=== PATIENT | female | born 1970 | race Caucasian/White ===

== ENCOUNTER 2019-05-09 14:02 | Outpatient (RCR) | payer MEDICARE, MEDICAID, SELFPAY | END 2019-06-04 00:01 | LOC: MPT 14:02 | PROVIDERS: Family Provider Nurse Practitioner; Visit Provider Specialist | DX: M51.16 Intervertebral disc disorders with radiculopathy, lumbar region (principal) | CPT/HCPCS: 97110; 97140; 97162; G0283 ==

== ENCOUNTER 2019-06-05 06:00 | Outpatient (RCR) | payer MEDICARE, SELFPAY | END 2019-07-05 23:59 | disposition home or self-care (01) | LOC: MPT 06:00 | PROVIDERS: PCP Nurse Practitioner; Visit Provider Specialist | DX: M54.5 Low back pain (principal) | CPT/HCPCS: 97032; 97110; 97113; 97140 ==

== ENCOUNTER → 2019-06-24 09:58 | Outpatient (BNVA) | payer MEDICARE, MEDICAID, SELFPAY | PROVIDERS: PCP Nurse Practitioner; Referring Provider Specialist; Visit Provider Psychiatry & Neurology Neurology | DX: M51.17 Intervertebral disc disorders with radiculopathy, lumbosacral region (principal); M54.9 Dorsalgia, unspecified; M79.604 Pain in right leg; M79.605 Pain in left leg | CPT/HCPCS: 95886; 95909 ==

== ENCOUNTER → 2019-07-22 09:50 | Outpatient (BNVA) | payer MEDICARE, MEDICAID, SELFPAY | PROVIDERS: Family Provider Nurse Practitioner; PCP Nurse Practitioner; Visit Provider Anesthesiology Pain Medicine | DX: M79.18 Myalgia, other site (principal); M51.16 Intervertebral disc disorders with radiculopathy, lumbar region; M43.16 Spondylolisthesis, lumbar region; M96.1 Postlaminectomy syndrome, not elsewhere classified; Z98.1 Arthrodesis status; F17.210 Nicotine dependence, cigarettes, uncomplicated; Z79.891 Long term (current) use of opiate analgesic | CPT/HCPCS: 20553; 99999 ==

== ENCOUNTER 2019-07-23 08:34 | Outpatient (CLI) | payer MEDICARE, MEDICAID, SELFPAY ==
--- NOTE | 2019-07-23 08:45 | XR_ITS ---
WS: [id number] LUMBAR SPINE FLEXION AND EXTENSION TECHNIQUE: 3 views of the lumbar spine: Lateral neutral, flexion, and extension views. CLINICAL INFORMATION: lumbar pain COMPARISON: None. FINDINGS: Normal lumbar alignment on the neutral view. No instability on the flexion and extension views. Prior postoperative changes pedicle screw fixation L4-5. Hardware appears unchanged. XR/XR lumbar spine f/e only [id number] IMPRESSION: Stable pedicle screw fixation L4-5. No instability on flexion-extension.
--- NOTE | 2019-07-23 08:52 | MR_ITS ---
WS: [id number] MRI LUMBAR SPINE WITH CONTRAST TECHNIQUE: Sagittal T1, T2 and STIR imaging. Axial T1 and T2 imaging. Post gadolinium imaging was obt ained. CLINICAL INFORMATION: lumbar pain, INTERVERTEBRAL DISC DISORDER COMPARISON: None. FINDINGS: Normal anatomic alignment. Postoperative changes pedicle screw fixation L4-5 with interbody fusion. M ild disc bulging L3-4. 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 Mild chronic central canal stenosi s at this level with mild disc bulging at T10-11. L1-L2: Normal. L2-L3: No significant disc bulging. Mild facet arthropathy. Spinal canal and foramen are patent. L3-L4: Left pericentral disc protrusion with impingement left subarticular recess and traversing left L4 nerve root. Moderate central canal stenosis. Moderate facet arthropathy. Mild right greater than left foraminal narrowing. L4-L5: Pedicle screw fixation with laminectomy defects. Moderate facet arthropathy. Spinal canal and foramen are patent. L5-S1: Tiny central disc protrusion. Moderate facet arthropathy. Spinal canal and foramen are patent. Visualized pelvic bony structures: Normal. Paravertebral soft tissues: Normal. Prior postoperative changes cervical spine seen on the coremaker machine imaging. MR/MR lumbar spine wo/w con [id number] IMPRESSION: 1. Prominent left pericentral disc protrusion L3-4 impinges the left subarticu lar recess and left L4 nerve root. Moderate central canal stenosis. Mild right greater than left foraminal narrowing. 2. Prior postoperative changes pedicle screw fixation L4-5 with interbody fusi on. Laminectomy defects. Spinal canal has been decompressed. 3. Tiny central protrusion L5-S1 without significant nerve root impingement. 4. Congenital segmentation anomaly T11 vertebral body with mild chronic centra l canal stenosis
== END 2019-07-23 08:35 | disposition home or self-care (01) ==
LOC: RADWPI 08:40
PROVIDERS: Family Provider Nurse Practitioner; PCP Nurse Practitioner; Visit Provider Specialist
DX: M51.26 Other intervertebral disc displacement, lumbar region (principal); M48.04 Spinal stenosis, thoracic region
CPT/HCPCS: 72120; 72158; A9579

== ENCOUNTER → 2019-08-01 12:58 | Outpatient (BNVA) | payer MEDICARE, SELFPAY | PROVIDERS: Family Provider Nurse Practitioner; PCP Nurse Practitioner; Visit Provider Anesthesiology Pain Medicine | DX: M51.16 Intervertebral disc disorders with radiculopathy, lumbar region (principal); M51.36 Other intervertebral disc degeneration, lumbar region; F17.210 Nicotine dependence, cigarettes, uncomplicated | CPT/HCPCS: 64483; 77003; J1040; J2001; J3490 ==

== ENCOUNTER → 2019-08-09 10:40 | Outpatient (BNVA) | payer MEDICARE, SELFPAY | PROVIDERS: Family Provider Nurse Practitioner; PCP Nurse Practitioner; Visit Provider Anesthesiology Pain Medicine | DX: M96.1 Postlaminectomy syndrome, not elsewhere classified (principal); M51.16 Intervertebral disc disorders with radiculopathy, lumbar region; M79.18 Myalgia, other site; M54.9 Dorsalgia, unspecified; M43.16 Spondylolisthesis, lumbar region; Z98.1 Arthrodesis status | CPT/HCPCS: 20553; 99999; J1030; J3490 ==

== ENCOUNTER → 2019-08-13 14:19 | Outpatient (BNVA) | payer MEDICARE, SELFPAY | PROVIDERS: Family Provider Nurse Practitioner; PCP Nurse Practitioner; Visit Provider Anesthesiology Pain Medicine | DX: M51.16 Intervertebral disc disorders with radiculopathy, lumbar region (principal); M96.1 Postlaminectomy syndrome, not elsewhere classified; F17.210 Nicotine dependence, cigarettes, uncomplicated; Z79.891 Long term (current) use of opiate analgesic | CPT/HCPCS: 64483; 64484; J1030; J2001; J3490 ==

== ENCOUNTER → 2020-01-02 10:15 | Outpatient (BNVA) | payer MEDICARE, SELFPAY | PROVIDERS: Family Provider Nurse Practitioner; PCP Nurse Practitioner; Visit Provider Emergency Medicine | DX: N39.0 Urinary tract infection, site not specified (principal) | CPT/HCPCS: 81000 ==

== ENCOUNTER → 2020-04-02 09:44 | Outpatient (BNVA) | payer MEDICARE, SELFPAY | PROVIDERS: Family Provider Nurse Practitioner; PCP Physician Assistant Medical; Visit Provider Anesthesiology Pain Medicine | DX: M51.16 Intervertebral disc disorders with radiculopathy, lumbar region (principal); M43.16 Spondylolisthesis, lumbar region; M96.1 Postlaminectomy syndrome, not elsewhere classified; M54.9 Dorsalgia, unspecified; F17.210 Nicotine dependence, cigarettes, uncomplicated; Z98.1 Arthrodesis status; Z79.891 Long term (current) use of opiate analgesic | CPT/HCPCS: 99213; 99214 ==

== ENCOUNTER → 2020-04-10 13:04 | Outpatient (BNVA) | payer MEDICARE, SELFPAY | PROVIDERS: Family Provider Nurse Practitioner; PCP Physician Assistant Medical; Visit Provider Anesthesiology Pain Medicine | DX: M54.16 Radiculopathy, lumbar region (principal); M54.9 Dorsalgia, unspecified; Z79.891 Long term (current) use of opiate analgesic | CPT/HCPCS: 64483; 64484; J1100; J3490 ==

== ENCOUNTER → 2020-05-15 10:19 | Outpatient (BNVA) | payer MEDICARE, SELFPAY | PROVIDERS: Family Provider Nurse Practitioner; PCP Physician Assistant Medical; Visit Provider Anesthesiology Pain Medicine | DX: M51.16 Intervertebral disc disorders with radiculopathy, lumbar region (principal); M54.9 Dorsalgia, unspecified; M96.1 Postlaminectomy syndrome, not elsewhere classified; M43.16 Spondylolisthesis, lumbar region; Z98.1 Arthrodesis status | CPT/HCPCS: 99212; 99214 ==

== ENCOUNTER 2021-05-12 02:12 | Emergency (ER) | payer MEDICARE, MEDICAID, SELFPAY ==
--- NOTE | 2021-05-12 | XR_ITS ---
WS: [id number] Exam: XR wrist RT min 3V* [id number] Date/Time of Exam: 05/12/2021 12:00 AM Reason For Exam: INJURY There are no fractures, soft tissue swelling, or unusual calcifications. The wrist shows normal bony alignment. There is no irregularity of the bony architecture. XR/XR wrist RT min 3V* [id number] IMPRESSION: Negative right wrist.
[2021-05-12 02:12] VITALS: BP 128/81; PULSE 86; RESP 18; TEMP 37.2; O2SAT 98; BMI 30.7
--- NOTE | 2021-05-12 02:21 | XRR_ITS ---
PROCEDURE INFORMATION: Exam: XR Right Elbow Exam date and time: 05/12/2021 2:21 AM Age: 50 years old Clinical indication: Injury or trauma; Fall; Blunt trauma (contusions or hematomas); Right; Patient HX: Patient fell with hyperextension of RT shoulder. Also C/O elbow and wrist pain. Best films obtained as patient could barely ambulate arm for positioning. TECHNIQUE: Imaging protocol: XR Right elbow. Views: 3 or more views. Total images: 3 COMPARISON: CR (CHEST, ) 05/12/2021 3:27 AM FINDINGS: Bones/joints: Normal. Soft tissues: Normal. XR/XR elbow RT min 3V* [id number] IMPRESSION: No acute findings.
--- NOTE | 2021-05-12 02:21 | XRR_ITS ---
PROCEDURE INFORMATION: Exam: XR Right Shoulder Exam date and time: 05/12/2021 2:21 AM Age: 50 years old Clinical indication: Injury or trauma; Fall; Blunt trauma (contusions or hematomas); Right; Patient HX: Patient fell with hyperextension of RT shoulder. Also C/O elbow and wrist pain. Best films obtained as patient could barely ambulate arm for positioning. TECHNIQUE: Imaging protocol: XR Right shoulder. Views: 2 or more views. Total images: 3 COMPARISON: No relevant prior studies available. FINDINGS: Bones/joints: Partially visualized spinal fusion hardware noted. No acute fracture nor subluxation. No osseous erosion nor periosteal reaction. Soft tissues: Normal. XR/XR shoulder RT min 2V* [id number] IMPRESSION: No acute osseous pathology.
--- NOTE | 2021-05-12 02:22 | W.ED.UPPEXIN ---
HPI - Extremity Injury (Upper) General: Chief Complaint: Extremity Injury, Upper Stated Complaint: right shoulder pain post fall Time Seen by Provider: 05/12/21 02:16 History of Present Illness: HPI narrative: 50-year-old female comes in today with complaints of injury to the right shoulder and arm. Patient reports she went to get up to go the bathroom and tripped and fell. Patient reports that her right arm went up behind her head since then she has had difficulty and pain in the shoulder. Patient appears well. Patient appears no acute distress. Patient has shoulder in the sling for protection. No obvious dislocation is noted. Review of Systems General: Reports: 10 or more systems reviewed and unremarkable except in HPI and below Musc: Reports: other (Right upper extremity injury) [facility] ED PFSH: Medical History (Updated 05/12/21 @ 03:03 by PARTH Melendez) Postlaminectomy syndrome of lumbosacral region Spondylolisthesis, lumbar region Tobacco abuse Surgical History H/O: hysterectomy (~1993) History of appendectomy (~1989) History of cholecystectomy (~1994) History of lumbar fusion (~05/10/11) S/P cervical spinal fusion (~06/15/06) Family History Mother Diabetes Hypertension CAD (coronary artery disease) Sister Hypertension Father Hypertension Social History Smoking and tobacco status: current every day smoker Alcohol intake: never Lives independently: Yes Marital status: Current occupational status: unemployed and disabled Physical Exam Const: COMMON NORMALS: no acute distress and patient oriented x3 GENERAL APPEARANCE: cooperative HENMT: COMMON NORMALS: normocephalic, TM's normal bilaterally and Normal external nose present HEAD & SCALP: normal to inspection and normocephalic NOSE: Normal external nose present TYMPANIC MEMBRANE: TM's normal bilaterally MOUTH: Normal oral and palatal mucosa present THROAT: posterior oropharynx normal Eye: GENERAL EYE: appearance normal, both eyes and all related structures Neck/C-Spine: COMMON NORMALS: full ROM Chest: COMMONS NORMALS: normal inspection of the chest Resp: COMMON NORMALS: normal respiratory effort EFFORT & INSPECTION: Yes able to speak in complete sentences Cardio: COMMON NORMALS: regular rate and regular rhythm RATE: regular rate RHYTHM: regular rhythm GI: COMMON NORMALS: non-tender Back/Pelvis: COMMON NORMALS: thoracic and lumbar spine normal to inspection Extremity: NARRATIVE EXTREMITY EXAM: Tenderness noted to the right shoulder anteriorly. Tenderness is also noted to the elbow and wrist on palpation. Patient does have range of motion but is very guarded due to pain. Neuro: COMMON NORMALS: patient oriented x3 and moves all extremities Psych: COMMON NORMALS: mental status grossly normal and cooperative Skin: COMMON NORMALS: no rashes or lesions noted GENERAL SKIN EXAM: no rashes or lesions noted Course Vital Signs: Vital signs: Vital Signs Temperature 98.9 F 05/12/21 02:12 Pulse Rate 92 05/12/21 04:27 Respiratory Rate 18 05/12/21 04:27 Blood Pressure 145/68 05/12/21 04:27 Pulse Oximetry 95 05/12/21 04:27 MDM - Extremity Injury (Upper) MDM Narrative: Medical decision making narrative: Patient comes in [facility] for concerns of injury to the right shoulder. Patient reports she was getting up off the couch and tripped causing her to fall onto her right side with her arm outstretched in front of her. Patient reports shoulder pain and radiation of pain into her elbow and wrist. On exam there is no obvious deformity or dislocation. Pulses are intact. Patient is very guarded with movement of the shoulder. Differential diagnosis includes but not limited to dislocation, fracture, sprain. X-rays were negative for any fractures or dislocation. Suspect a sprain of the shoulder possible rotator cuff injury. Patient requested follow-up with orthopedist for further evaluation and treatment. Case management was consulted for follow-up appointment. Encourage patient to use shoulder as tolerated. Use ice packs to the area for the next 48 to 72 hours. Use acetaminophen and ibuprofen for control of pain. Patient reported understanding and agreed to plan. Discharge Plan Discharge Patient Disposition: Home Clinical Impression: Sprain of right shoulder Qualifiers: Encounter type: initial encounter Shoulder sprain type: unspecified sprain Qualified Code(s): S43.401A - Unspecified sprain of right shoulder joint, initial encounter Condition: Stable Prescriptions: No Action All Day Allergy (cetirizine) 10 mg capsule 10 mg PO DAILY RF: 0 baclofen 10 mg tablet 10 mg PO TID PRNRF: 0 ibuprofen 800 mg tablet 800 mg PO BID PRNRF: 0 promethazine 25 mg tablet 25 mg PO ONCE PRNRF: 0 venlafaxine [Effexor XR] 37.5 mg capsule,extended release 24hr 37.5 mg PO DAILY RF: 0 famotidine 20 mg tablet 20 mg PO .2 BID RF: 0 hydrocodone-acetaminophen PO RF: 0 montelukast [Singulair] 10 mg tablet 10 mg PO DAILY RF: 0 celecoxib [Celebrex] 200 mg capsule 200 mg PO DAILY Qty: 30 RF: 0 Discharge Orders: Discharge ED (Routine); Ordered 05/12/21 Ordered By: Abhay Brayn Referrals: Curtis George [Referring] - Discharge Diet: Usual diet Discharge Activity: Increase activity as tolerated Patient Instructions: Shoulder Sprain (ED) Activity Restrictions/Additional Instructions: Activity as tolerated, Use sling sparingly. Use ice to shoulder to help with pain and swelling. Follow-up with primary care for further treatment. Return to ER for new concerns. Case management will contact you with orthopedic follow-up. Coding Level of Care Code ED Territory Sales Manager for Evelia Fwapril Exam Comprehensive
[2021-05-12 02:57] VITALS: RESP 18; O2SAT 98
[2021-05-12] MEDS: HYDROmorphone 1 mg/mL INJ 1 mL IVP (02:57)
[2021-05-12] MEDS: metoclopramide 5 mg/mL SDV 2 mL 10 MG IVP (03:30)
[2021-05-12] MEDS: diphenhydrAMINE 50 mg/mL SDV 1mL IVP (03:30)
[2021-05-12 04:27] VITALS: BP 145/68; PULSE 92; RESP 18; O2SAT 95
--- NOTE | 2021-05-13 08:57 | DCPLANNER ---
product manager financial services had message to schedule a follow up appointment for patient with ortho. product manager financial services called the ortho clinic, spoke with Penny, gave clinic patients information. product manager financial services was told that patients information would be printed and reviewed. Clinic will call patient with appointment information.
--- NOTE | 2021-05-17 04:54 | DCPLANNER ---
Patient has a follow up appointment scheduled for Wednesday, May 19, 2021 at 1:[address] Davis. Clinic will call patient with appointment information.
--- NOTE | 2021-06-02 15:36 | DCPLANNER ---
Patient had a follow up appointment scheduled for 05.19.21 with ortho - patient did attend appointment.
== END 2021-05-12 04:34 | disposition home or self-care (01) ==
PROVIDERS: Emergency Provider Nurse Practitioner Family
DX: S43.401A Unspecified sprain of right shoulder joint, initial encounter (principal); F17.210 Nicotine dependence, cigarettes, uncomplicated; W01.0XXA Fall on same level from slipping, tripping and stumbling without subsequent striking against object, initial encounter
CPT/HCPCS: 73030; 73080; 73110; 96374; 96375; 99284; J1170; J1200; J2765

== ENCOUNTER 2021-05-25 13:19 | Outpatient (CLI) | payer MEDICARE, MEDICAID, SELFPAY ==
--- NOTE | 2021-05-25 13:45 | MR_ITS ---
WS: [id number] MRI RIGHT SHOULDER NONCONTRAST TECHNIQUE: Sagittal T2, coronal T1, T2 and proton density imaging. Axial gradient PDE imaging. CLINICAL INFORMATION: S43.401A - Unspecified sprain of right shoulder joint, in... COMPARISON: None. FINDINGS: Moderate degenerative arthritis AC joint with mild edema. Mild downsloping acromion. Slight subacromi al spurring. Diffuse edema in the humeral head laterally. Small amount of surrounding fluid. Suspect impacted nondisplaced fracture involving the anterolateral humeral head and greater tuberosity. Small fracture lines seen on the T1 imaging. No displaced fractures. Diffuse T2 signal abnormality in the distal supraspinatus compatible with tendinopathy. Tiny intrasub stance tears. No full-thickness rotator cuff tears. Tiny intrasubstance tear involving the distal inf raspinatus.. Normal teres minor. Normal subscapularis. Normal biceps tendon in the bicipital groove. Normal biceps labral anchor. Glenoid labrum appears grossly normal. Normal coracoid. MR/MR shoulder RT wo con* [id number] IMPRESSION: 1. Diffuse edema likely due to impacted fracture with contusion involving the anterolateral humeral head. Slight cortical irregularity seen on the lateral vi ew. Tiny fracture lines seen on the T1 imaging. No displaced fractures. 2. Tendinopathy with tiny intrasubstance tears involving the distal supraspina tus. No full-thickness rotator cuff tears. 3. Tiny intrasubstance tear involving the distal infraspinatus. 4. Normal biceps tendon in the bicipital groove. Normal biceps labral anchor. 5. Intra-articular biceps tendon is normal. 6. Moderate arthritis AC joint with edema and mild narrowing of the subacromia l space.
== END 2021-05-25 13:20 | disposition home or self-care (01) ==
LOC: RADSHAW 13:26
PROVIDERS: Visit Provider Orthopaedic Surgery
DX: R60.0 Localized edema (principal); M19.011 Primary osteoarthritis, right shoulder; S46.811A Strain of other muscles, fascia and tendons at shoulder and upper arm level, right arm, initial encounter; X58.XXXA Exposure to other specified factors, initial encounter
CPT/HCPCS: 73221

== ENCOUNTER → 2021-06-08 13:38 | Outpatient (BNVA) | payer MEDICARE, MEDICAID, SELFPAY | PROVIDERS: Referring Provider Orthopaedic Surgery; Visit Provider Orthopaedic Surgery | DX: M43.16 Spondylolisthesis, lumbar region (principal); M50.31 Other cervical disc degeneration, high cervical region; M43.27 Fusion of spine, lumbosacral region | CPT/HCPCS: 72050; 72110 ==

== ENCOUNTER 2021-07-06 06:00 | Outpatient (RCR) | payer MEDICARE, MEDICAID, SELFPAY | END 2021-08-02 23:59 | disposition home or self-care (01) | LOC: MPT 06:00 | PROVIDERS: Referring Provider Orthopaedic Surgery; Visit Provider Orthopaedic Surgery | DX: S42.91XD Fracture of right shoulder girdle, part unspecified, subsequent encounter for fracture with routine healing (principal); X58.XXXD Exposure to other specified factors, subsequent encounter | CPT/HCPCS: 97110; 97162 ==

== ENCOUNTER → 2021-07-12 10:33 | Outpatient (BNVA) | payer MEDICARE, MEDICAID, SELFPAY | PROVIDERS: Visit Provider Orthopaedic Surgery | DX: M48.062 Spinal stenosis, lumbar region with neurogenic claudication (principal); M46.90 Unspecified inflammatory spondylopathy, site unspecified | CPT/HCPCS: 80053; 85651; 86140; 86160; 86162; 86200; 86235; 86255; 86376; 86431 ==

== ENCOUNTER → 2021-07-22 09:38 | Outpatient (BNVA) | payer MEDICARE, MEDICAID, SELFPAY | PROVIDERS: Visit Provider Internal Medicine | DX: M25.50 Pain in unspecified joint (principal); E06.3 Autoimmune thyroiditis; R70.0 Elevated erythrocyte sedimentation rate; Z11.59 Encounter for screening for other viral diseases; L40.9 Psoriasis, unspecified | CPT/HCPCS: 36415; 72202; 73120; 73620; 82533; 82550; 82607; 82728; 82784; 83516; 83540; 84425; 84439; 84480; 84481; 86704; 86803; 87340; 99204 ==

== ENCOUNTER 2021-07-22 11:42 | Outpatient (CLI) | payer MEDICARE, MEDICAID, SELFPAY ==
--- NOTE | 2021-07-22 12:00 | XR_ITS ---
WS: [id number] Right foot, AP and lateral views, 07/22/2021 Clinical Data: M25.50 - Pain in unspecified joint Comparison: None. Findings: No fractures or dislocations are seen. No bone destruction or erosion is noted. The joint spaces and soft tissues are normal. No periarticular demineralization or calcifications are seen. XR/XR foot RT 2V [id number] Impression: Negative right foot.
--- NOTE | 2021-07-22 12:00 | XR_ITS ---
WS: [email or web address] Right hand, AP and lateral views, 07/22/2021 Clinical Data: R70.0 - Elevated erythrocyte sedimentation rate Comparison: None. Findings: No fractures or dislocations are seen. The soft tissues are unremarkable. The joint space s are normal No periarticular demineralization or calcifications are seen. XR/XR hand RT 2V [id number] Impression: Negative right hand.
--- NOTE | 2021-07-22 12:00 | XR_ITS ---
WS: [email or web address] Left hand, 2 views, 07/22/2021 Clinical Data: R70.0 - Elevated erythrocyte sedimentation rate Comparison: None. Findings: No fractures or dislocations are seen. The soft tissues are unremarkable. The joint spaces are normal No periarticular demineralization or calcifications are seen. XR/XR hand LT 2V [id number] Impression: Negative left hand.
--- NOTE | 2021-07-22 12:00 | XR_ITS ---
WS: [email or web address] Left foot, AP and lateral views, 07/22/2021 Clinical Data: M25.50 - Pain in unspecified joint Comparison: None. Findings: No fractures or dislocations are seen. No bone destruction or erosion is noted. The joint spaces and soft tissues are normal. There is a small plantar spur. No periarticular demineralization or calcifications are seen. XR/XR foot LT 2V [id number] Impression: Negative left foot.
--- NOTE | 2021-07-22 12:00 | XR_ITS ---
WS: [email or web address] Sacroiliac joints, 3 views, 07/22/2021 Clinical Data: L40.9 - Psoriasis, unspecified Comparison: None. Findings: The SI joints are normal in width. No erosion, sclerosis or destruction is seen. There are no fractur es or dislocations. The patient is had a posterior lumbar fusion of bilateral pedicle screws and conn ecting rods at L5-S1. There are surgical clips in the left side of the true pelvis. The adjacent visualized pelvis and hips are unremarkable. XR/XR sacroiliac jts m 3V [id number] Impression: Negative SI joints.
[2021-07-22 13:57] LABS: Creatine Phosphokinase 53 U/L (26-192); Immunoglobulin IGA 325 mg/dL (70-400); Immunoglobulin IGG 886 mg/dL (700-1600); Immunoglobulin IGM 79 mg/dL (40-230); T3 Free 3.1 PG/ML (2.0-4.4)
[2021-07-22 14:04] LABS: Cortisol Random 4.79 ug/dL (2.47-19.5); Hepatitis B Surface Antigen Non-Reactive (Nonreactive); Hepatitis C Virus Antibody Non-Reactive (Nonreactive)
[2021-07-22 14:30] LABS: Ferritin 28 ng/mL (15-150); Iron 71 ug/dL (37-145)
[2021-07-22 14:46] LABS: Vitamin B12 360 pg/mL (232-1245)
[2021-07-22 14:54] LABS: Hepatitis B Core AB, Total Reactive (Nonreactive)
[2021-07-23 09:53] LABS: T3 Total 106 ng/dL (76-181)
[2021-07-28 12:48] LABS: Vitamin B1(Thiamin) Plas/Ser 11 nmol/L (8-30)
== END 2021-07-22 11:43 | disposition home or self-care (01) ==
PROVIDERS: Visit Provider Internal Medicine
DX: R70.0 Elevated erythrocyte sedimentation rate (principal); L40.9 Psoriasis, unspecified; M25.50 Pain in unspecified joint; E06.3 Autoimmune thyroiditis; Z11.59 Encounter for screening for other viral diseases
CPT/HCPCS: 36415; 72202; 73120; 73620; 82533; 82550; 82607; 82728; 82784; 83516; 83540; 84425; 84439; 84480; 84481; 86704; 86803; 87340

== ENCOUNTER 2021-08-03 06:00 | Outpatient (RCR) | payer MEDICARE, MEDICAID, SELFPAY | END 2021-09-02 23:59 | disposition home or self-care (01) | LOC: MPT 06:00 | PROVIDERS: Referring Provider Orthopaedic Surgery; Visit Provider Orthopaedic Surgery | DX: M25.511 Pain in right shoulder (principal) | CPT/HCPCS: 97110; 97140; 99214; G0283 ==

== ENCOUNTER 2021-08-05 07:43 | Outpatient (CLI) | payer MEDICARE, MEDICAID, SELFPAY ==
--- NOTE | 2021-08-05 08:03 | MR_ITS ---
WS: [id number] MRI CERVICAL SPINE with and without contrast. HISTORY: M54.2 - Cervicalgia COMPARISON: 07/04/2016 Technique: Multiplanar, multisequence noncontrast imaging of the cervical spine. Contrast: MultiHance 19 mL IV. Straightening of the normal cervical lordosis. Prior cervical fusion at C5-6 with interbody spacer an d fusion at the disc level. There is small amount of edema within the C4 and C5 vertebral bodies. Signal within the cervical cord is normal. Visualized posterior fossa is unremarkable. Craniocervical junction, C1 and C2 relationship, odontoid process and soft tissues are normal. C2-C3: Normal. C3-C4: Mild disc bulging with focal osteophyte extending into the proximal LEFT foramen causing moder ate stenosis and posterior displacement of the nerve roots. C4-C5: Very slight annular disc bulging. Disc osteophyte complex extends into the LEFT foramen. Moder ate encroachment and narrowing on the exiting nerve root. C5-C6: No high-grade stenosis. C6-C7: No high-grade stenosis. C7-T1: No stenosis. No paraspinal abnormality. On the postcontrast imaging no discitis or osteomyelitis is identified. MR/MR cervical spine wo/w [id number] IMPRESSION: 1. Status post prior C5-6 anterior fusion with interbody spacer. 2. Moderate size osteophyte encroaching into the proximal LEFT foramen at C3-4 resulting in moderate stenosis and displacement of the nerve root. Osteophyte and stenosis have progressed since the prior study. 3. Disc osteophyte complex LEFT foramen of C4-5 with moderate encroachment upo n the nerve root. New since the prior study.
--- NOTE | 2021-08-05 08:03 | MR_ITS ---
WS: [email or web address] MRI LUMBAR SPINE WITH AND WITHOUT CONTRAST HISTORY: M43.16 - Spondylolisthesis, lumbar region COMPARISON: 07/23/2019 TECHNIQUE: Sagittal and axial multisequence imaging is submitted. Contrast: MultiHance 18 mL IV. Vertebral bodies are numbered beginning at the C2 level. Segmentation abnormality at T12. 5 nonrib-be aring vertebral bodies. S1 appears partially lumbarized. There is a posterior lumbar fusion at the L5 -S1 level. Slight increase in the normal lumbar lordosis. Disc space narrowing at L5-S1. Osteochondrosis along the endplates. There is stable cyst along the po sterior thecal sac measuring 17 x 11 mm May be a small pseudomeningocele. No increase in size. Conus terminates normally at L1-2 disc level. L1-L2: Normal. L2-L3: Mild ligamentum flavum hypertrophy. L3-L4: Mild facet and ligamentum flavum hypertrophy. L4-L5: Central disc protrusion with mild encroachment upon the ventral thecal sac. Lobulated disc pro trusion centrally has significantly decreased in size. Annular fissure associated with the disc protr usion. There is disc and osteophyte narrowing of the central canal and subarticular recesses. Centra l and bilateral subarticular recess encroachment. Slightly greater on the exiting L5 nerve root. L5-S1: No central stenosis. Hardware is causing some artifact. No definite disc protrusions. On the postcontrast imaging there is no discitis or osteomyelitis. No soft tissue enhancement. MR/MR lumbar spine wo/w con [id number] IMPRESSION: 1. Numbering the vertebral bodies from the C2 level there are 5 lumbar type ve rtebral bodies and the S1 vertebral body be partially lumbarized. Posterior lum bar fusion is probably at the L5-S1 level. 2. Small central disc protrusion at L4-5 encroaching upon the exiting nerve ro ots, greatest on the LEFT. This level has been described as L3-4 in the past. T his numbering difference should be taking into consideration if surgery is cont emplated. Protrusion is at the level just above the posterior fusion. Mild cent ral and bilateral subarticular recess encroachment.
[2021-08-05] MEDS: gadobenate dimeglumine 20 mL vial IV (09:49)
== END 2021-08-05 07:44 | disposition home or self-care (01) ==
PROVIDERS: Visit Provider Orthopaedic Surgery
DX: M43.16 Spondylolisthesis, lumbar region (principal); M96.1 Postlaminectomy syndrome, not elsewhere classified; M51.26 Other intervertebral disc displacement, lumbar region; M25.78 Osteophyte, vertebrae; M43.22 Fusion of spine, cervical region
CPT/HCPCS: 72156; 72158

== ENCOUNTER → 2021-08-30 10:30 | Outpatient (BNVA) | payer MEDICARE, MEDICAID, SELFPAY | PROVIDERS: Referring Provider Internal Medicine; Visit Provider Internal Medicine | DX: E06.3 Autoimmune thyroiditis (principal); E04.1 Nontoxic single thyroid nodule; E03.8 Other specified hypothyroidism; R76.8 Other specified abnormal immunological findings in serum; F17.200 Nicotine dependence, unspecified, uncomplicated | CPT/HCPCS: 84443; 99204 ==

== ENCOUNTER 2021-09-03 06:00 | Outpatient (RCR) | payer MEDICARE, MEDICAID, SELFPAY | END 2021-10-02 23:59 | disposition home or self-care (01) | LOC: MPT 06:00 | PROVIDERS: Referring Provider Orthopaedic Surgery; Visit Provider Orthopaedic Surgery | DX: S42.251D Displaced fracture of greater tuberosity of right humerus, subsequent encounter for fracture with routine healing (principal) | CPT/HCPCS: 97110; 97140; G0283 ==

== ENCOUNTER → 2021-09-23 11:34 | Outpatient (BNVA) | payer MEDICARE, MEDICAID, SELFPAY | PROVIDERS: Visit Provider Internal Medicine | DX: B19.10 Unspecified viral hepatitis B without hepatic coma (principal) | CPT/HCPCS: 86706; 87517 ==

== ENCOUNTER 2021-10-03 | Outpatient (RCR) | payer MEDICARE, MEDICAID, SELFPAY | END 2021-11-02 23:59 | disposition home or self-care (01) | LOC: MPT | PROVIDERS: Referring Provider Physician Assistant; Visit Provider Physician Assistant | DX: N39.46 Mixed incontinence (principal) | CPT/HCPCS: 97140; 97161; 97530 ==

== ENCOUNTER 2021-10-03 | Outpatient (RCR) | payer MEDICARE, MEDICAID, SELFPAY | END 2021-11-02 23:59 | disposition home or self-care (01) | LOC: MPT | PROVIDERS: Referring Provider Orthopaedic Surgery; Visit Provider Orthopaedic Surgery | DX: S42.251D Displaced fracture of greater tuberosity of right humerus, subsequent encounter for fracture with routine healing (principal); X58.XXXD Exposure to other specified factors, subsequent encounter | CPT/HCPCS: 97110; 97140; G0283 ==

== ENCOUNTER → 2021-10-11 13:53 | Outpatient (BNVA) | payer MEDICARE, MEDICAID, SELFPAY | PROVIDERS: Visit Provider Internal Medicine | DX: E06.3 Autoimmune thyroiditis (principal) | CPT/HCPCS: 84439; 84443 ==

== ENCOUNTER → 2021-10-25 13:58 | Outpatient (BNVA) | payer MEDICARE, MEDICAID, SELFPAY | PROVIDERS: PCP Physician Assistant; Visit Provider Internal Medicine | DX: E06.3 Autoimmune thyroiditis (principal); E03.8 Other specified hypothyroidism; E04.1 Nontoxic single thyroid nodule; H53.8 Other visual disturbances; N63.0 Unspecified lump in unspecified breast; G43.909 Migraine, unspecified, not intractable, without status migrainosus; F17.210 Nicotine dependence, cigarettes, uncomplicated | CPT/HCPCS: 99214 ==

== ENCOUNTER → 2021-10-29 08:59 | Outpatient (BNVA) | payer MEDICARE, MEDICAID, SELFPAY | PROVIDERS: PCP Physician Assistant; Visit Provider Orthopaedic Surgery | DX: S42.251A Displaced fracture of greater tuberosity of right humerus, initial encounter for closed fracture (principal); W19.XXXA Unspecified fall, initial encounter | CPT/HCPCS: 99213 ==

== ENCOUNTER 2021-11-25 09:55 | Outpatient (CLI) | payer MEDICARE, MEDICAID, SELFPAY ==
[2021-11-25 11:19] LABS: Alanine Aminotransferase 11 U/L (0-33); Albumin Level 4.2 g/dL (3.5-5.2); Alkaline Phosphatase 110 IU/L (35-105); Anion Gap 17.4 (5-19); Aspartate Amino Transferase 11 U/L (0-32); Blood Urea Nitrogen 12 mg/dL (6-20); Calcium 9.3 mg/dL (8.5-10.5); Carbon Dioxide 21 mmol/L (22-29); Chloride 104 mmol/L (98-107); Globulin 2.8 g/dL (1.3-4.6); Glomerular Filtration Rate 87.9 mL/min (90-130); Glucose 109 mg/dL (65-115); Osmolality Calculated 286 mOsm/kg (285-295); Potassium 4.4 mmol/L (3.5-5.1); Sodium 138 mmol/L (136-145); Total Bilirubin 0.2 mg/dL (0.15-1.2)
[2021-11-25 12:04] LABS: Basophils # 0.1 10^3/uL (0.0-0.1); Eosinophils # 0.1 10^3/uL (0.0-0.8); Mean Corpuscular Hemoglobin 29.6 pg (28.0-34.0); Monocytes # 0.4 10^3/uL (0.2-0.9); Nucleated Red Blood Cells % 0 %; Red Cell Distribution Width 12.7 % (12.1-15.1)
[2021-11-25 12:22] LABS: Add Urine Microscopic? NO; Charge for UA Resulting for Rev
[2021-11-25 12:32] LABS: Bilirubin Urine Neg (Negative); Blood Urine Neg (Negative); Glucose Urine UA Norm (Normal); Ketones Urine Negative (Negative); Leukocyte Esterase Urine Negative (Negative); Nitrate Urine Negative (Negative); Protein Urine Neg (Negative); Urine Appearance Clear (CLEAR); Urine Color Yellow (Yellow); Urobilinogen Urine Norm (Negative); pH Urine 6 (5-7)
[2021-11-25 12:45] LABS: Basophils % 0.9 %; Eosinophils % 1.7 %; Hematocrit 45.2 % (37.0-47.0); Hemoglobin 14.8 g/dL (11.5-15.3); Lymphocytes # 2.8 10^3/uL (0.8-4.8); Lymphocytes % 33.8 %; Mean Corpuscular HGB Conc 32.7 g/dL (30.0-36.0); Mean Corpuscular Volume 90.4 fl (81-99); Mean Platelet Volume 10.4 fL (7.4-10.4); Monocytes % 4.8 %; Neutrophils # 4.77 10^3/uL (1.8-7.7); Neutrophils % 58.6 %; Platelet Count 456 10^3/cmm (130-400); White Blood Count 8.1 10^3/uL (4.0-10.0)
--- NOTE | 2021-11-25 16:30 | US_ITS ---
WS: [email or web address] RENAL ULTRASOUND HISTORY: R10.9 - Unspecified abdominal pain COMPARISON: None available. TECHNIQUE: 2-D and color Doppler imaging of the kidney submitted. Right kidney: 10.7 cm x 6.2 cm x 5.4 cm. Normal echogenicity with no hydronephrosis or mass. Left kidney: 10.4 cm x 5.6 cm x 5.8 cm. Normal echogenicity with no hydronephrosis or mass. Aorta: Normal. Urinary Bladder: Normal distention. US/US renal BI* [id number] IMPRESSION: Normal renal ultrasound.
[2021-12-03 13:47] LABS: Erythrocyte Sedimentation Rate 6 mm/hr (0-15)
== END 2021-11-25 09:56 | disposition home or self-care (01) ==
PROVIDERS: PCP Physician Assistant; Visit Provider Internal Medicine
DX: Z98.1 Arthrodesis status (principal); K90.41 Non-celiac gluten sensitivity; M25.50 Pain in unspecified joint; R10.9 Unspecified abdominal pain
CPT/HCPCS: 36415; 76770; 80053; 81003; 85025; 85651; 86140; 99214

== ENCOUNTER → 2021-11-25 16:07 | Outpatient (BNVA) | payer MEDICARE, MEDICAID, SELFPAY | PROVIDERS: PCP Physician Assistant; Visit Provider Orthopaedic Surgery | DX: M25.552 Pain in left hip (principal); M48.062 Spinal stenosis, lumbar region with neurogenic claudication | CPT/HCPCS: 73502; 99214 ==

== ENCOUNTER 2021-12-10 14:25 | Outpatient (CLI) | payer MEDICARE, MEDICAID, SELFPAY ==
--- NOTE | 2021-12-10 14:30 | MR_ITS ---
WS: [email or web address] MRI LUMBAR SPINE NONCONTRAST HISTORY: pain COMPARISON: 08/05/2021. TECHNIQUE: Sagittal and axial multisequence imaging is submitted. Same numbering pattern will be utilized for today's exam as on the study of 08/05/2021. Degenerative disc disease and osteophytosis at C3-3-4 and C4-5. Previously described segmentation ano leeann at what is probably the T12 vertebral body. Mild retropulsion of the posterior T12 vertebral body which contains the segmentation anomaly. There is also mild disc bulging at T11-12. There is slight contact on the thoracic cord and there may be a amount of increased T2 signal now present. There is moderate chronic stenosis which has progressed si nce 2019. Mild narrowing of the subarticular recesses and the central canal and foramina. Prior posterior lumbar fusion at L5-S1. S1 is lumbarized. Moderate disc space narrowing at L5-S1. No marrow edema or acute fracture. Pseudomeningocele is still noted in the surgical defect at the L5 lev el measures 17 x 9 mm and is unchanged. Conus terminates normally at L1-2 disc level. L1-L2: Normal. L2-L3: Normal. L3-L4: Mild disc bulging and facet arthritis. No significant stenosis. L4-L5: Mild annular disc bulge with a central disc protrusion and annular fissure. Ligamentum flavum hypertrophy and facet arthritis. Small vertebral body osteophytes. Moderate central and bilateral sub articular recess and foraminal stenosis. Stenosis has mildly progressed since the prior study. L5-S1: Mild clumping of the nerve roots in the thecal sac. No high-grade stenosis. S1-S2: No change. No stenosis. MR/MR lumbar spine wo con* [id number] IMPRESSION: 1. Posterior lumbar fusion at L5-S1. 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 2. Moderate central and subarticular recess stenosis at T11-12. Mild progressi on of the disc bulging and posterior retropulsion of the congenital segmentatio n of T12. More contact on the ventral thoracic cord and there is a small amount of edema consistent with myelomalacia. 3. Moderate central and bilateral subarticular recess and foraminal stenosis L 4-5. Progression of the central disc protrusion and stenoses since the prior st udy. 4. If surgery is contemplated in this patient please review the numbering christina javy on the MRI to correlate with surgical level.
== END 2021-12-10 14:26 | disposition home or self-care (01) ==
PROVIDERS: PCP Physician Assistant; Visit Provider Orthopaedic Surgery
DX: G83.4 Cauda equina syndrome (principal); Z98.1 Arthrodesis status; M48.04 Spinal stenosis, thoracic region
CPT/HCPCS: 72148

== ENCOUNTER 2021-12-13 13:05 | Outpatient (CLI) | payer MEDICARE, MEDICAID, SELFPAY ==
--- NOTE | 2021-12-13 13:17 | MM_ITS ---
WS: [email or web address] BILATERAL 3D TOMOSYNTHESIS DIGITAL DIAGNOSTIC MAMMOGRAPHY WITH CAD CLINICAL INFORMATION: N63.0 - Unspecified lump in unspecified breast RIGHT breast lump and soreness. COMPARISON: None. TECHNIQUE: Bilateral CC, MLO, and ML views. FINDINGS: The breasts are composed of heterogeneous fibroglandular density, which can limit the detection of sm all underlying mass lesions. Palpable marker overlying the upper outer RIGHT breast. Dense underlying breast tissue. Ultrasound RIGHT breast performed and report below. 8mm ovoid nodule LEFT breast along the posterior nipple line 12:00 areola position. Recommend further evaluation of this area with ultrasound. LEFT breast is otherwise unremarkable. ULTRASOUND BREAST RIGHT TECHNIQUE: Ultrasound right breast focused area of concern. CLINICAL INFORMATION: N63.0 - Unspecified lump in unspecified breast FINDINGS: Multiple clustered cysts are visualized at the 9:00 position in the area of palpable concern. The lar gest measuring 10 x 7 x 8 mm. Findings are benign. No suspicious lesions to target for biopsy. MM/[place] [id number] IMPRESSION: BI-RADS: 0-Incomplete: Need additional imaging evaluation FOLLOW UP: Need Additional Imaging Recommend additional ultrasound of the 8 mm ovoid nodule LEFT breast near the 1 2:00 areola posterior nipple line.
== END 2021-12-13 13:06 | disposition home or self-care (01) ==
PROVIDERS: PCP Physician Assistant; Visit Provider Family Medicine
DX: N60.01 Solitary cyst of right breast (principal)
CPT/HCPCS: 76642; 77062

== ENCOUNTER 2021-12-16 13:10 | Outpatient (CLI) | payer MEDICARE, MEDICAID, SELFPAY ==
--- NOTE | 2021-12-16 12:45 | US_ITS ---
WS: [id number] THYROID ULTRASOUND HISTORY: thyroid nodule COMPARISON: None available. Right lobe: 1.2 cm x 1.6 cm x 4.7 cm (w x ap x l). Volume: 4.6 cm3. Thyroid is very heterogeneous and coarse. There is no increased vascularity. No definite nodules are identified. Left lobe: 1.5 cm x 1.6 cm x 4.9 cm (w x ap x l). Volume: 5.9 cm3. Coarse heterogeneous thyroid. Small exophytic nodule from the inferior lobe measures 9 x 6 x 6 mm Isotope: To the adjacent thyroid. This may be a thyroid lobule. No increased vascularity or echogenic foci. Isthmus: 0.1 cm. US/US thyroid [id number] IMPRESSION: 1. Very coarse heterogeneous thyroid. No dominant nodules. There are scattered echogenic foci but these are not contained within a nodule. 2. Although there is no dominant nodule for biopsy recommended the echogenic f oci can be seen in areas of neoplasm. Recommend 6-12 month ultrasound follow-up to document any change.
[2021-12-16 14:37] LABS: Free T4 Free Thyroxine 1.14 ng/dL (0.82-1.77); Thyroid Stimulating Hormone 2.41 uIU/mL (0.27-4.20)
== END 2021-12-16 13:11 | disposition home or self-care (01) ==
PROVIDERS: PCP Physician Assistant; Visit Provider Internal Medicine
DX: E04.1 Nontoxic single thyroid nodule (principal); E03.8 Other specified hypothyroidism; E06.3 Autoimmune thyroiditis
CPT/HCPCS: 36415; 76536; 84439; 84443; 99214

== ENCOUNTER 2021-12-16 16:18 | Outpatient (CLI) | payer MEDICARE, MEDICAID, SELFPAY ==
--- NOTE | 2021-12-16 16:45 | MR_ITS ---
WS: [id number] MRI CERVICAL SPINE NONCONTRAST TECHNIQUE: Sagittal T1, T2 and STIR imaging. Axial T2, gradient, and fiesta imaging. CLINICAL INFORMATION: pain COMPARISON: MRI August 05, 2021 FINDINGS: Straightening of the normal cervical lordosis. ACDF C5-C6 with interbody fusion graft. No high-grade central canal stenosis. Cord signal is normal. C2-C3: Normal. C3-C4: Disc osteophyte complex with endplate ridging eccentric to the LEFT. Moderate to severe LEFT b samuel foraminal narrowing with encroachment on the exiting C4 nerve root. Findings unchanged from previ ous. Slight contact of the cervical cord. Spinal canal is patent. C4-C5: Mild disc bulging with osteophytic ridging. Slight effacement of ventral thecal sac. Slight co ntact of the cervical cord. Mild central canal stenosis. Moderate LEFT and no significant RIGHT kaylen inal narrowing. Mild facet arthropathy. C5-C6: Postoperative changes ACDF. Spinal canal and foramen are patent. C6-C7: Mild facet arthropathy. Spinal canal and foramen are patent. C7-T1: Normal. Visualized brain stem structures: Normal. Prevertebral soft tissues: Normal. MR/MR cervical spin wo con* [id number] IMPRESSION: 1. Straightening of the normal cervical lordosis. Cord signal is normal. 2. Prior postoperative changes ACDF C5-C6 is unchanged and appears solid 3. Moderate to severe LEFT C3-C4 bony foraminal narrowing due to LEFT eccentri c disc osteophytic ridging. This is unchanged from previous. Recommend correlat ion for LEFT C4 nerve root symptoms. 4. Moderate LEFT C4-C5 bony foraminal narrowing unchanged. 5. Mild central canal stenosis C4-C5 with shallow broad base disc bulging is s table. 6. Overall no significant changes compared to previous.
--- NOTE | 2021-12-16 17:30 | MR_ITS ---
WS: [id number] MRI THORACIC SPINE WITHOUT CONTRAST TECHNIQUE: Sagittal T1, T2 and STIR imaging. Axial T2 imaging. Noncontrast imaging obtained. CLINICAL INFORMATION: pain COMPARISON: MRI and CT July 12, 2009 FINDINGS: Mild thoracic curve. Mild thoracic kyphosis. No acute compression. 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 Tiny syrinx within the thoracic cord extending from T4 through T10 with a maximum AP dimension of 1.7 mm. Syrinx is unchanged since 2009. Tiny RIGHT pericentral protrusion T3-T4 with slight effacement of ventral thecal sac. Mild RIGHT fora elena narrowing. LEFT foramen is patent. Butterfly vertebra T12 with a RIGHT pericentral disc osteophyte protrusion at T11-T12. This results i n moderate central canal stenosis and slight indentation and flattening of the thoracic cord. This is unchanged in appearance since 2009. Moderate RIGHT and mild LEFT bony foraminal narrowing T11-T12. Moderate facet arthropathy lower thoracic spine. Normal caliber thoracic aorta. Visualized adrenal glands are normal. MR/MR thoracic spin wo con* [id number] IMPRESSION: 1. 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 This impinges the RIGHT ventral thoracic cord with mild flattening and moderate central canal stenosis unchanged from previous. 2. Moderate RIGHT and mild LEFT T11-T12 bony foraminal narrowing. 3. Tiny shallow RIGHT pericentral protrusion T3-T4 with slight effacement of v entral thecal sac. 4. Stable syrinx in the thoracic cord described above with a maximum AP dimens ion 1.7 mm. Cord signal is otherwise normal.
== END 2021-12-16 16:19 | disposition home or self-care (01) ==
PROVIDERS: PCP Physician Assistant; Visit Provider Orthopaedic Surgery
DX: M54.2 Cervicalgia (principal); M51.24 Other intervertebral disc displacement, thoracic region; M48.02 Spinal stenosis, cervical region
CPT/HCPCS: 72141; 72146

== ENCOUNTER → 2021-12-21 15:13 | Outpatient (BNVA) | payer MEDICARE, MEDICAID, SELFPAY | PROVIDERS: PCP Physician Assistant; Visit Provider Orthopaedic Surgery | DX: M48.062 Spinal stenosis, lumbar region with neurogenic claudication (principal); M48.02 Spinal stenosis, cervical region; M48.04 Spinal stenosis, thoracic region; G83.4 Cauda equina syndrome | CPT/HCPCS: 99214 ==

== ENCOUNTER → 2021-12-28 13:37 | Outpatient (BNVA) | payer MEDICARE, MEDICAID, SELFPAY | PROVIDERS: PCP Family Medicine; Visit Provider Internal Medicine | DX: E03.8 Other specified hypothyroidism (principal); E06.3 Autoimmune thyroiditis; E04.1 Nontoxic single thyroid nodule; M81.0 Age-related osteoporosis without current pathological fracture; T07.XXXA Unspecified multiple injuries, initial encounter; F17.210 Nicotine dependence, cigarettes, uncomplicated; X58.XXXA Exposure to other specified factors, initial encounter | CPT/HCPCS: 99215 ==

== ENCOUNTER 2022-01-12 06:20 | Inpatient (IN) | payer MEDICARE, MEDICAID, SELFPAY ==
[2022-01-04 11:02] VITALS: BMI 26.6
--- NOTE | 2022-01-04 12:45 | ANES.PREANE2 ---
Pre-Anesthetic Assessment Height/Weight: Height 1.68 m Weight 74.843 kg Operation Date: 01/12/22 12:10 Proposed Procedures p Spinal Fusion T10-L1 [id number](Not Applicable) - Bernard Cartagena DO s Lumbar Spine Decompression L3/4 [id number]/15668/43877/72213/G83.4(Not Applicable) - Bernard Cartagena DO Familial anesthetic complications: PONV, delayed awakening Was Beta Davie taken within 24 hours: N/A Was Clonidine taken within 24 hours: N/A Social Tobacco and No alcohol Exam alert, oriented x 3 and regular rate & rhythm Airway Submandibular: within normal limits Cervical ROM: within normal limits Mallampati: Class II Dentition: full Hepatic Hepatitis (B) Metabolic Thyroid Disease [facility] [place] Lower Back Pain Anesthetic Plan ASA status: 3 Anesthesia: General Other: A.line, transfusion OK Medications/Allergies Home Medications Medication Instructions Recorded Confirmed Last Taken Type famotidine 20 mg tablet 20 mg PO .2 BID 04/02/20 01/04/22 01/04/22 History meloxicam 7.5 mg tablet 7.5 mg PO DAILY 07/12/21 01/04/22 12/27/21 History montelukast 10 mg tablet 10 mg PO DAILY PRN Allergic 07/12/21 01/04/22 12/27/21 History (Singulair) Symptoms thiamine HCl (vitamin B1) 100 mg 100 mg PO DAILY #30 tabs 08/03/21 01/04/22 01/03/22 20:00 Rx tablet thiamine HCl (vitamin B1) 100 mg 100 mg PO DAILY #60 tabs 08/03/21 12/22/21 Unknown Rx tablet naltrexone 50 mg tablet See Rx Instructions PO DAILY #90 08/13/21 01/04/22 01/04/22 Rx tabs [place] Back Brace #1 ea 11/05/21 12/28/21 Unknown Rx multivitamin 1 tab PO DAILY 11/16/21 01/04/22 01/04/22 History vitamin B complex (B 1 tab PO DAILY 11/16/21 12/28/21 Unknown History Complex-Vitamin B12) levothyroxine 25 mcg capsule 25 mcg PO DAILY #120 caps 12/16/21 01/04/22 01/04/22 Rx (Tirosint) venlafaxine 150 mg See Rx Instructions .Route 12/21/21 01/04/22 01/04/22 Rx capsule,extended release 24 hr .COMPLEX #90 caps Stool Softener (docusate renae) 100 mg PO DAILY 01/04/22 01/04/22 01/04/22 History cetirizine 10 mg tablet (Allergy 10 mg PO DAILY PRN Allergic 01/04/22 01/04/22 01/01/22 History Relief (cetirizine)) Symptoms lidocaine 5 % topical patch 3 patch topical DAILY PRN 01/04/22 01/04/22 01/04/22 History Breakthrough Pain, Mild Allergies Allergy/AdvReac Type Severity Reaction Status Date / Time codeine Allergy Severe Hives Verified 12/28/21 13:55 latex Allergy Severe blistering Verified 12/28/21 13:55 oxycodone [From OxyContin] Allergy Severe Blackout Verified 12/28/21 13:55 Penicillins Allergy Severe Throat Verified 12/28/21 13:55 closed erythromycin base Allergy Intermediate Rash, Verified 12/28/21 13:55 headache adhesive Allergy Unknown Verified 12/28/21 13:55 celecoxib [From Celebrex] Allergy Unknown Verified 12/28/21 13:55 egg Allergy inflammatio Verified 12/28/21 13:55 n gluten Allergy inflammatio Verified 12/28/21 13:55 n gabapentin AdvReac TICKET COLLECTOR OR USHER Verified 12/28/21 13:55 EFFECTS- BURNING NERVE PAIN pregabalin AdvReac TICKET COLLECTOR OR USHER EFFECTS Verified 12/28/21 13:55 tramadol AdvReac N/V Verified 12/28/21 13:55 [facility] Anesthesia Medical History Cauda equina compression Flank 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 Postlaminectomy syndrome of lumbosacral region Spondylolisthesis, lumbar region Tobacco abuse Surgical History H/O: hysterectomy (~1993) History of appendectomy (~1989) History of cholecystectomy (~1994) History of lumbar fusion (~05/10/11) S/P cervical spinal fusion (~06/15/06) Family History Mother Diabetes Hypertension CAD (coronary artery disease) Sister Hypertension Father Hypertension Social History Smoking and tobacco status: current every day smoker cigarettes Years cigarettes smoked: 30 Alcohol intake: never Lives independently: Yes Marital status: Current occupational status: unemployed and disabled History of recent travel: No Female Reproductive History Date of last menstrual period: 05/23/01 Spontaneous abortions: No Data Anesthesia Cardiac Studies: No Data to Display
[2022-01-12] VITALS (35 sets, daily range): BP systolic 96–146; BP diastolic 63–94; PULSE 60–98; RESP 10–20; TEMP 36.3–36.6; O2SAT 91–100; BMI 26.6
--- NOTE | 2022-01-12 | XR_ITS ---
WS: [id number] INTRAOPERATIVE TECHNIQUE: 4 Spot fluoroscopic images for intraoperative purposes. FLUOROSCOPY TIME: 38 seconds CLINICAL INFORMATION: T10 to L1 fusion with decompression at L3-L4 COMPARISON: None. FINDINGS: L4-L5 pedicle screw fixation. Localization marker projected over the L3-L4 interspace. Additional ped icle screw fixation T9-T12 with interconnecting rods. Hardware appears in good position. XR/XR thoracic spine 1V [id number] IMPRESSION: Images obtained for intraoperative purposes.
[2022-01-12] MEDS: sodium chloride 0.9% 1,000 ML 30 ML IV (07:14)
--- NOTE | 2022-01-12 07:28 | ANES.PAUD2 ---
Pre-Anesthetic Update Pre-Anesthetic Assessment: Date of Surgery/Procedure: 01/12/22 Preop Diagnosis: Stenosis Thoracic/Lumbar spine, Lumbar radiculopathy Proposed Procedure: Operation Date: 01/12/22 08:05 Proposed Procedures p Spinal Fusion T10-L1 [id number](Not Applicable) - Bernard Daniel Mitzi, DO s Lumbar Spine Decompression L3/4 22315/[id number]/67665/51063/G83.4(Not Applicable) - Bernard Daniel Mitzi, DO Any changes to Pre-Anesthetic Assessment?: No Last Intake: > 8hrs Vitals: Temperature 97.8 F 01/12/22 06:54 Temperature Source Temporal Artery S can 01/12/22 06:54 Pulse Rate 60 01/12/22 06:54 Respiratory Rate 18 01/12/22 06:54 Blood Pressure 119/74 01/12/22 06:54 Blood Pressure Ban n 89 01/12/22 06:54 Pulse Oximetry 98 01/12/22 06:54 Oxygen Delivery Me thod 01/12/22 07:06 Exam: Pre-Anes Outpt Exam: alert, oriented x 3, clear to auscultation bilaterally and regular rate & rhythm Other Pertinent Information: Other Pertinent Information: Patient states her R shoulder is broken and she is unable to be placed in superman positition. Will make surgeon and OR crew aware of positioning challenges. Informed patient that despite optimal positioning she may still have exacerbation of her shoulder pain after surgery. Patient also suffers PONV. Will give multiple antimetics. Cardiac Studies: No Data to Display
[2022-01-12] MEDS: scopolamine 1.5 Patch 1 PATCH TRANSDERMA (07:39)
--- NOTE | 2022-01-12 08:08 | P.HPUD_ITS ---
Surgery/Procedure H&P Update DATE OF PROCEDURE: January 12, 2022 DATE H&P PERFORMED: 12/21/21 PREOP DIAGNOSIS: Stenosis Thoracic/Lumbar spine, Lumbar radiculopathy PLANNED PROCEDURE: Operation Date: 01/12/22 08:05 Proposed Procedures p Spinal Fusion T10-L1 61560///(Not Applicable) - DO dre Magaña Lumbar Spine Decompression L3/4 04113/27608/44864/06138/G83.4(Not Applicable) - Bernard Cartagena DO
--- NOTE | 2022-01-12 08:08 | W.PM.OPSUD ---
Surgery/Procedure H&P Update DATE OF PROCEDURE: January 12, 2022 DATE H&P PERFORMED: 12/21/21 PREOP DIAGNOSIS: Stenosis Thoracic/Lumbar spine, Lumbar radiculopathy PLANNED PROCEDURE: Operation Date: 01/12/22 08:05 Proposed Procedures p Spinal Fusion T10-L1 89192///(Not Applicable) - DO dre Magaña Lumbar Spine Decompression L3/4 [id number]/85448/G83.4(Not Applicable) - Bernard Cartagena DO
[2022-01-12] MEDS: clindamycin 900 MG/50 ML PREMIX 100 MG IV (08:26)
--- NOTE | 2022-01-12 10:25 | PC.NURSE ---
Called and updated daughter of procedure progress. Stated pts VSS.
[2022-01-12] MEDS: vancomycin 1,000 MG SDV 1000 MG XX (10:45)
[2022-01-12] MEDS: heparin, porcine 1,000 unit/mL INJ 10 mL 10000 UNIT XX (10:45)
--- NOTE | 2022-01-12 11:30 | PC.NURSE ---
Called and updated daughter of procedure progress.
--- NOTE | 2022-01-12 12:47 | PM.OP ---
Operative Report Date of procedure: January 12, 2022 Pre-op diagnosis: Preop Diagnosis Stenosis Thoracic/Lumbar spine, Lumbar radiculopathy Post-op diagnosis: same Procedure done: 1. T10-L1 posterior spine fusion 2. T10-L1 instrumentation 3. T10/11 laminectomy with partial facetectomies 4. T11/12 laminectomy with partial facetectomies 5. L3/4 laminectomy with partial facetectomy 6. use of computer navigation/ stereotactic for spine 7. bone marrow aspirate right iliac crest 8. use of allograft 9. use of aurograft from same incision Patient was brought to the operative suite after undergoing anesthesia patient was placed in the prone position all areas impingement well-padded. Patient's right arm was down. Patient was then prepped and draped normal sterile fashion. Skin incision was made over the T10-L1 area initially. Periosteal dissection was made out to the transverse processes of [id number] and L1 bilaterally. Next attention was brought to placing the spinous process clamp this was placed at the tip of L1. And locked into position.This is where the fiducial was attached and then the C-arm was brought in and spun around the patient and the information from the C-arm was linked to the computer through the fiducial. In order to facilitate placing the pedicle screws. Next attention was brought to obtaining the bone marrow aspirate from the right iliac crest. Stab incision was made over the posterior aspect of the iliac crest. The Jamshidi needle from the [employer] was used. 20 cc of bone marrow aspirate was taken of the right iliac crest. Next attention was placing the pedicle screws. This was done under computer navigation. The gearshift was linked to navigation. Starting at L1 the pedicles identified and the gearshift was placed past then the pedicle feeler was used followed by placing the screw. This process was repeated at L1 bilaterally T12 bilaterally, T11 bilaterally and T10 all these were bilateral screws. After the screws were placed attention was then brought to performing the laminectomies. Laminectomy was done at the T11-T12 level. High-speed bur was used to take down the lamina of T11 and then curved curettes and Kerrison rongeurs used to perform the laminectomy. The medial aspect of the facet joint at T11-12 was taken down bilaterally. Ligamentum flavum was taken out from T11-T12. The T11 nerve was traced out the T11-12 foramen bilaterally the dura was found to be in good repair and the T12 nerve root was traced around the T12 pedicle. Next attention was brought up to the T10-11 level. The T10 lamina was taken out a high-speed bur the Kerrison rongeurs and curettes were used to take down the aspect of the T10-11 facet joint. In the T10 nerve root was traced out the T10-11 foramen and then the T11 nerve was traced around the T11 pedicle.There was found to be in good repair had significant bulking up of the dura and the dura was had a good pulse. Next attention was brought to placing the rods. Rods were placed from T10-L1 bilaterally and the caps were placed. And then the screw caps were torqued into position. Next bone was decorticated with a high-speed bur. The allograft and laminectomies were packed into the lateral gutters along with the ostial amp bone graft. All this was mixed with the bone marrow aspirate. Next attention was brought to performing the L3-4 laminectomy. A skin incision is made over the L3/4Above the previous fusion level. This is confirmed under c-arm guidance. A series of dilators are passed and the tubular retractor is docked on the L3 lamina. A bovie is used to clear the soft tissue off the lamina and the L 3/4 facet joint. A high speed james is then used to perform the laminectomy and take down the medial aspect of the L 3/4 facet joint. A kerrison rongeure was then used to take down the remaining lamina and smooth the edged of the laminectomy up to the point where the ligamentum flavum attaches. Attention was then brought to the medial aspect of the facet joint. The remaining medial aspect of the superior and inferior aspect of the facet joint were taken down with the kerrison from the pedicle of L3 to L4. The facet joint had significant hypertrophy. Attention was then brought to the Ligamentum Flavum. The ligament was taken down from the lamina of L3 to L4 and out medially to the remaining facet joint. The ligament was thick. The dura was then exposed. The dura was in good repair. The L3 nerve was then traced with a curette out the L3/4 foramen and found to be adequately decompressed. The L4 nerve was traced with a curette around the L4 pedicle. The lateral recess was opened with a kerrison helping to further decompress the L4 nerve. The tubular retractor was then tilted to the contralateral side. The bovie was used to take down the soft tissue on the spinous process. The high speed james was used to take down the spinous process and then the contralateral lamina of L3. The kerrison rongeur was used to take down the remaining lamina to the point where the ligamentum flavum attached and the ligamentum flavum was taken down from L3 to L4. The kerrison rongeur was then used to reach across and take down the medial aspect of the contralateral L3/4 facet joint.The currete was used to trace the contralateral L3 nerve out the L3/4 foramen to make sure it was decompressed adequatesly and the L4 was traced around the L4 pedicle. The lateral recess was opened further with the kerrison to ensure the L4 is adequately decompressed. Wounds is then irrigated copiously with saline and surgiflo is used to stop any bleeding. The tubular retractor is removed and the wound is closed with vicryl and monocryl suture. Glue is then used to protect the wound. A sterile dressing is then placed. Patient was then placed in the supine position and transferred to the PACU in stable condition.
[2022-01-12] MEDS: fentaNYL 50 mcg/mL INJ 2mL IVP ×2 (12:56→13:19)
--- NOTE | 2022-01-12 14:11 | PC.NURSE ---
1405 Arterial line removed with catheter in tact. \pressure held for 5 minutes with no active bleeding noted
[2022-01-12] MEDS: ketorolac 30 mg/mL INJ IVP ×2 (15:05→22:47)
[2022-01-12] MEDS: HYDROcodone-acetaminophen 5-325 mg Tablet PO ×2 (15:07→20:19)
[2022-01-12] MEDS: ondansetron 2 mg/ML SDV 2 mL 4 MG IVP ×2 (15:07→22:50)
[2022-01-12] MEDS: lactated ringers 1,000 ML 90 ML IV (15:19)
[2022-01-12] MEDS: ceFAZolin 2,000 MG in sodium chloride 0.9% (plus) 50 ML 100 MG IV (17:46)
[2022-01-12] MEDS: famotidine 20 mg Tablet PO (17:49)
[2022-01-12] MEDS: docusate sodium 100 mg Capsule PO (17:49)
--- NOTE | 2022-01-12 17:57 | ANE.PACU2 ---
Inpatient post-anesthesia follow up: Airway intact: Yes Vital signs: Temperature 97.8 F Pulse Rate 82 Respiratory Rate 18 Blood Pressure 110/67 Pulse Oximetry 97 Oxygen Delivery Me thod Room Air Oxygen Flow Rate 2 Fraction of Inspir ed Oxygen Hydration adequate: Yes Nausea and vomiting: No Pain level: 1 Mental status: Baseline
[2022-01-13] VITALS: BP 96/50; PULSE 57; RESP 22; TEMP 36.7; O2SAT 97
[2022-01-13] MEDS: ceFAZolin 2,000 MG in sodium chloride 0.9% (plus) 50 ML 100 MG IV ×2 (01:26→09:30)
[2022-01-13] MEDS: lactated ringers 1,000 ML 90 ML IV ×2 (02:17→21:09)
[2022-01-13 04:23] VITALS: BP 95/60; PULSE 65; RESP 18; TEMP 36.4; O2SAT 97
[2022-01-13 05:46] VITALS: BP 109/70
[2022-01-13] MEDS: HYDROcodone-acetaminophen 5-325 mg Tablet PO ×5 (05:47→23:21)
--- NOTE | 2022-01-13 07:58 | PM.PN ---
Subjective Subjective: POD 1 Patient resting comfortably with family present. States her back is painful but her leg pain has resolved. She states her eyesight has improved which I indicated was a bonus as the area that we decompressed does not have any correlation with that. She has some mild nausea which is being treated with Zofran. Vitals/I&O/Wt Last Vital Signs Temp 97.6 F 01/13/22 04:23 Pulse 65 01/13/22 04:23 Resp 18 01/13/22 04:23 BP 109/70 01/13/22 05:46 Pulse Ox 97 01/13/22 04:23 O2 Del Method 01/12/22 17:42 O2 Flow Rate 2 01/12/22 14:00 01/12/22 01/13/22 01/13/22 22:59 06:59 14:59 Intake Total 1550 / 2500 2237 / 4737 Output Total 520 / 1070 1075 / 2145 Balance 1030 / 1430 1162 / 2592 Weight last 48 hrs Weight 165 lb Physical Exam Narrative: Patient presents alert and oriented x3 with a good general appearance normal mood and affect. Normal coordination normal stability. Mild tenderness around the incisional site with the incision having slight bloody drainage. Hemovac drain intact. No signs of infection. Patient denies any fevers or chills. 5/5 motor strength both lower extremities with negative straight leg raise bilaterally. Calves are supple no medial thigh tenderness. Pulses are 2+ at the dorsalis pedis and posterior tibial region. Good capillary refill throughout normal sensation light touch both lower extremities. Urinary Catheter Management: Latex Free: Cath Placed During This Visit: yes Reason for Continuing Indwelling Catheter: Other Urinary Catheter Date of Insertion: 01/12/22 Urinary Catheter Time of Insertion: 09:00 A&P Assessment and plan (1) S/P spinal fusion: Have physical therapy evaluate and mobilize today. Discontinue Glynn catheter after her mobilization. We will keep the Hemovac drain until tomorrow. The dressings were reinforced to help with compression. Continue with Zofran for her nausea. Continue incentive spirometry for pulmonary toilet. Plan for discharge home tomorrow. Status: Acute Attestations Medical Necessity Statement*: Home tomorrow Coding Level of Care Code Acute Metal Hanging Helper for [facility] F[facility] Diagnoses S/P spinal fusion Z98.1
[2022-01-13 08:00] VITALS: BP 104/68; PULSE 59; RESP 18; TEMP 36.6; O2SAT 94
[2022-01-13 09:15] LABS: Hemoglobin 10.9 g/dL (11.5-15.3)
[2022-01-13] MEDS: famotidine 20 mg Tablet PO ×2 (09:31→18:26)
[2022-01-13] MEDS: venlafaxine ER (24HR) 150 mg Capsule PO (09:31)
[2022-01-13] MEDS: docusate sodium 100 mg Capsule PO ×3 (09:32→18:26)
[2022-01-13] MEDS: thiamine 100 mg Tablet PO (09:34)
[2022-01-13] MEDS: levothyroxine 25 mcg Tablet PO (09:34)
[2022-01-13] MEDS: multivitamin therapeutic Tablet 1 TAB PO (09:34)
[2022-01-13] MEDS: ketorolac 30 mg/mL INJ IVP ×2 (09:39→20:35)
[2022-01-13] MEDS: ondansetron 2 mg/ML SDV 2 mL 4 MG IVP ×2 (09:41→20:35)
--- NOTE | 2022-01-13 10:34 | PC.CHAP ---
Pastoral Care Encounter/Spiritual Assessment Type of Contact [] Declined smoking pipe coater visit [] Patient/Family/Request visit [] Outpatient visit [] Follow-up visit [] Physician referral [] Code/Alert [x] Routine visit [] Staff referral [] Actively dying [] Patient sleeping [] Family support [] [] Out of room [] Palliative care [] [x] Receiving care in room [] Pre-surgical visit [] Trauma [] Long length of stay [] ICU visit [] Other: Relational/Emotional Strength [x] Patient feels connected with others/family/visitors/staff [] Distress [] Loneliness/isolation [] Abandonment Spirituality of Patient [x] Person of Alejandra [] Attends Scientologist of their Alejandra [x] Believes in Prayer [] Reads Bible or Temple materials [] There are Spiritual issues to be addressed Molder Feeder Interventions [x] Prayer [x] Active listening [x] Non-anxious presence [x] Spiritual/emotional support [] Crisis/trauma care [x] Spiritual counseling [] Bereavement support [] Provided bereavement packet [] Provided Bible/devotional materials [] Provided toy/stuffed animal, coloring book to patient or family member [] Provided Communion [] Anointing/[place] [] Salvation [x] Completed spiritual assessment [] Other: Impact on Illness or Injury [] Angry [] Fearful [] Anxious [] Often cries [] Exhaustion [] Unable to work [] Unable to attend christianity [] Unable to walk/stand [] Unable to read [] Unable to drive [] Unable to eat/drink [] Unable to sleep [] Unable to be with family [] Patient intubated [] Other: Summary back surgery in some pain has good attidude going home soon +1 family Time spent with patient 10 mins
[2022-01-13] MEDS: promethazine 25 mg Tablet PO ×2 (13:28→23:21)
[2022-01-13 20:00] VITALS: BP 112/63; PULSE 70; RESP 13; TEMP 37.1; O2SAT 95
[2022-01-14] VITALS: BP 108/69; PULSE 60; RESP 14; TEMP 36.9; O2SAT 94
[2022-01-14] MEDS: lanolin oint 7 gm 1 APPLIC TOPICAL (01:57)
[2022-01-14 04:00] VITALS: BP 107/67; PULSE 67; RESP 15; TEMP 37.1; O2SAT 93
[2022-01-14] MEDS: HYDROcodone-acetaminophen 5-325 mg Tablet PO ×3 (05:57→14:04)
[2022-01-14] MEDS: promethazine 25 mg Tablet PO ×3 (05:57→14:04)
[2022-01-14] MEDS: magnesium hydroxide 30 mL UDC PO ×2 (06:09→09:16)
--- NOTE | 2022-01-14 06:43 | PM.PN ---
Subjective Subjective: POD 2 Patient resting comfortably. Reports ambulating to the restroom but has not moved her bowels. Denies any chest pain denies any shortness of breath. Vitals/I&O/Wt Last Vital Signs Temp 98.8 F 01/14/22 04:00 Pulse 67 01/14/22 04:00 Resp 15 01/14/22 04:00 BP 107/67 01/14/22 04:00 Pulse Ox 93 01/14/22 04:00 O2 Del Method 01/14/22 04:00 O2 Flow Rate 2 01/13/22 08:00 01/13/22 01/13/22 01/14/22 14:59 22:59 06:59 Intake Total 1660 / 1660 1010 / 2670 1060 / 3730 Output Total 1400 / 1400 125 / 1525 Balance 1660 / 1660 -390 / 1270 935 / 2205 Weight last 48 hrs Weight 165 lb Physical Exam Narrative: Patient presents alert and oriented x3 with a good general appearance normal mood and affect.? Normal coordination normal stability.? Mild tenderness around the incisional site with the incision having slight bloody drainage.? Hemovac drain intact. ? No signs of infection.? Patient denies any fevers or chills.? 5/5 motor strength both lower extremities with negative straight leg raise bilaterally.? Calves are supple no medial thigh tenderness.? Pulses are 2+ at the dorsalis pedis and posterior tibial region.? Good capillary refill throughout normal sensation light touch both lower extremities. Urinary Catheter Management: Latex Free: Cath Placed During This Visit: yes Reason for Continuing Indwelling Catheter: Other Urinary Catheter Date of Insertion: 01/12/22 Urinary Catheter Time of Insertion: 09:00 Data : 01/13/22 08:36 A&P Assessment and plan (1) S/P spinal fusion: We will discontinue the Hemovac drain continue to mobilize with physical therapy. We will set up home health care as she lives alone. Will discharge home with hydrocodone and Phenergan for nausea. We will see her back in the office in 1 week's time for wound check. She will call if she is having problems. We will move her bowels prior to discharge with laxative choice. Home with incentive spirometry for continued pulmonary toilet. Status: Acute Attestations Medical Necessity Statement*: Discharge home today with home health care Coding Level of Care Code Acute Data Quality Consultant for [facility] Fwd Diagnoses S/P spinal fusion Z98.1
[2022-01-14 07:40] VITALS: BP 108/61; PULSE 66; RESP 16; TEMP 36.8; O2SAT 91
[2022-01-14] MEDS: multivitamin therapeutic Tablet 1 TAB PO (09:11)
[2022-01-14] MEDS: thiamine 100 mg Tablet PO (09:12)
[2022-01-14] MEDS: famotidine 20 mg Tablet PO (09:13)
[2022-01-14] MEDS: docusate sodium 100 mg Capsule PO (09:13)
[2022-01-14] MEDS: venlafaxine ER (24HR) 150 mg Capsule PO (09:13)
[2022-01-14 12:00] VITALS: BP 112/65; PULSE 70; RESP 16; TEMP 36.7; O2SAT 91
--- NOTE | 2022-01-14 12:36 | PC.NURSE ---
Pt stated she has not had a BM or passing flatus post milk of mag and colace this morning. afraid to go home and get an impaction. offered her if we can try laxative such as miralax. she refused it and requested a prune juice.
--- NOTE | 2022-01-14 14:01 | PC.NURSE ---
notified Dr bob Wagner to let him know that pt has not had any BM's or pass any flatus per her statement. had voided but not bm. left a voicemail to him.
[2022-01-14 15:12] VITALS: BP 126/76; PULSE 78; RESP 16; TEMP 36.7; O2SAT 95
[2022-01-14] MEDS: ondansetron 2 mg/ML SDV 2 mL 4 MG IVP (15:39)
[2022-01-14 16:07] VITALS: BP 126/76; PULSE 78; RESP 16; TEMP 36.7; O2SAT 95
--- NOTE | 2022-01-14 16:08 | PC.NURSE ---
pt had moderate to lrg loose BM at 1400 pm.
--- NOTE | 2022-01-18 08:48 | PM.DCS ---
Discharge Providers Date of Admission: 01/12/22 06:20 Date of Discharge: January 14, 2022 Attending Provider at Admission: Bernard Cartagena DO Attending Provider at Discharge: Bernard Cartagena DO Primary Care Provider: Tesha Chance MD Diagnoses at Discharge Discharge Diagnosis (1) S/P spinal fusion: Status: Acute Reason for Visit Reason for Visit: T10-L1 PSF W/DECOMPRESSION L3/4 [id number] Hospital Course Hospital Course uneventful Physical Exam Urinary Catheter Management: Latex Free: Cath Placed During This Visit: yes Reason for Continuing Indwelling Catheter: Other Urinary Catheter Date of Insertion: 01/12/22 Urinary Catheter Time of Insertion: 09:00 Discharge Data Studies Completed and Pending Completed Studies During Hospitalization Category Date Time Status XR thoracic spine 1V [id number] Routine Exams 01/12/22 Completed Radiology Impressions Thoracic Spine X-Ray 01/12/22 00:00 IMPRESSION: Images obtained for intraoperative purposes. Laboratory Results Hgb 10.9 g/dL (11.5-15.3) L 01/13/22 08:36 Hct 35.0 % (37.0-47.0) L 01/13/22 08:36 Vitals Last Vital Signs Temp 98.0 F 01/14/22 16:07 Pulse 78 01/14/22 16:07 Resp 16 01/14/22 16:07 BP 126/76 01/14/22 16:07 Pulse Ox 95 01/14/22 16:07 O2 Del Method 01/14/22 15:12 O2 Flow Rate 2 01/13/22 08:00 Discharge Plan Discharge Patient Disposition: Home Health Service Condition: Stable Prescriptions: Continued famotidine 20 mg tablet 40 mg PO BID thiamine HCl (vitamin B1) 100 mg tablet 100 mg PO DAILY Qty: 30 2RF montelukast [Singulair] 10 mg tablet 10 mg PO DAILY PRN (Reason: Allergic Symptoms) multivitamin Tablet 1 tab PO DAILY (DME) [place] Back Brace See Rx Instructions .Route .MEDSUPPLY Qty: 1 0RF Rx Instructions: As directed cetirizine [Allergy Relief (cetirizine)] 10 mg tablet 10 mg PO DAILY PRN (Reason: Allergic Symptoms) lidocaine 5 % adhesive patch,medicated 3 patch topical DAILY PRN (Reason: Breakthrough Pain, Mild) Rx Instructions: leave on most painful area for up to 12 hrs Tirosint 25 mcg capsule See Rx Instructions .ROUTE .COMPLEX Rx Instructions: Take one capsule by mouth Monday thru Monday, and 2 capsules on Monday. (CAN ONLY HAVE TIROSINT) venlafaxine 150 mg capsule,extended release 24hr 150 mg PO QAM Vitamin B-12 1,000 mcg Tablet 1,000 mcg PO DAILY Stool Softener 100 mg Capsule 100 mg PO DAILY albuterol sulfate 90 mcg/actuation HFA aerosol inhaler 2 puff INHALATION Q4H PRN (Reason: Shortness Of Breath) Cmp Naltrexone Hcl 4.5mg-Lf Ca 1 tab PO BEDTIME Rx Instructions: MEDICATION ON HOLD PER PT Held meloxicam 7.5 mg tablet 7.5 mg PO DAILY Hold Instructions: Home Medication placed on hold at Doctor's office No Action hydrocodone-acetaminophen 5-325 mg tablet 1 - 2 tab PO Q4H PRN (Reason: Moderate To Severe Pain) 7 Days Qty: 40 0RF promethazine 25 mg tablet 25 mg PO Q6H PRN (Reason: Nausea) Qty: 20 0RF Discharge Orders: Discharge Order (Routine); Ordered 01/14/22 Ordered By: Marvin Torres Other Ambulatory Orders: DME: Walker (Order) Location: None Selected Ordered By: Bernard Cartagena Referrals: [facility] ([facility]) [Outside] Bernard Cartagena, [Physician] - 01/18/22 8:00 am Discharge Diet: Advance as tolerated Discharge Activity: Limit activity as instructed Patient Instructions: Hydrocodone/Acetaminophen (By mouth), Promethazine (By mouth) (Phenergan, Promacot), Lumbar Spinal Fusion (DC), Opioid Safety Activity Restrictions/Additional Instructions: Thank you for choosing [facility] for your care! The following is a list of instructions, from your provider, to follow upon your discharge to ensure you have the optimal recovery from your recent injury or surgery. Follow-up care is a fiore part of your treatment and safety. Be sure to make and go to all appointments and call your doctor if you are having problems. If you do not already have a follow-up appointment made, call Dr. Cartagena's] office in the next 1-3 days to make follow up appointment for thank you for choosing [facility] for your care! The following is a list of instructions, from your provider, to follow upon your discharge to ensure you have the optimal recovery from your recent injury or surgery. Follow-up care is a fiore part of your treatment and safety. Be sure to make and go to all appointments and call your doctor if you are having problems. If you do not already have a follow-up appointment made, call Dr. Cartagena's] office in the next 1-3 days to make follow up appointment for [1 weeks at [phone]. It is also a good idea to know your test results and keep a list of the medicines you take. Medications will be prescribed for you at your provider's discretion. These medications are to be used as instructed; if they are taken more often that prescribed they will not be refilled early and in most cases will not be refilled at all. > When a refill is needed, you should contact silverio pearson 2-3 business days before your prescription runs out. Medications will NOT be refilled by glass production machine operator providers after hours! > Many pain medications contain Tylenol (Acetaminophen). Do not consume more than 4,000 mg of Tylenol per day in total with any combination of medications. > Pain medications can cause constipation. Please use an over the counter stool softener as directed, while taking pain medications. Consult your local pharmacist with questions or recommendations on stool softeners. If constipation persists, contact our office or your primary care provider. > While under our care, you are not to receive pain medications or other controlled substances from any other provider unless our office is notified and approves. Any attempts to do so will result in refusal to prescribe any further pain medications and possible dismissal from our practice. ? Walking is essential for the healing process after surgery. We would like you to slowly advance your walking. This should be done on relatively flat clear ground (inside or out) or can be done on a treadmill. Remember this goal does not have to happen all at once, slowly increase your distance and duration. This can be broken into more more than one walk per day as tolerated. Patients who walk as directed after surgery rarely require Physical Therapy. In the unlikely event this issue arises your provider will direct hospital staff to make the appropriate arrangements. ? No lifting over 5 pounds {a gallon of milk) or bending/twisting until further notice. Each of these activities places an unnecessary amount of stress onto the body and can impede the delicate healing process. > Instead of bending at the waist, keep your back straight and bend at the knees. > Instead of twisting your torso, keep your back straight and turn your entire body with your feet. ? You may sleep in any position which makes you comfortable. Many patients find comfort sleeping in a reclining chair. It is not abnormal to have difficulty sleeping for the first several weeks following your surgery. We recommend trying Benadry! or Tylenol PM as directed to help with your sleeping difficulties. Both medications are over the counter and available without prescription. ? NO SMOKING!!! Smoking dramatically increases the probability of developing postoperative wound infections. ? Common complaints after lumbar and/or thoracic spine surgery include, but are not limited to: numbness and/or tingling in the legs, pain around the incision and surrounding tissues, muscle spasms, or stiffness of the middle to low back. Contact our office if these symptoms persist or if an acute change occurs. ? No driving for the first 3-5days, and not while taking narcotics until seen at your follow-up appointment and cleared. There are no restrictions for riding on short trips, however if you take a longer trip, arrangements should be made to make regular stops to get out of the vehicle and stretch . ? Swelling is an unfortunate event that will take place with any surgery and is the primary source of your postoperative discomfort. While walking and regular approved activities helps control inflammation, there are additional steps you can take to minimize swelling. > Place ice over the surgical site and surrounding tissue for twenty minutes, followed by applying a low/medium heat (heating pad) for an additional twenty minutes every 1-2 hours as needed for painrelief. > You may use of over the counter anti-inflammatory medications (Ibuprofen, Motrin, Aleve, Advil, etc) as directed on the package label. These types of medicines will significantly reduce the amount of discomfort you experience after surgery from swelling. It should be noted that if you have and allergy to any of these medications, or a history of ulcers or kidney disease you should consult you primary care provider prior to starting these medications. Weeks at [phone]. It is also a good idea to know your test results and keep a list of the medicines you take. Medications will be prescribed for you at your provider's discretion. These medications are to be used as instructed; if they are taken more often that prescribed they will not be refilled early and in most cases will not be refilled at all. > When a refill is needed, you should contact silverio pearson 2-3 business days before your prescription runs out. Medications will NOT be refilled by glass production machine operator providers after hours! > Many pain medications contain Tylenol (Acetaminophen). Do not consume more than 4,000 mg of Tylenol per day in total with any combination of medications. > Pain medications can cause constipation. Please use an over the counter stool softener as directed, while taking pain medications. Consult your local pharmacist with questions or recommendations on stool softeners. If constipation persists, contact our office or your primary care provider. > While under our care, you are not to receive pain medications or other controlled substances from any other provider unless our office is notified and approves. Any attempts to do so will result in refusal to prescribe any further pain medications and possible dismissal from our practice. ? Walking is essential for the healing process after surgery. We would like you to slowly advance your walking. This should be done on relatively flat clear ground (inside or out) or can be done on a treadmill. Remember this goal does not have to happen all at once, slowly increase your distance and duration. This can be broken into more more than one walk per day as tolerated. Patients who walk as directed after surgery rarely require Physical Therapy. In the unlikely event this issue arises your provider will direct hospital staff to make the appropriate arrangements. ? No lifting over 5 pounds {a gallon of milk) or bending/twisting until further notice. Each of these activities places an unnecessary amount of stress onto the body and can impede the delicate healing process. > Instead of bending at the waist, keep your back straight and bend at the knees. > Instead of twisting your torso, keep your back straight and turn your entire body with your feet. ? You may sleep in any position which makes you comfortable. Many patients find comfort sleeping in a reclining chair. It is not abnormal to have difficulty sleeping for the first several weeks following your surgery. We recommend trying Benadry! or Tylenol PM as directed to help with your sleeping difficulties. Both medications are over the counter and available without prescription. ? NO SMOKING!!! Smoking dramatically increases the probability of developing postoperative wound infections. ? Common complaints after lumbar and/or thoracic spine surgery include, but are not limited to: numbness and/or tingling in the legs, pain around the incision and surrounding tissues, muscle spasms, or stiffness of the middle to low back. Contact our office if these symptoms persist or if an acute change occurs. ? No driving for the first 3-5days, and not while taking narcotics until seen at your follow-up appointment and cleared. There are no restrictions for riding on short trips, however if you take a longer trip, arrangements should be made to make regular stops to get out of the vehicle and stretch . ? Swelling is an unfortunate event that will take place with any surgery and is the primary source of your postoperative discomfort. While walking and regular approved activities helps control inflammation, there are additional steps you can take to minimize swelling. > Place ice over the surgical site and surrounding tissue for twenty minutes, followed by applying a low/medium heat (heating pad) for an additional twenty minutes every 1-2 hours as needed for painrelief. > You may use of over the counter anti-inflammatory medications (Ibuprofen, Motrin, Aleve, Advil, etc) as directed on the package label. These types of medicines will significantly reduce the amount of discomfort you experience after surgery from swelling. It should be noted that if you have and allergy to any of these medications, or a history of ulcers or kidney disease you should consult you primary care provider prior to starting these medications. Discharge Attestations Time Spent in Discharge Care*: less than 30 min Quality Metrics Clinical Quality Measures [ No reported AMI, CVA or VTE this stay] Coding Level of Care Code Acute Chg FW DC note Diagnoses S/P spinal fusion Z98.1
== END 2022-01-14 16:09 | disposition home health service (06) | DRG 460 ==
LOC: OR 06:20 → MEDSURG 12:53
PROVIDERS: Physician Assistant; Admitting Provider Orthopaedic Surgery; PCP Family Medicine; Visit Provider Orthopaedic Surgery
PROC: 0RG7071 Fusion of 2 to 7 Thoracic Vertebral Joints with Autologous Tissue Substitute, Posterior Approach, Posterior Column, Open Approach (ICD-10-PCS; principal; 2022-01-12 07:55)
PROC: 0RG7071 Fusion of 2 to 7 Thoracic Vertebral Joints with Autologous Tissue Substitute, Posterior Approach, Posterior Column, Open Approach (ICD-10-PCS; CPT 63005; 2022-01-12 07:55)
DX: M48.04 Spinal stenosis, thoracic region (principal); G95.89 Other specified diseases of spinal cord; Z88.5 Allergy status to narcotic agent; Z91.040 Latex allergy status; Z98.1 Arthrodesis status; M96.1 Postlaminectomy syndrome, not elsewhere classified; M48.061 Spinal stenosis, lumbar region without neurogenic claudication
CPT/HCPCS: 36415; 51702; 72020; 85014; 85018; 97116; 97161; 97167; 97530; 97535; A9281; C1713; J1100; J1170; J1200; J1644; J1885; J2405; J2704; J2765; J3010; J3370; J3490; J3535; J7030; P9041; Q0169

== ENCOUNTER → 2022-01-18 08:08 | Outpatient (BNVA) | payer MEDICARE, MEDICAID, SELFPAY | PROVIDERS: PCP Family Medicine; Visit Provider Orthopaedic Surgery | DX: Z47.89 Encounter for other orthopedic aftercare (principal); Z98.1 Arthrodesis status | CPT/HCPCS: 99024 ==

== ENCOUNTER → 2022-01-25 14:30 | Outpatient (BNVA) | payer MEDICARE, MEDICAID, SELFPAY | PROVIDERS: PCP Family Medicine; Visit Provider Orthopaedic Surgery | DX: Z47.89 Encounter for other orthopedic aftercare (principal); Z98.1 Arthrodesis status; N39.0 Urinary tract infection, site not specified; R32 Unspecified urinary incontinence | CPT/HCPCS: 72100; 81001; 87077; 87086; 87186; 99024 ==

== ENCOUNTER → 2022-02-08 14:59 | Outpatient (BNVA) | payer MEDICARE, MEDICAID, SELFPAY | PROVIDERS: PCP Family Medicine; Visit Provider Orthopaedic Surgery | DX: Z47.89 Encounter for other orthopedic aftercare (principal); Z98.1 Arthrodesis status | CPT/HCPCS: 72070; 72100; 99024 ==

== ENCOUNTER → 2022-03-07 16:25 | Outpatient (BNVA) | payer MEDICARE, MEDICAID, SELFPAY | PROVIDERS: PCP Family Medicine; Visit Provider Family Medicine | DX: G47.00 Insomnia, unspecified (principal); F51.02 Adjustment insomnia; R10.9 Unspecified abdominal pain; Z98.1 Arthrodesis status; G44.89 Other headache syndrome; G89.29 Other chronic pain; N39.0 Urinary tract infection, site not specified | CPT/HCPCS: 81000 ==

== ENCOUNTER → 2022-03-10 11:34 | Outpatient (BNVA) | payer MEDICARE, MEDICAID, SELFPAY | PROVIDERS: PCP Family Medicine; Visit Provider Orthopaedic Surgery | DX: Z47.89 Encounter for other orthopedic aftercare (principal); Z98.1 Arthrodesis status | CPT/HCPCS: 72100; 99024 ==

== ENCOUNTER → 2022-03-14 14:29 | Outpatient (BNVA) | payer MEDICARE, MEDICAID, SELFPAY | PROVIDERS: PCP Family Medicine; Visit Provider Podiatrist Foot & Ankle Surgery | DX: M24.571 Contracture, right ankle (principal); S92.352G Displaced fracture of fifth metatarsal bone, left foot, subsequent encounter for fracture with delayed healing; X58.XXXD Exposure to other specified factors, subsequent encounter; M72.2 Plantar fascial fibromatosis | CPT/HCPCS: 20550; 73630; 99204 ==

== ENCOUNTER 2022-03-29 14:44 | Outpatient (CLI) | payer MEDICARE, MEDICAID, SELFPAY | END 2022-03-29 14:45 | disposition home or self-care (01) | LOC: SPT 14:45 | PROVIDERS: PCP Family Medicine; Visit Provider Podiatrist Foot & Ankle Surgery | DX: Z46.89 Encounter for fitting and adjustment of other specified devices (principal); M72.2 Plantar fascial fibromatosis; M24.571 Contracture, right ankle; S92.352G Displaced fracture of fifth metatarsal bone, left foot, subsequent encounter for fracture with delayed healing; X58.XXXD Exposure to other specified factors, subsequent encounter | CPT/HCPCS: 97760; 99214; L4397 ==

== ENCOUNTER 2022-04-07 06:54 | Day surgery (SDC) | payer MEDICARE, MEDICAID, SELFPAY ==
[2022-04-06 15:52] VITALS: BMI 27.1
[2022-04-07] VITALS (7 sets, daily range): BP systolic 104–132; BP diastolic 73–89; PULSE 63–80; RESP 18–20; TEMP 36.2–36.6; O2SAT 97–99
[2022-04-07] MEDS: sodium chloride 0.9% 1,000 ML 30 ML IV (07:38)
[2022-04-07] MEDS: acetaminophen 1,000 MG/100 ML PIGGYBACK 400 MG IV (07:38)
--- NOTE | 2022-04-07 07:41 | P.ANESASSM_ITS ---
Pre-Anesthetic Assessment Height/Weight: Height 1.68 m Weight 76.204 kg Temp Pulse Resp BP Pulse Ox O2 Del Method 97.2 F L 80 18 104/77 98 04/07/22 07:17 04/07/22 07:17 04/07/22 07:17 04/07/22 07:17 04/07/22 07:17 04/07/22 07:19 Preop Diagnosis: Right foot chronic plantar fasciitis Operation Date: 04/07/22 08:30 Proposed Procedures p Right foot endoscopic plantar fasciotomy CPT 71648,M72.2(Right) - Ashutosh Mullins DPM Familial anesthetic complications: PONV w/ hx aspiration immediately after extubation Was Beta Davie taken within 24 hours: N/A Was Clonidine taken within 24 hours: N/A Last intake: Intake Last Liquid Date 04/06/22 Last Liquid Time 20:00 Last Solid Date 04/06/22 Last Solid Time 20:00 Social Tobacco and No alcohol Exam alert, oriented x 3, clear to auscultation bilaterally and regular rate & rhythm Airway Mallampati: Class II Dentition: full Metabolic Thyroid Disease Musc/skel Lower Back Pain and Osteoarthritis/DJD Anesthetic Plan ASA status: 2 Anesthesia: MAC Risk of > 500 ml blood loss (7ml/kg in children): No Medications/Allergies Home Medications Medication Instructions Recorded Confirmed Last Taken Type famotidine 20 mg tablet 40 mg PO BID 04/02/20 04/07/22 04/06/22 History montelukast 10 mg tablet 10 mg PO DAILY PRN Allergic 07/12/21 04/06/22 12/27/21 History (Singulair) Symptoms thiamine HCl (vitamin B1) 100 mg 100 mg PO DAILY #30 tabs 08/03/21 04/07/22 04/06/22 Rx tablet [place] Back Brace #1 ea 11/05/21 03/29/22 Unknown Rx multivitamin 1 tab PO DAILY 11/16/21 04/07/22 04/06/22 History cetirizine 10 mg tablet (Allergy 10 mg PO DAILY PRN Allergic 01/04/22 04/06/22 Unknown History Relief (cetirizine)) Symptoms lidocaine 5 % topical patch 3 patch topical DAILY PRN 01/04/22 04/07/22 04/06/22 History Breakthrough Pain, Mild Cmp Naltrexone Hcl 4.5mg-Lf Ca 1 tab PO BEDTIME 01/13/22 04/06/22 Unknown H istory albuterol sulfate 90 mcg/actuation 2 puff inhalation Q4H PRN 01/13/22 04/06/22 Unknown History aerosol inhaler Shortness Of Breath cyanocobalamin (vitamin B-12) 1,000 mcg PO DAILY 01/13/22 04/07/22 04/06/22 History 1,000 mcg tablet (Vitamin B-12) docusate sodium 100 mg capsule 100 mg PO DAILY 01/13/22 04/07/22 04/06/22 History (Stool Softener) levothyroxine 25 mcg capsule See Rx Instructions .Route .COMPLEX 01/13/22 04/07/22 04/06/22 History (Tirosint) venlafaxine 150 mg 150 mg PO QAM 01/13/22 04/07/22 04/06/22 History capsule,extended release 24 hr promethazine 25 mg tablet 25 mg PO Q6H PRN Nausea #20 tabs 01/18/22 04/07/22 04/06/22 Rx phenazopyridine 100 mg tablet 100 mg PO TID PRN pain 6 doses #6 01/26/22 04/07/22 04/06/22 Rx (Pyridium) tabs quad cane #1 ea 01/27/22 03/29/22 Unknown Rx hydrocodone 5 mg-acetaminophen 325 1 tab PO Q6H PRN post-op pain 5 03/11/22 04/07/22 Unknown Rx mg tablet days #40 tabs trazodone 50 mg tablet 25 mg PO .at bedtime #30 tabs 03/17/22 04/07/22 04/06/22 Rx meloxicam 15 mg tablet 15 mg PO DAILY #30 tabs 03/29/22 04/07/22 04/06/22 Rx night splint #1 ea 03/29/22 03/29/22 Unknown Rx calcium 500 mg tablet 500 mg PO DAILY 04/06/22 04/07/22 04/06/22 History Allergies Allergy/AdvReac Type Severity Reaction Status Date / Time codeine Allergy Severe Hives Verified 04/06/22 15:46 latex Allergy Severe blistering Verified 04/06/22 15:46 oxycodone [From OxyContin] Allergy Severe Blackout Verified 04/06/22 15:46 Penicillins Allergy Severe Throat Verified 04/06/22 15:46 closed erythromycin base Allergy Intermediate Rash, Verified 04/06/22 15:46 headache adhesive Allergy Unknown Verified 04/06/22 15:46 celecoxib [From Celebrex] Allergy Unknown Verified 04/06/22 15:46 clindamycin Allergy ADR-Vomitin Verified 04/06/22 15:46 g egg Allergy inflammatio Verified 04/06/22 15:46 n gluten Allergy inflammatio Verified 04/06/22 15:46 n red dye Allergy ADR-Vomitin Verified 04/06/22 15:47 g gabapentin AdvReac GROUND OPERATIONS SUPERINTENDENT Verified 04/06/22 15:46 EFFECTS- BURNING NERVE PAIN pregabalin AdvReac GROUND OPERATIONS SUPERINTENDENT EFFECTS Verified 03/29/22 10:55 tramadol AdvReac N/V Verified 03/29/22 10:55 Current Medications Generic Name Dose Route Start Last Admin Trade Name Freq PRN Reason Stop Dose Admin Sodium Chloride 1,000 mls @ 30 mls/hr 04/07/22 07:15 04/07/22 07:38 Sodium Chloride 0.9% IV 04/08/22 07:14 30 mls/hr .Q24H LISANDRO Administration PFSH Anesthesia Medical History Cauda equina compression Flank 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 Postlaminectomy syndrome of lumbosacral region Spondylolisthesis, lumbar region Tobacco abuse Surgical History H/O: hysterectomy (~1993) History of appendectomy (~1989) History of cholecystectomy (~1994) History of lumbar fusion (~05/10/11) S/P cervical spinal fusion (~06/15/06) Family History Mother Diabetes Hypertension CAD (coronary artery disease) Sister Hypertension Father Hypertension Social History Smoking and tobacco status: current every day smoker cigarettes Years cigarettes smoked: 30 Alcohol intake: never Lives independently: Yes Marital status: Current occupational status: unemployed and disabled History of recent travel: No Female Reproductive History Date of last menstrual period: 05/23/01 Spontaneous abortions: No Data Anesthesia Cardiac Studies: No Data to Display
[2022-04-07] MEDS: scopolamine 1.5 Patch 1 PATCH TRANSDERMA (07:47)
--- NOTE | 2022-04-07 08:56 | W.PM.OPSUD ---
Surgery/Procedure H&P Update DATE OF PROCEDURE: April 07, 2022 DATE H&P PERFORMED: 03/29/22 CHANGES TO PREVIOUS DOCUMENTATION: No changes to previous documentation PREOP DIAGNOSIS: Right foot chronic plantar fasciitis PRIMARY INDICATION FOR PROCEDURE: Right foot chronic plantar fasciitis PLANNED PROCEDURE: Operation Date: 04/07/22 08:30 Proposed Procedures p Right foot endoscopic plantar fasciotomy CPT 64568,M72.2(Right) - Ashutosh Mullins DPM
--- NOTE | 2022-04-07 09:14 | PC.NURSE ---
informed dr. alicea of patient allergy to clindomycin. Dr. Alicea said no antibiotic should be needed.
--- NOTE | 2022-04-07 11:49 | P.OP_ITS ---
Operative Report Date of procedure: April 07, 2022 Pre-op diagnosis: Preop Diagnosis Right foot chronic plantar fasciitis Post-op diagnosis: Same Post-op findings: Thickened medial band of plantar fascial right foot Procedure done: Right foot endoscopic plantar fasciotomy CPT 18904 Implants: None Specimens removed/disposition: None Pathology: None Surgeon: Dr. Ashutosh Mullins D.P.M. Estimated blood loss: 2 cc 13 minutes Complications: None Findings: See above Brief History: Patient has longstanding right foot plantar fasciitis that has not responded to conservative treatment. Procedure: Patient is a 51-year-old female that has a history of chronic right foot plantar fasciitis. The patient has had the aforementioned chief complaint for some time. Conservative treatment measures have been attempted and the patient has opted for surgical intervention at thistime. A lengthy discussion regarding the procedure, including risks and complications has been had with the patient and is noted in the recent clinic note. Written and verbal consent have been obtained. All patient questions have been answered to the patient?s satisfaction. No written or verbal guarantees have been given or implied. The patient has been NPO since midnight. The history has been reviewed and the history and physical is current. The signed consent was confirmed and placed in the patient chart. Patient imaging has been reviewed and is consistent with thediagnosis. Under mild sedation, the patient was brought into the operating room and placed on the table in the supine position. IV antibiotics were given by the anesthesia team as preoperative surgical prophylaxis. IV sedation was then performed by the anesthesiateam. Local anesthetic was then used to anesthetize the operative area using 15 cc of 0.5% Marcaine plain. A pneumatic tourniquet was then placed about the right ankle. The operative extremity was then prepped and draped in the usual fashion. The extremity was then elevated and exsanguinated before the tourniquet was inflated to 250 mmHg. After inflation, the following procedure was then performed. Attention was directed to the right foot where a stab incision was made to the medial aspect of the heel just distal to the medial tubercle of the calcaneus over the plantar fashion. Blunt dissection was carried down to the level of the plantar fascial. The plantar fascia could be palpated and this dissection was carried out on the inferior aspect of the fascia. Next a [place] elevator was used to free up the plantar tissue plantar to the plantar fascia. A trocar cannula was then inserted into this medial incision through and through the foot to tent the lateral aspect of the foot on the inferior aspect of the fascia. A #15 blade was then used to make a second stab incision on the lateral aspect of the foot before the trocar and cannula were passed through this lateral portal. The trocar was removed and multiple contact applicators were passed through the cannula. Next, the 4.0 arthroscope was inserted from the lateral portal and the plantar fascia was clearly visualized. A triangle blade was inserted into the medial portal and was used to pond the junction of the plantar fascia and between the medial and central bands. Next a hook blade was used to complete the resection of the medial band of the plantar fascia. This was visualized clearly via arthroscopy. Good release of the plantar fascia was visualized. The cannula was then irrigated with copious amounts of sterile saline before the trocar was inserted into the cannula and the trocar and cannula were removed from the foot together. Tenotomy scissors were used to palpate the medial portal for any remaining fibers of the plantar fascial. There was noted to be a small medial band fiber that was persistent. This was transected with the tenotomy scissors. The incision sites were then sutured using 4-0 nylon in horizontal mattress fashion. The tourniquet was let down good hyperemic response was noted to all digits of the right foot. 10 cc of 0.5% Marcaine plain was then injected in and around the operative area. The incisions were dressed with Xeroform 4 x 4 gauze Kerlix and Spike bandage. The patient tolerated the procedure and anesthesia well and without complication. The patient was transported from the operating room to the recovery room with vital signs stable and vascular status intact to all digits of the right foot. The patient was given both written and verbal instructions to remain weightbearing as tolerated to the operative extremity, to keep dressings/splint clean, dry and intact and to take pain medication as directed. The patient will follow-up in the outpatient setting at their scheduled appointment. The patient was discharged with my personal number and was instructed to call if any questions or issues should arise. They were discharged home once anesthesia criteria was met.
--- NOTE | 2022-04-07 13:37 | ANE.PACU2 ---
Inpatient post-anesthesia follow up: Airway intact: Yes Vital signs: Temperature 98 F Pulse Rate 63 Respiratory Rate 18 Blood Pressure 131/75 Pulse Oximetry 99 Oxygen Delivery Me thod Room Air Oxygen Flow Rate 6 Fraction of Inspir ed Oxygen Hydration adequate: Yes Nausea and vomiting: No Pain level: 1 Mental status: Baseline
== END 2022-04-07 10:53 | disposition home or self-care (01) ==
PROVIDERS: PCP Family Medicine; Visit Provider Podiatrist Foot & Ankle Surgery
PROC: (CPT 29893; principal; 2022-04-07 08:20)
DX: M72.2 Plantar fascial fibromatosis (principal); M19.90 Unspecified osteoarthritis, unspecified site; E06.3 Autoimmune thyroiditis; F17.210 Nicotine dependence, cigarettes, uncomplicated; Z98.1 Arthrodesis status
CPT/HCPCS: 29893; J0131; J2250; J2704; J3010; J3490; J7030

== ENCOUNTER → 2022-04-14 11:07 | Outpatient (BNVA) | payer MEDICARE, MEDICAID, SELFPAY | PROVIDERS: PCP Family Medicine; Visit Provider Orthopaedic Surgery | DX: Z98.1 Arthrodesis status (principal); Z47.89 Encounter for other orthopedic aftercare | CPT/HCPCS: 72100; 99024 ==

== ENCOUNTER → 2022-04-18 11:18 | Outpatient (BNVA) | payer MEDICARE, MEDICAID, SELFPAY | PROVIDERS: PCP Family Medicine; Visit Provider Podiatrist Foot & Ankle Surgery | DX: Z98.890 Other specified postprocedural states (principal); X58.XXXD Exposure to other specified factors, subsequent encounter; S92.351G Displaced fracture of fifth metatarsal bone, right foot, subsequent encounter for fracture with delayed healing | CPT/HCPCS: 73630; 99024 ==

== ENCOUNTER 2022-05-12 13:30 | Outpatient (CLI) | payer MEDICARE, MEDICAID, SELFPAY ==
--- NOTE | 2022-05-12 13:35 | XR_ITS ---
WS: [id number] DEXA (DUAL ENERGY X-RAY ABSORPTIOMETRY) Bone mineral density was performed using a [employer] machine. HISTORY: Osteoporosis COMPARISON: None available. Left forearm BMD: 0.807 g/cm2. T score: -0.8 Z score: -0.6 Total hip BMD: Left: 0.674 g/cm2. T score: -2.6 Z score: -2.3 Right: 0.610 g/cm2. T score: -3.2 Z score: -2.8 10 year probability of a major osteoporotic fracture is 41.9%. XR/XR DEXA axial skeleton* 57273 IMPRESSION: OSTEOPOROSIS based upon the WHO classification for females. Patient is at signi ficant increased risk for fracture.
[2022-05-12 14:47] LABS: Basophils # 0.1 10^3/uL (0.0-0.1); Eosinophils # 0.1 10^3/uL (0.0-0.8); Eosinophils % 2.1 %; Hematocrit 44.5 % (37.0-47.0); Hemoglobin 14.7 g/dL (11.5-15.3); Lymphocytes # 2.2 10^3/uL (0.8-4.8); Lymphocytes % 32.7 %; Mean Corpuscular Hemoglobin 28.9 pg (28.0-34.0); Mean Corpuscular Volume 87.6 fl (81-99); Mean Platelet Volume 11.2 fL (7.4-10.4); Monocytes # 0.4 10^3/uL (0.2-0.9); Monocytes % 5.3 %; Neutrophils % 58.8 %; Nucleated Red Blood Cells % 0 %; Platelet Count 452 10^3/cmm (130-400); Red Blood Count 5.08 10^6/uL (4.1-5.3); Red Cell Distribution Width 12.7 % (12.1-15.1); White Blood Count 6.8 10^3/uL (4.0-10.0)
[2022-05-12 15:12] LABS: Erythrocyte Sedimentation Rate 10 mm/hr (0-15)
[2022-05-12 15:24] LABS: Alanine Aminotransferase 9 U/L (0-33); Albumin Level 4.1 g/dL (3.5-5.2); Alkaline Phosphatase 126 U/L (35-105); Anion Gap 12.7 (5-19); Aspartate Amino Transferase 13 U/L (0-32); Blood Urea Nitrogen 12 mg/dL (6-20); Calcium 9.1 mg/dL (8.5-10.5); Carbon Dioxide 27 mmol/L (22-29); Chloride 103 mmol/L (98-107); Free T4 Free Thyroxine 1.15 ng/dL (0.82-1.77); Globulin 2.8 g/dL (1.3-4.6); Glomerular Filtration Rate 87.9 mL/min (90-130); Glucose 91 mg/dL (65-115); Osmolality Calculated 287 mOsm/kg (285-295); Potassium 3.7 mmol/L (3.5-5.1); Sodium 139 mmol/L (136-145); Thyroid Stimulating Hormone 1.51 uIU/mL (0.27-4.20); Total Bilirubin 0.3 mg/dL (0.15-1.2); Total Protein 6.9 g/dL (6.6-8.7)
== END 2022-05-12 13:31 | disposition home or self-care (01) ==
PROVIDERS: Internal Medicine; PCP Family Medicine; Visit Provider Internal Medicine
DX: Z98.890 Other specified postprocedural states (principal); M72.2 Plantar fascial fibromatosis; M81.0 Age-related osteoporosis without current pathological fracture; E06.3 Autoimmune thyroiditis; M25.50 Pain in unspecified joint; R70.0 Elevated erythrocyte sedimentation rate; E04.1 Nontoxic single thyroid nodule
CPT/HCPCS: 36415; 77080; 80053; 84439; 84443; 85025; 85651; 86140; 99024

== ENCOUNTER 2022-05-16 10:31 | Outpatient (CLI) | payer MEDICARE, MEDICAID, SELFPAY ==
--- NOTE | 2022-05-16 10:15 | US_ITS ---
WS: [id number] THYROID ULTRASOUND HISTORY: thyroid nodule COMPARISON: 12/16/2021 Right lobe: 1.6 cm x 1.2 cm x 4.9 cm (w x ap x l). Volume: 5.1 cm3. Gland. Diffuse small echogenic foci throughout the gland. There is a small hypoechoic nodule in the m id gland with a central component being isoechoic to the thyroid. This nodule measures 5 x 4 x 5 mm. Left lobe: 1.2 cm x 1.3 cm x 4.7 cm (w x ap x l). Volume: 3.9 cm3. Normal size gland. Small echogenic foci. No mass or nodule. No increased vascularity. Benign cervical lymph nodes. Isthmus: 0.2 cm. US/US thyroid [id number] IMPRESSION: 1. Continued bilateral numerous echogenic foci throughout the gland not contai julissa within a nodule. The gland is not enlarged and there is no dominant suspici ous nodule. 2. No adenopathy.
== END 2022-05-16 10:32 | disposition home or self-care (01) ==
LOC: RAD 10:34
PROVIDERS: PCP Family Medicine; Visit Provider Internal Medicine
DX: E04.1 Nontoxic single thyroid nodule (principal)
CPT/HCPCS: 76536

== ENCOUNTER → 2022-06-27 15:31 | Outpatient (BNVA) | payer MEDICARE, MEDICAID, SELFPAY | PROVIDERS: PCP Family Medicine; Visit Provider Internal Medicine | DX: M25.50 Pain in unspecified joint (principal) | CPT/HCPCS: 99213 ==

== ENCOUNTER → 2022-07-14 15:51 | Outpatient (BNVA) | payer MEDICARE, MEDICAID, SELFPAY | PROVIDERS: PCP Family Medicine; Visit Provider Orthopaedic Surgery | DX: M54.50 Low back pain, unspecified (principal); Z98.1 Arthrodesis status | CPT/HCPCS: 72100; 99214 ==

== ENCOUNTER 2022-07-19 14:32 | Outpatient (CLI) | payer MEDICARE, MEDICAID, SELFPAY ==
--- NOTE | 2022-07-19 14:30 | MR_ITS ---
WS: [id number] MRI LUMBAR SPINE NONCONTRAST TECHNIQUE: Sagittal T1, T2 and STIR imaging. Axial T1 and T2 imaging. CLINICAL INFORMATION: pain COMPARISON: MRI December 10, 2021 FINDINGS: For continuity previous numbering pattern is utilized for the study. L5 is partially sacral ized. Mild lumbar curve. No acute compression. Pedicle screw fixation L4-L5 laminectomy defects. Pedicle sc rew fixation in the lower thoracic spine at T9-T12 is new from previous. L1-L2: Mild facet arthropathy. Spinal canal and foramen are patent. L2-L3: Mild annular bulging. Mild facet arthropathy. Tiny LEFT foraminal protrusion with mild LEFT fo raminal narrowing. RIGHT foramen is patent. Moderate facet arthropathy. L3-L4: Shallow central disc protrusion. This appears slightly progressed compared to previous with mo derate central canal stenosis and impingement traversing L4 nerve roots. RIGHT hemilaminectomy is new from previous. Central canal stenosis at this level is slightly improved with laminectomy but protr usion appears slightly progressed. Mild RIGHT and no LEFT foraminal narrowing. L4-L5: Postoperative changes laminectomy defects. Spinal canal is patent. Foramen are patent. L5-S1: L5 is sacralized. Spinal canal and foramen are patent. Moderate facet arthropathy. Small LEFT renal cyst. MR/MR lumbar spine wo con* [id number] IMPRESSION: 1. Moderate central canal stenosis L3-L4 with slightly progressed central prot rusion and impingement traversing LEFT greater than RIGHT L4 nerve roots. Inter rosy laminectomy. Central canal stenosis is slightly improved but protrusion masoud ears slightly more prominent today. 2. Mild RIGHT L3-L4 foraminal narrowing with slight impingement on the exiting RIGHT L3 nerve root.This appears progressed. 3. Small LEFT foraminal protrusion L2-L3 with mild LEFT foraminal narrowing. T his appears progressed. Contact of the exiting LEFT L2 nerve root. 4. Laminectomy defects L4-L5. Spinal canal is patent. 5. Pedicle screw fixation T9-T12 new from previous.
== END 2022-07-19 14:33 | disposition home or self-care (01) ==
PROVIDERS: PCP Family Medicine; Visit Provider Orthopaedic Surgery
DX: Z98.1 Arthrodesis status (principal); M48.061 Spinal stenosis, lumbar region without neurogenic claudication; M51.26 Other intervertebral disc displacement, lumbar region; M96.1 Postlaminectomy syndrome, not elsewhere classified
CPT/HCPCS: 72148

== ENCOUNTER 2022-07-26 14:42 | Outpatient (CLI) | payer MEDICARE, MEDICAID, SELFPAY ==
[2022-07-26 15:22] LABS: Add Urine Microscopic? NO; Charge for UA Resulting for Rev
[2022-07-26 15:32] LABS: Bilirubin Urine Neg (Negative); Blood Urine Neg (Negative); Glucose Urine UA Norm (Normal); Ketones Urine Negative (Negative); Leukocyte Esterase Urine Negative (Negative); Nitrate Urine Negative (Negative); Protein Urine Neg (Negative); Urine Appearance Clear (CLEAR); Urine Color Yellow (Yellow); Urobilinogen Urine Norm (Negative); pH Urine 6 (5-7)
[2022-07-26 15:49] LABS: Magnesium 2.1 mg/dL (1.7-2.3)
[2022-07-26 16:05] LABS: 25 Hydroxy Vitamin D 22 ng/mL (30-100)
[2022-07-26 16:09] LABS: Calcium 9.1 mg/dL (8.5-10.5)
[2022-07-26 16:10] LABS: Parathyroid Hormone 54.1 pg/mL (15-65)
== END 2022-07-26 14:43 | disposition home or self-care (01) ==
LOC: LAB 14:47
PROVIDERS: PCP Family Medicine; Referring Provider Internal Medicine; Visit Provider Family Medicine
DX: M81.0 Age-related osteoporosis without current pathological fracture (principal); T07.XXXA Unspecified multiple injuries, initial encounter; R39.9 Unspecified symptoms and signs involving the genitourinary system; M72.2 Plantar fascial fibromatosis; Z98.890 Other specified postprocedural states; X58.XXXA Exposure to other specified factors, initial encounter
CPT/HCPCS: 36415; 81003; 82306; 82310; 83735; 83970; 99213

== ENCOUNTER → 2022-07-28 08:29 | Outpatient (BNVA) | payer MEDICARE, MEDICAID, SELFPAY | PROVIDERS: PCP Family Medicine; Visit Provider Orthopaedic Surgery | DX: M54.9 Dorsalgia, unspecified (principal); R32 Unspecified urinary incontinence; R20.0 Anesthesia of skin; N28.1 Cyst of kidney, acquired; Z98.1 Arthrodesis status | CPT/HCPCS: 99214 ==

== ENCOUNTER → 2022-08-13 17:02 | Outpatient (BNVA) | payer MEDICARE, MEDICAID, SELFPAY | PROVIDERS: PCP Family Medicine; Visit Provider Emergency Medicine | DX: R43.2 Parageusia (principal); J02.9 Acute pharyngitis, unspecified; R68.89 Other general symptoms and signs; J20.9 Acute bronchitis, unspecified | CPT/HCPCS: 87071; 87400; 87426; 87880 ==

== ENCOUNTER 2022-08-25 16:03 | Outpatient (CLI) | payer MEDICARE, MEDICAID, SELFPAY | END 2022-08-25 16:04 | disposition home or self-care (01) | LOC: SPT 16:04 | PROVIDERS: PCP Family Medicine; Visit Provider Podiatrist Foot & Ankle Surgery | DX: Z46.89 Encounter for fitting and adjustment of other specified devices (principal); M24.571 Contracture, right ankle; M72.2 Plantar fascial fibromatosis; M79.671 Pain in right foot | CPT/HCPCS: 97760; L3030 ==

== ENCOUNTER → 2022-08-31 15:54 | Outpatient (BNVA) | payer MEDICARE, MEDICAID, SELFPAY | PROVIDERS: PCP Family Medicine; Visit Provider Internal Medicine | DX: E06.3 Autoimmune thyroiditis (principal); E03.8 Other specified hypothyroidism; M81.0 Age-related osteoporosis without current pathological fracture; E04.1 Nontoxic single thyroid nodule; T07.XXXA Unspecified multiple injuries, initial encounter; Z79.890 Hormone replacement therapy; X58.XXXA Exposure to other specified factors, initial encounter | CPT/HCPCS: 36415; 82306; 84439; 84443; 84480; 99214 ==

== ENCOUNTER → 2022-10-11 09:45 | Outpatient (BNVA) | payer MEDICARE, MEDICAID, SELFPAY | PROVIDERS: PCP Family Medicine; Visit Provider Family Medicine | DX: R53.83 Other fatigue (principal); E55.9 Vitamin D deficiency, unspecified | CPT/HCPCS: 80053; 82607; 82652; 83735; 84443; 85025; 85651; 86038; 86140 ==

== ENCOUNTER → 2023-01-03 14:35 | Outpatient (BNVA) | payer MEDICARE, MEDICAID, SELFPAY | PROVIDERS: PCP Family Medicine; Visit Provider Physician Assistant | DX: M48.061 Spinal stenosis, lumbar region without neurogenic claudication (principal); Z98.1 Arthrodesis status; M51.16 Intervertebral disc disorders with radiculopathy, lumbar region | CPT/HCPCS: 72110; 72148; 99213 ==

== ENCOUNTER 2023-01-03 16:32 | Outpatient (CLI) | payer MEDICARE, MEDICAID, SELFPAY ==
--- NOTE | 2023-01-03 16:45 | MR_ITS ---
WS: [id number] MRI LUMBAR SPINE NONCONTRAST TECHNIQUE: Sagittal T1, T2 and STIR imaging. Axial T1 and T2 imaging. CLINICAL INFORMATION: pain COMPARISON: MRI 07/19/2022 and 12/10/2021 FINDINGS: Entire spine human factors specialist imaging included with Counting performed from the C2 level with 5 lumbar type vert ebral bodies. S1 is considered partially lumbarized for the purposes of this exam. Prior pedicle scre w fixation T10-L1 and L5-S1. Prior laminectomy. L1-L2: Normal. L2-L3: Mild annular bulging. Mild facet arthropathy. Spinal canal and foramen are patent. L3-L4: Mild annular bulging. Mild facet arthropathy. Small LEFT foraminal protrusion with mild LEFT f oraminal narrowing. Slight impingement on the exiting LEFT L3 nerve root. This appears stable compare d to previous. Mild facet arthropathy. L4-L5: Prominent central disc protrusion appears progressed compared to the prior examination. Narrow ing of the subarticular recess bilaterally with moderate central canal stenosis. Moderate facet arthr opathy. Mild RIGHT greater than LEFT foraminal narrowing. Prior RIGHT hemilaminectomy. L5-S1: Laminectomy defects. Pedicle screw fixation L5-S1. Spinal canal and foramen are patent. Slight narrowing of the LEFT subarticular recess. S1-S2: No significant disc bulging. Spinal canal and foramen are patent. Visualized pelvic bony structures: Normal. Paravertebral soft tissues: Normal. MR/MR lumbar spine wo con* [id number] IMPRESSION: 1. Counting performed from the C2 level today with 5 lumbar type vertebral bod ies. S1 is considered partially lumbarized for the purposes of this exam. 2. Prominent central disc protrusion L4-L5 appears progressed compared to prev ious. Slight impingement on the subarticular recess with moderate central canal stenosis. Prior RIGHT hemilaminectomy at this level. Some of this may represen t postoperative granulation tissue but appears progressed. 3. Spinal canal and foramen are patent at the L5-S1 level with decompressive l aminectomy. 4. Pedicle screw fixation L5-S1. 5. LEFT foraminal protrusion L3-L4 encroaches on the exiting LEFT L3 nerve nav t with mild LEFT foraminal narrowing unchanged. 6. Mild RIGHT greater than LEFT foraminal narrowing L4-L5.
== END 2023-01-03 16:33 | disposition home or self-care (01) ==
PROVIDERS: PCP Family Medicine; Visit Provider Physician Assistant
DX: M48.062 Spinal stenosis, lumbar region with neurogenic claudication (principal); M51.16 Intervertebral disc disorders with radiculopathy, lumbar region; M51.26 Other intervertebral disc displacement, lumbar region
CPT/HCPCS: 72148; 99213

== ENCOUNTER → 2023-01-10 14:00 | Outpatient (BNVA) | payer MEDICARE, MEDICAID, SELFPAY | PROVIDERS: PCP Family Medicine; Visit Provider Orthopaedic Surgery | DX: M48.062 Spinal stenosis, lumbar region with neurogenic claudication; Z98.890 Other specified postprocedural states; Z98.1 Arthrodesis status | CPT/HCPCS: 99214 ==

== ENCOUNTER → 2023-01-18 11:01 | Outpatient (BNVA) | payer MEDICARE, MEDICAID, SELFPAY | PROVIDERS: PCP Family Medicine; Visit Provider Family Medicine | DX: Z01.818 Encounter for other preprocedural examination (principal) | CPT/HCPCS: 80048; 81003; 85025 ==

== ENCOUNTER 2023-01-27 06:54 | Day surgery (SDC) | payer MEDICARE, MEDICAID, SELFPAY ==
[2023-01-26 10:33] VITALS: BMI 25.8
[2023-01-27] VITALS (13 sets, daily range): BP systolic 105–156; BP diastolic 67–94; PULSE 50–69; RESP 16–18; TEMP 36.1–36.6; O2SAT 94–100
--- NOTE | 2023-01-27 | XR_ITS ---
WS: [id number] EXAMINATION: XR lumbar spine 1V 37050 L-SPINE : 3 views REASON FOR EXAM: or pic. l3-4 decompression COMPARISON: None available. ORDER DATE: 01/27/2023 12:00 AM FINDINGS/impression: Fluoroscopy was provided for intraoperative imaging for lumbar fusion. Total fluoroscopy time 18.5 se conds
[2023-01-27] MEDS: diphenhydrAMINE 50 mg/mL SDV 1mL 12.5 MG IVP (07:34)
[2023-01-27] MEDS: scopolamine 1.5 Patch 1 PATCH TRANSDERMA (07:34)
[2023-01-27] MEDS: vancomycin 1,000 MG in sodium chloride 0.9% 250 ML 250 MG IV (07:35)
[2023-01-27] MEDS: sodium chloride 0.9% 1,000 ML 30 ML IV (07:35)
[2023-01-27] MEDS: famotidine 20 mg/2 mL INJ IVP (08:04)
--- NOTE | 2023-01-27 08:05 | W.PM.OPSUD ---
Surgery/Procedure H&P Update DATE OF PROCEDURE: January 27, 2023 DATE H&P PERFORMED: 01/10/23 H&P UPDATE INFORMATION: I have reviewed H&P completed within last 30 days, I have examined patient prior to procedure and No changes to prior documentation PREOP DIAGNOSIS: Herniated nucleus pulposus L 3 -4 PLANNED PROCEDURE: Operation Date: 01/27/23 08:35 Proposed Procedures p Lumbar Spine Decompression(Left) [place] [id number] Left sided L3-4 minimally invasive decompression, 30[address] Discectomy: M48.062 Lumbar stenosis with neurogenic claudication(Left) - Bernard Cartagena DO
--- NOTE | 2023-01-27 08:05 | ANES.PREANE2 ---
Pre-Anesthetic Assessment Height/Weight: Height 1.68 m Weight 72.575 kg Temp Pulse Resp BP Pulse Ox O2 Del Method 97 F L 67 18 114/75 96 Room Air 01/27/23 07:11 01/27/23 07:11 01/27/23 07:11 01/27/23 07:11 01/27/23 07:11 01/27/23 07:25 Preop Diagnosis: Herniated nucleus pulposus L 3 -4 Operation Date: 01/27/23 08:35 Proposed Procedures p Lumbar Spine Decompression(Left) - [place] [id number] Left sided L3-4 minimally invasive decompression, 18995 Discectomy: M48.062 Lumbar stenosis with neurogenic claudication(Left) - Bernard Cartagena DO Familial anesthetic complications: PONV, difficult intubation Last intake: Intake Last Liquid Date 01/26/23 Last Liquid Time 23:00 Last Solid Date 01/26/23 Last Solid Time 23:00 Social Tobacco and No alcohol Exam alert, oriented x 3, clear to auscultation bilaterally and regular rate & rhythm Airway Submandibular: within normal limits Cervical ROM: within normal limits Mallampati: Class II Dentition: full GI Gastroesophageal Reflux Disease Musc/skel Lower Back Pain and Osteoarthritis/DJD Neuropsych Anxiety and Depression chronic pain/opioid Anesthetic Plan ASA status: 3 Anesthesia: General (TIVA) Medications/Allergies Home Medications Medication Instructions Recorded Confirmed Last Taken Type montelukast 10 mg tablet 10 mg PO DAILY 07/12/21 01/26/23 01/26/23 History (Singulair) thiamine HCl (vitamin B1) 100 mg 100 mg PO DAILY #30 tabs 08/03/21 01/26/23 01/26/23 Rx tablet multivitamin 1 tab PO DAILY 11/16/21 01/26/23 01/26/23 History cetirizine 10 mg tablet (Allergy 10 mg PO DAILY PRN Allergic 01/04/22 01/27/23 01/26/23 History Relief (cetirizine)) Symptoms cyanocobalamin (vitamin B-12) 1,000 mcg PO DAILY 01/13/22 01/26/23 01/26/23 History 1,000 mcg tablet (Vitamin B-12) docusate sodium 100 mg capsule 100 mg PO DAILY 01/13/22 01/26/23 01/26/23 History (Stool Softener) calcium 500 mg tablet 500 mg PO DAILY 04/06/22 01/26/23 01/26/23 History fluticasone propionate 50 1 spray intranasal DAILY PRN 04/20/22 01/26/23 Unknown Rx mcg/actuation nasal allergy symptoms #16 grams spray,suspension ibuprofen 800 mg tablet 800 mg PO Q8H PRN pain 30 days #90 07/05/22 01/27/23 01/20/23 Rx tabs custom molded orthotic inserts #1 ea 07/26/22 01/10/23 Unknown Rx teriparatide 20 mcg/dose (600 20 mcg (0.08 mL) SUBCUT DAILY 30 09/12/22 01/26/23 01/26/23 Rx mcg/2.4 mL) subcutaneous pen days #24 mL injector (Forteo) Tempur-Pedic bed #1 ea 10/27/22 01/10/23 Unknown Rx diphenhydramine HCl 25 mg capsule 25 mg PO .at bedtime PRN allergy 11/14/22 01/26/23 01/25/23 Rx (Allergy (diphenhydramine)) symptoms 30 days #30 caps duloxetine 20 mg capsule,delayed 20 mg PO BID 30 days #60 caps 11/14/22 01/26/23 01/27/23 Rx release (Cymbalta) famotidine 20 mg tablet 40 mg PO BID 30 days #120 tabs 11/14/22 01/26/23 01/26/23 Rx hydrocodone 5 mg-acetaminophen 325 1 tab PO Q4H PRN pain 5 days #30 01/03/23 01/26/23 01/26/23 Rx mg tablet tabs Tirosint 50 mcg capsule See Rx Instructions .Route 01/06/23 01/26/23 01/26/23 Rx (levothyroxine) .COMPLEX #96 caps fluconazole 150 mg tablet 150 mg PO Q3D PRN yeast infection 01/26/23 01/26/23 Unknown History Allergies Allergy/AdvReac Type Severity Reaction Status Date / Time codeine Allergy Severe Hives Verified 01/27/23 07:17 latex Allergy Severe blistering Verified 01/27/23 07:17 oxycodone [From OxyContin] Allergy Severe Blackout Verified 01/27/23 07:17 Penicillins Allergy Severe Throat Verified 01/27/23 07:17 closed erythromycin base Allergy Intermediate Rash, Verified 01/27/23 07:17 headache adhesive Allergy Unknown Verified 01/27/23 07:17 celecoxib [From Celebrex] Allergy Unknown Verified 01/27/23 07:17 clindamycin Allergy ADR-Vomitin Verified 01/27/23 07:17 g egg Allergy inflammatio Verified 01/27/23 07:17 n gluten Allergy inflammatio Verified 01/27/23 07:17 n red dye Allergy ADR-Vomitin Verified 01/27/23 07:17 g gabapentin AdvReac FAMILY SERVICES COORDINATOR Verified 01/27/23 07:17 EFFECTS- BURNING NERVE PAIN pregabalin AdvReac FAMILY SERVICES COORDINATOR EFFECTS Verified 01/27/23 07:17 tramadol AdvReac N/V Verified 01/27/23 07:17 bactrim Allergy ADR-Headach Uncoded 01/26/23 10:28 e Current Medications Generic Name Dose Route Start Last Admin Trade Name Freq PRN Reason Stop Dose Admin Diphenhydramine HCl 12.5 mg 01/27/23 07:11 01/27/23 07:34 Diphenhydramine 50 Mg/Ml Sdv 1ml IVP 12.5 mg ONCE PRN Administration PONV Sodium Chloride 1,000 mls @ 30 mls/hr 01/27/23 07:15 01/27/23 07:35 Sodium Chloride 0.9% IV 01/28/23 07:14 30 mls/hr .Q24H LISANDRO Administration Vancomycin HCl 1,000 mg/ 250 mls @ 250 mls/hr 01/27/23 07:12 01/27/23 07:35 Sodium Chloride IV 01/27/23 08:11 250 mls/hr ONCE ONE Administration Protocol [facility] Anesthesia Medical History Allergies Cauda equina compression Flank 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 Long-term current use of opiate analgesic Pain management contract signed Postlaminectomy syndrome of lumbosacral region Pseudoarthrosis Spondylolisthesis, lumbar region Tobacco abuse Surgical History H/O: hysterectomy (~1993) History of appendectomy (~1989) History of cholecystectomy (~1994) History of lumbar fusion (~05/10/11) S/P cervical spinal fusion (~06/15/06) Family History Mother Diabetes Hypertension Sister Hypertension Father Hypertension Denies family history of Colon cancer Ovarian cancer Heart disease Hypercholesteremia Breast cancer Uterine cancer Thyroid disease Stroke Social History Substance/Drug Use: never Female Reproductive History Spontaneous abortions: No Data Anesthesia Cardiac Studies: No Data to Display
[2023-01-27] MEDS: lidocaine-epi 1% 20 mL INJ INJECTION (09:04)
--- NOTE | 2023-01-27 10:00 | P.OP_ITS ---
Operative Report Date of procedure: January 27, 2023 Pre-op diagnosis: Preop Diagnosis lumbar stenosis with neurogenic claudication Post-op diagnosis: same Procedure done: L3-4 laminectomy with partial facetectomy Surgeon: Bernard Cartagena Administrative Law Judge: none Estimated blood loss (mL): 5 Complications: possible dural tear Procedure: Patient is brought to the operative suite. After undergoing anesthesia they are placed in the prone position. All areas of impingement are well padded. Patient is then prepped and draped in the normal sterile fashion. A skin incision is made over the L3-4 level. This is confirmed under c-arm guidance. A series of dilators are passed and the tubular retractor is docked on the L3 lamina. A bovie is used to clear the soft tissue off the lamina and the L 3/4 facet joint. A high speed james is then used to perform the laminectomy and take down the medial aspect of the L 3/4 facet joint. A kerrison rongeure was then used to take down the remaining lamina and smooth the edge of the laminectomy up to the point where the ligamentum flavum attaches. Attention was then brought to the medial aspect of the facet joint. The remaining medial aspect of the superior and inferior aspect of the facet joint were taken down with the kerrison from the pedicle of L3 to L 4. The facet joint had significant hypertrophy. Attention was then brought to the Ligamentum Flavum. The ligament was taken down from the lamina of L3 to L4 and out medially to the remaining facet joint. The ligament was scarred. The dura was then exposed. The dura was in good repair. At this point the nerve root was attempted to be retracted in order to look at the disc. However the dura was scarred down pretty significantly to the disc the dura started to at this point I did not proceed with doing any type of disc work. There was some clear fluid started, however did stop. I am not 100% sure if it was done or if it was from the fluid that is on the MRI at the level below. The L3 nerve was then traced with a curette out the L3/4 foramen and found to be adequately decompressed. The L4 nerve was traced with a curette around the L4 pedicle. The lateral recess was opened with a kerrison helping to further decompress the L4 nerve. Wound is then irrigated copiously with saline and surgiflo is used to stop any bleeding. The tubular retractor is removed and the wound is closed with vicryl and monocryl suture. Glue is then used to protect the wound. A sterile dressing is then placed. Patient was then placed in the supine position and transferred to the PACU in stable condition.
[2023-01-27] MEDS: fentaNYL 50 mcg/mL INJ 2mL IVP (10:18)
[2023-01-27] MEDS: HYDROcodone-acetaminophen 5-325 mg Tablet 1 TAB PO (11:24)
--- NOTE | 2023-01-27 11:24 | PC.NURSE ---
report taken from [facility]
--- NOTE | 2023-01-27 15:00 | ANE.PACU2 ---
Inpatient post-anesthesia follow up: Airway intact: Yes Vital signs: Temperature 97.6 F Pulse Rate 53 Respiratory Rate 16 Blood Pressure 113/67 Pulse Oximetry 98 Oxygen Delivery Me thod Room Air Oxygen Flow Rate Fraction of Inspir ed Oxygen Hydration adequate: Yes Nausea and vomiting: No Pain level: 3 Mental status: Baseline
== END 2023-01-27 12:05 | disposition home or self-care (01) ==
PROVIDERS: PCP Family Medicine; Visit Provider Orthopaedic Surgery
PROC: (CPT 63005; principal; 2023-01-27 08:25)
PROC: (CPT 63047; 2023-01-27 08:25)
DX: M48.062 Spinal stenosis, lumbar region with neurogenic claudication (principal); K21.9 Gastro-esophageal reflux disease without esophagitis
CPT/HCPCS: 63047; 72020; 76000; J0131; J1100; J1200; J2405; J2704; J2710; J3010; J3370; J3490; J7030; J7050

== ENCOUNTER → 2023-02-02 11:35 | Outpatient (BNVA) | payer MEDICARE, MEDICAID, SELFPAY | PROVIDERS: PCP Family Medicine; Visit Provider Emergency Medicine | DX: N39.0 Urinary tract infection, site not specified (principal) | CPT/HCPCS: 81000; 87077; 87086; 87184 ==

== ENCOUNTER → 2023-02-09 14:06 | Outpatient (BNVA) | payer MEDICARE, MEDICAID, SELFPAY | PROVIDERS: PCP Family Medicine; Visit Provider Physician Assistant | DX: Z47.89 Encounter for other orthopedic aftercare (principal) | CPT/HCPCS: 99024 ==

== ENCOUNTER → 2023-02-14 10:31 | Outpatient (BNVA) | payer MEDICARE, MEDICAID, SELFPAY | PROVIDERS: PCP Family Medicine; Visit Provider Family Medicine | DX: F41.9 Anxiety disorder, unspecified (principal); M51.16 Intervertebral disc disorders with radiculopathy, lumbar region; E03.8 Other specified hypothyroidism; E06.3 Autoimmune thyroiditis; M81.0 Age-related osteoporosis without current pathological fracture; T78.40XA Allergy, unspecified, initial encounter; F51.02 Adjustment insomnia; Z74.09 Other reduced mobility; Z78.9 Other specified health status | CPT/HCPCS: 82306; 84439; 84443; 84480 ==

== ENCOUNTER → 2023-02-23 14:14 | Outpatient (BNVA) | payer MEDICARE, MEDICAID, SELFPAY | PROVIDERS: PCP Family Medicine; Visit Provider Nurse Practitioner Family | DX: R30.0 Dysuria (principal); R35.0 Frequency of micturition; N39.0 Urinary tract infection, site not specified | CPT/HCPCS: 81000 ==

== ENCOUNTER → 2023-03-01 09:51 | Outpatient (BNVA) | payer MEDICARE, MEDICAID, SELFPAY | PROVIDERS: PCP Family Medicine; Visit Provider Internal Medicine | DX: E06.3 Autoimmune thyroiditis (principal); E03.8 Other specified hypothyroidism; E04.1 Nontoxic single thyroid nodule; T07.XXXA Unspecified multiple injuries, initial encounter; M81.0 Age-related osteoporosis without current pathological fracture; M79.7 Fibromyalgia; X58.XXXA Exposure to other specified factors, initial encounter; Z79.890 Hormone replacement therapy | CPT/HCPCS: 99214 ==

== ENCOUNTER 2023-03-13 13:16 | Outpatient (CLI) | payer MEDICARE, MEDICAID, SELFPAY ==
--- NOTE | 2023-03-13 13:30 | US_ITS ---
WS: [id number] THYROID ULTRASOUND HISTORY: Thyroid Nodule COMPARISON: 05/16/2022 Right lobe: 1.8 cm x 1.6 cm x 5.4 cm (w x ap x l). Volume: 7.8 cm3. Small echogenic gland with scattered echogenic foci. There is a small hypoechoic nodule measuring 4 m m at its maximum in the mid gland. Left lobe: 1.5 cm x 1.3 cm x 4.9 cm (w x ap x l). Volume: 4.9 cm3. Small echogenic thyroid. There are a few small scattered echogenic foci. Hypoechoic nodule from the i nferior thyroid measures 7 x 7 x 8 mm. There is increased peripheral vascularity. Isthmus: 0.2 cm. IMPRESSION: 1. Coarse thyroid with a few echogenic foci. 2. Bilateral small subcentimeter thyroid nodules no new or increasing nodule.
== END 2023-03-13 13:17 | disposition home or self-care (01) ==
PROVIDERS: PCP Family Medicine; Visit Provider Internal Medicine
DX: E03.8 Other specified hypothyroidism (principal); E04.1 Nontoxic single thyroid nodule; E06.3 Autoimmune thyroiditis
CPT/HCPCS: 76536

== ENCOUNTER → 2023-03-30 13:07 | Outpatient (BNVA) | payer MEDICARE, MEDICAID, SELFPAY | PROVIDERS: PCP Family Medicine; Visit Provider Orthopaedic Surgery | DX: Z98.890 Other specified postprocedural states (principal); M48.062 Spinal stenosis, lumbar region with neurogenic claudication | CPT/HCPCS: 72100; 99024 ==

== ENCOUNTER 2023-04-26 10:01 | Outpatient (CLI) | payer MEDICARE, MEDICAID, SELFPAY ==
--- NOTE | 2023-04-26 10:15 | MR_ITS ---
WS: [email or web address] MRI CERVICAL SPINE NONCONTRAST TECHNIQUE: Sagittal T1, T2 and STIR imaging. Axial T2, gradient, and fiesta imaging. CLINICAL INFORMATION: cervical COMPARISON: MRI cervical 12/16/2021 FINDINGS: Straightening of the normal cervical lordosis. Prior postoperative changes ACDF C5-6. Cord signal is normal. C2-C3: Normal. C3-C4: Disc osteophyte complex with endplate ridging. Moderate facet arthropathy. Moderate to severe LEFT bony foraminal narrowing. Mild to moderate facet arthropathy. C4-C5: Disc osteophyte complex with endplate ridging. Moderate LEFT and mild RIGHT bony foraminal oscar rowing. Spinal canal is patent. Moderate facet arthropathy. C5-C6: Prior postoperative changes. Spinal canal and foramen are patent. C6-C7: Mild disc bulging with osteophytic ridging. Mild LEFT greater than RIGHT foraminal narrowing. Spinal canal is patent. Mild facet arthropathy. C7-T1: Mild LEFT and no significant RIGHT foraminal narrowing. Spinal canal is patent. T1-T2: Mild RIGHT bony foraminal narrowing. Visualized brain stem structures: Normal. Prevertebral soft tissues: Normal. IMPRESSION: 1. Overall no significant changes compared to previous. 2. Stable moderate to severe LEFT C3-4 bony foraminal narrowing 3. Stable moderate LEFT C4-5 bony foraminal narrowing. 4. Stable mild central canal stenosis C4-5. 5. Stable postoperative changes ACDF C5-6.
== END 2023-04-26 10:02 | disposition home or self-care (01) ==
LOC: RAD 10:01
PROVIDERS: PCP Family Medicine; Visit Provider Orthopaedic Surgery
DX: M48.02 Spinal stenosis, cervical region (principal); Z98.1 Arthrodesis status
CPT/HCPCS: 72141

== ENCOUNTER → 2023-05-11 13:52 | Outpatient (BNVA) | payer MEDICARE, MEDICAID, SELFPAY | PROVIDERS: PCP Family Medicine; Visit Provider Orthopaedic Surgery | DX: M47.22 Other spondylosis with radiculopathy, cervical region (principal); Z98.1 Arthrodesis status | CPT/HCPCS: 72040; 99214 ==

== ENCOUNTER → 2023-06-08 10:37 | Outpatient (BNVA) | payer MEDICARE, MEDICAID, OTHER, SELFPAY | PROVIDERS: PCP Family Medicine; Visit Provider Family Medicine | DX: K59.00 Constipation, unspecified (principal); G47.00 Insomnia, unspecified; R39.9 Unspecified symptoms and signs involving the genitourinary system; M79.7 Fibromyalgia; F51.02 Adjustment insomnia; K59.04 Chronic idiopathic constipation; Z87.440 Personal history of urinary (tract) infections; R63.5 Abnormal weight gain | CPT/HCPCS: 81000 ==

== ENCOUNTER 2023-08-21 11:28 | Oncology outpatient (recurring) (ONCR) | payer MEDICARE, MEDICAID, OTHER, SELFPAY ==
[2023-08-21] MEDS: romosozumab-aqqg 210 mg/2.34 mL syr SUBCUT (12:12)
[2023-08-21 13:30] VITALS: BP 136/76; PULSE 94; RESP 16; TEMP 36.6; O2SAT 99
== END 2023-09-03 23:59 | disposition home or self-care (01) ==
PROVIDERS: PCP Family Medicine; Visit Provider Internal Medicine
DX: Z53.9 Procedure and treatment not carried out, unspecified reason (principal); M81.0 Age-related osteoporosis without current pathological fracture; E03.8 Other specified hypothyroidism; E06.3 Autoimmune thyroiditis; E04.1 Nontoxic single thyroid nodule; Z79.899 Other long term (current) drug therapy
CPT/HCPCS: 36415; 80053; 82306; 84439; 84443; 96372; 99214; J3111

== ENCOUNTER → 2023-09-02 13:56 | Outpatient (BNVA) | payer MEDICARE, MEDICAID, OTHER, SELFPAY | PROVIDERS: PCP Family Medicine; Visit Provider Nurse Practitioner Family | DX: R30.9 Painful micturition, unspecified (principal) | CPT/HCPCS: 81000; 87086 ==

== ENCOUNTER 2023-09-18 10:43 | Oncology outpatient (recurring) (ONCR) | payer MEDICARE, MEDICAID, OTHER, SELFPAY ==
[2023-09-18 11:12] VITALS: BP 118/78; PULSE 75; TEMP 36.5; O2SAT 94
[2023-09-18] MEDS: romosozumab-aqqg 210 mg/2.34 mL syr SUBCUT (11:13)
== END 2023-10-03 23:59 | disposition home or self-care (01) ==
LOC: ONCMED 10:43
PROVIDERS: PCP Family Medicine; Visit Provider Internal Medicine
DX: M81.0 Age-related osteoporosis without current pathological fracture (principal)
CPT/HCPCS: 96401; J3111

== ENCOUNTER → 2023-10-10 10:37 | Outpatient (BNVA) | payer MEDICARE, MEDICAID, OTHER, SELFPAY | PROVIDERS: PCP Family Medicine; Visit Provider Family Medicine | DX: J06.9 Acute upper respiratory infection, unspecified; E03.8 Other specified hypothyroidism | CPT/HCPCS: 80053; 84439; 84443; 85025 ==

== ENCOUNTER 2023-10-16 10:42 | Oncology outpatient (recurring) (ONCR) | payer MEDICARE, MEDICAID, SELFPAY ==
[2023-10-16 11:06] VITALS: BP 125/89; PULSE 76; RESP 18; TEMP 36.9; O2SAT 96
[2023-10-16] MEDS: romosozumab-aqqg 210 mg/2.34 mL syr SUBCUT (11:08)
== END 2023-11-03 23:59 | disposition home or self-care (01) ==
LOC: ONCMED 10:43
PROVIDERS: PCP Family Medicine; Visit Provider Internal Medicine
DX: M81.0 Age-related osteoporosis without current pathological fracture (principal)
CPT/HCPCS: J3111

== ENCOUNTER → 2023-10-19 10:02 | Outpatient (BNVA) | payer MEDICARE, MEDICAID, SELFPAY | PROVIDERS: PCP Family Medicine; Visit Provider Internal Medicine | DX: E06.3 Autoimmune thyroiditis (principal); M81.0 Age-related osteoporosis without current pathological fracture; E03.8 Other specified hypothyroidism; E04.1 Nontoxic single thyroid nodule; T07.XXXA Unspecified multiple injuries, initial encounter; X58.XXXA Exposure to other specified factors, initial encounter | CPT/HCPCS: 99215 ==

== ENCOUNTER → 2023-11-01 10:50 | Outpatient (BNVA) | payer MEDICARE, MEDICAID, SELFPAY | PROVIDERS: PCP Family Medicine; Referring Provider Internal Medicine; Visit Provider Internal Medicine | DX: E03.8 Other specified hypothyroidism; E06.3 Autoimmune thyroiditis | CPT/HCPCS: 80053 ==

== ENCOUNTER → 2023-11-07 11:47 | Outpatient (BNVA) | payer MEDICARE, MEDICAID, SELFPAY | PROVIDERS: PCP Family Medicine; Referring Provider Internal Medicine; Visit Provider Internal Medicine | DX: E03.8 Other specified hypothyroidism (principal); E06.3 Autoimmune thyroiditis; R76.8 Other specified abnormal immunological findings in serum; Z79.899 Other long term (current) drug therapy | CPT/HCPCS: 80048 ==

== ENCOUNTER → 2023-12-06 15:50 | Outpatient (BNVA) | payer MEDICARE, MEDICAID, SELFPAY | PROVIDERS: PCP Family Medicine; Referring Provider Family Medicine; Visit Provider Family Medicine | DX: M81.0 Age-related osteoporosis without current pathological fracture (principal); N20.0 Calculus of kidney; Z79.899 Other long term (current) drug therapy | CPT/HCPCS: 80053 ==

== ENCOUNTER → 2024-01-11 14:25 | Outpatient (BNVA) | payer MEDICARE, SELFPAY | PROVIDERS: PCP Family Medicine; Referring Provider Family Medicine; Visit Provider Family Medicine | DX: M47.22 Other spondylosis with radiculopathy, cervical region (principal) | CPT/HCPCS: 82310 ==

== ENCOUNTER → 2024-01-23 14:53 | Outpatient (BNVA) | payer MEDICARE, SELFPAY | PROVIDERS: PCP Family Medicine; Referring Provider Internal Medicine; Visit Provider Internal Medicine | DX: M81.0 Age-related osteoporosis without current pathological fracture (principal) | CPT/HCPCS: 82310 ==

== ENCOUNTER → 2024-01-31 10:30 | Outpatient (BNVA) | payer MEDICARE, SELFPAY | PROVIDERS: PCP Family Medicine; Visit Provider Family Medicine | DX: E03.9 Hypothyroidism, unspecified (principal); E03.8 Other specified hypothyroidism; E06.3 Autoimmune thyroiditis; R53.83 Other fatigue; M25.59 Pain in other specified joint | CPT/HCPCS: 83540; 84439; 84443; 84481; 85025 ==

== ENCOUNTER 2024-02-13 10:53 | Outpatient (CLI) | payer MEDICARE, SELFPAY ==
--- NOTE | 2024-02-13 11:00 | FL_ITS ---
WS: [id number] FL barium swallow modifd [id number] REASON FOR EXAM: R13.10 - Dysphagia, unspecified FLUOROSCOPY TIME: 2min [id number] # OF SPOT FILMS: 0 FINDINGS: Examination was supervised by the speech therapy department. The patient was examined in the sitting upright lateral projection. The swallowing of varying consist encies of barium was fluoroscopically monitored and video recorded. A detailed report of the swallowing will be rendered by the speech therapy department. FL/FL barium swallow modifd [id number] IMPRESSION: Modified barium swallow as above.
== END 2024-02-13 10:54 | disposition home or self-care (01) ==
PROVIDERS: PCP Family Medicine; Visit Provider Family Medicine
DX: R13.10 Dysphagia, unspecified (principal)
CPT/HCPCS: 74230; 83540; 84439; 84443; 84481; 85025; 92611

== ENCOUNTER → 2024-02-22 11:51 | Outpatient (BNVA) | payer MEDICARE, SELFPAY | PROVIDERS: PCP Family Medicine; Referring Provider Family Medicine; Visit Provider Family Medicine | DX: E03.8 Other specified hypothyroidism (principal); E06.3 Autoimmune thyroiditis | CPT/HCPCS: 82310 ==

== ENCOUNTER → 2024-03-18 13:58 | Outpatient (BNVA) | payer MEDICARE, SELFPAY | PROVIDERS: PCP Family Medicine; Referring Provider Family Medicine; Visit Provider Family Medicine | DX: E03.8 Other specified hypothyroidism (principal); E06.3 Autoimmune thyroiditis; R70.0 Elevated erythrocyte sedimentation rate; M25.59 Pain in other specified joint; R53.83 Other fatigue | CPT/HCPCS: 82310; 85651; 86038; 86140; 86618; 86666; 86757 ==

== ENCOUNTER → 2024-03-26 15:31 | Outpatient (BNVA) | payer MEDICARE, SELFPAY | PROVIDERS: PCP Family Medicine; Visit Provider Family Medicine | DX: M81.0 Age-related osteoporosis without current pathological fracture (principal) | CPT/HCPCS: 82310 ==

== ENCOUNTER → 2024-04-22 10:04 | Outpatient (BNVA) | payer MEDICARE, SELFPAY | PROVIDERS: PCP Family Medicine; Visit Provider Internal Medicine | DX: M81.0 Age-related osteoporosis without current pathological fracture (principal); E03.9 Hypothyroidism, unspecified | CPT/HCPCS: 82306; 82310; 84439; 84443 ==

== ENCOUNTER → 2024-04-25 14:47 | Outpatient (BNVA) | payer MEDICARE, SELFPAY | PROVIDERS: PCP Family Medicine; Referring Provider Family Medicine; Visit Provider Family Medicine | DX: M81.0 Age-related osteoporosis without current pathological fracture (principal) | CPT/HCPCS: 82310 ==

== ENCOUNTER → 2024-05-14 08:40 | Outpatient (BNVA) | payer MEDICARE, SELFPAY | PROVIDERS: PCP Family Medicine; Visit Provider Internal Medicine | DX: E06.3 Autoimmune thyroiditis (principal); E03.8 Other specified hypothyroidism; T07.XXXA Unspecified multiple injuries, initial encounter; M81.0 Age-related osteoporosis without current pathological fracture; E04.1 Nontoxic single thyroid nodule; X58.XXXA Exposure to other specified factors, initial encounter | CPT/HCPCS: 99215 ==

== ENCOUNTER → 2024-05-20 09:45 | Outpatient (BNVA) | payer MEDICARE, SELFPAY | PROVIDERS: PCP Family Medicine; Referring Provider Family Medicine; Visit Provider Family Medicine | DX: M81.0 Age-related osteoporosis without current pathological fracture (principal); Z79.899 Other long term (current) drug therapy | CPT/HCPCS: 82310 ==

== ENCOUNTER → 2024-05-22 11:18 | Outpatient (BNVA) | payer MEDICARE, SELFPAY | PROVIDERS: PCP Family Medicine; Visit Provider Family Medicine | DX: R60.9 Edema, unspecified (principal); M19.049 Primary osteoarthritis, unspecified hand; M19.039 Primary osteoarthritis, unspecified wrist; E03.9 Hypothyroidism, unspecified; M81.0 Age-related osteoporosis without current pathological fracture; E03.8 Other specified hypothyroidism; E06.3 Autoimmune thyroiditis; M79.7 Fibromyalgia; Z79.899 Other long term (current) drug therapy | CPT/HCPCS: 80053; 83880; 84439; 84443; 84481; 85651; 86140 ==

== ENCOUNTER 2024-06-24 13:29 | Outpatient (CLI) | payer MEDICARE, SELFPAY ==
--- NOTE | 2024-06-24 13:30 | XR_ITS ---
WS: [id number] DEXA (DUAL ENERGY X-RAY ABSORPTIOMETRY) Bone mineral density was performed using a [employer] machine. HISTORY: osteoporosis COMPARISON: 05/12/2022 Left forearm BMD: 0.826 g/cm2. T score: -0.6 Z score: -0.1 Total hip BMD: Left: 0.837 g/cm2. T score: -1.4 Z score: -1.3 Right: 0.813 g/cm2. T score: -1.5 Z score: -1.5 10 year probability of a major osteoporotic fracture is 24.8% Compared to the prior study from 05/12/2022. Lumbar spine bone mineral density has increased by 2.4%. Bilateral hips bone mineral density has increased by 28.5%. XR/XR DEXA axial skeleton* [id number] IMPRESSION: OSTEOPENIA based upon the WHO classification for females. Significant increase in bone mineral density within both the LEFT forearm and h ips since the prior study.
--- NOTE | 2024-06-24 13:58 | XRR_ITS ---
PROCEDURE INFORMATION: Exam: XR Left Hip Exam date and time: 06/24/2024 2:03 PM Age: 53 years old Clinical indication: Hip pain; Left hip; Patient HX: Pain RT hip and femur for 2 months TECHNIQUE: Imaging protocol: Radiologic exam of the left hip. Views: 2 or 3 views hip with pelvis when performed. COMPARISON: CR XR hip LT 2-3V wo/w pel* [id number] 11/25/2021 4:10 PM FINDINGS: Bones/joints: Unremarkable. No acute fracture. No lytic or sclerotic bone lesion. No congenital anomaly. Soft tissues: Unremarkable. XR/XR hip LT 2-3V wo/w pel* [id number] IMPRESSION: No acute findings.
--- NOTE | 2024-06-24 13:58 | XRR_ITS ---
PROCEDURE INFORMATION: Exam: XR Left Femur Exam date and time: 06/24/2024 2:03 PM Age: 53 years old Clinical indication: Pain; Thigh; Left; Additional info: Left hip/femur pain TECHNIQUE: Imaging protocol: Radiologic exam of the left femur. Views: 2 views. COMPARISON: CR XR hip LT 2-3V wo/w pel* [id number] 06/24/2024 2:03 PM FINDINGS: Bones/joints: No fracture or dislocation. No acute osseous, joint, or soft tissue abnormality.. No acute fracture. Soft tissues: Unremarkable. XR/XR femur LT min 2V* [id number] IMPRESSION: No acute findings.
== END 2024-06-24 13:30 | disposition home or self-care (01) ==
LOC: RAD 13:31
PROVIDERS: PCP Family Medicine; Visit Provider Internal Medicine
DX: M81.0 Age-related osteoporosis without current pathological fracture (principal); T07.XXXA Unspecified multiple injuries, initial encounter; M85.80 Other specified disorders of bone density and structure, unspecified site; X58.XXXA Exposure to other specified factors, initial encounter
CPT/HCPCS: 73502; 73552; 77080

== ENCOUNTER 2024-07-12 11:10 | Outpatient (CLI) | payer MEDICARE, SELFPAY ==
[2024-07-12 12:32] LABS: 25 Hydroxy Vitamin D 36 ng/mL (30-100); Alanine Aminotransferase 10 U/L (0-33); Albumin Level 4.2 g/dL (3.5-5.2); Alkaline Phosphatase 107 U/L (35-105); Anion Gap 13.2 (5-19); Aspartate Amino Transferase 12 U/L (0-32); Blood Urea Nitrogen 13 mg/dL (6-20); Carbon Dioxide 27 mmol/L (22-29); Chloride 106 mmol/L (98-107); Globulin 2.7 g/dL (1.3-4.6); Glomerular Filtration Rate 74.7 mL/min (90-130); Glucose 90 mg/dL (65-115); Osmolality Calculated 294 mOsm/kg (285-295); Potassium 4.2 mmol/L (3.5-5.1); Sodium 142 mmol/L (136-145); Thyroid Stimulating Hormone 0.63 uIU/mL (0.27-4.20); Total Bilirubin 0.4 mg/dL (0.15-1.2); Total Protein 6.9 g/dL (6.6-8.7)
[2024-07-12 12:54] LABS: Free T4 Free Thyroxine 1.73 ng/dL (0.82-1.77)
== END 2024-07-12 11:11 | disposition home or self-care (01) ==
PROVIDERS: PCP Family Medicine; Visit Provider Internal Medicine
DX: M81.0 Age-related osteoporosis without current pathological fracture (principal); E06.3 Autoimmune thyroiditis; E03.8 Other specified hypothyroidism; T07.XXXA Unspecified multiple injuries, initial encounter; E04.1 Nontoxic single thyroid nodule; X58.XXXA Exposure to other specified factors, initial encounter
CPT/HCPCS: 36415; 80053; 82306; 84439; 84443

== ENCOUNTER → 2024-10-15 10:07 | Outpatient (BNVA) | payer MEDICARE, MEDICAID, SELFPAY | PROVIDERS: PCP Family Medicine; Visit Provider Nurse Practitioner | DX: R10.9 Unspecified abdominal pain (principal) | CPT/HCPCS: 81000 ==

== ENCOUNTER → 2024-11-04 13:57 | Outpatient (BNVA) | payer MEDICARE, MEDICAID, SELFPAY | PROVIDERS: PCP Family Medicine; Visit Provider Nurse Practitioner | DX: E06.3 Autoimmune thyroiditis (principal); E03.8 Other specified hypothyroidism; E04.1 Nontoxic single thyroid nodule; R76.8 Other specified abnormal immunological findings in serum; E55.9 Vitamin D deficiency, unspecified; M81.0 Age-related osteoporosis without current pathological fracture | CPT/HCPCS: 80053; 81000; 82306; 84439; 84443; 87086 ==

== ENCOUNTER → 2024-11-07 09:54 | Outpatient (BNVA) | payer MEDICARE, MEDICAID, SELFPAY | PROVIDERS: PCP Family Medicine; Referring Provider Internal Medicine; Visit Provider Internal Medicine Rheumatology | DX: M06.9 Rheumatoid arthritis, unspecified (principal); Z79.899 Other long term (current) drug therapy; Z71.85 Encounter for immunization safety counseling; M47.816 Spondylosis without myelopathy or radiculopathy, lumbar region; M81.0 Age-related osteoporosis without current pathological fracture; M45.9 Ankylosing spondylitis of unspecified sites in spine; M19.90 Unspecified osteoarthritis, unspecified site | CPT/HCPCS: 82306; 82550; 82784; 83520; 85025; 85651; 86140; 86431; 86480; 86704; 86803; 86812; 87340; 99205; 99214 ==

== ENCOUNTER → 2024-11-08 10:42 | Outpatient (BNVA) | payer MEDICARE, MEDICAID, SELFPAY | PROVIDERS: PCP Family Medicine; Referring Provider Internal Medicine Rheumatology; Visit Provider Internal Medicine Rheumatology | DX: R76.8 Other specified abnormal immunological findings in serum (principal) | CPT/HCPCS: 87517 ==

== ENCOUNTER 2025-01-29 12:34 | Inpatient (IN) | payer MEDICARE, SELFPAY ==
[2025-01-29] VITALS (15 sets, daily range): BP systolic 88–135; BP diastolic 59–95; PULSE 60–88; RESP 15–22; TEMP 36.2–36.9; O2SAT 91–98; BMI 31.6; BMI 30.6
--- NOTE | 2025-01-29 12:34 | ECG_ITS ---
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 Measurements Intervals [place] Rate: 79 P: 57 SC: 166 QRS: 96 QRSD: 83 T: 64 QT: 361 QTc: 415 Interpretive Statements SINUS RHYTHM POSSIBLE LEFT ATRIAL ENLARGEMENT [-0.1mV P-WAVE IN V1/V2] BORDERLINE RIGHT AXIS DEVIATION [QRS AXIS > 90] POSSIBLE RIGHT VENTRICULAR CONDUCTION DELAY [RSR (QR) IN V1/V2] No previous ECG available for comparison Electronically Signed On 01-29-2025 22:20:53 CDT by Sylvester Mazariegos M.D. [email or web address]
--- NOTE | 2025-01-29 12:40 | XR_ITS ---
WS: [id number] Exam: XR chest 1V portable [id number] Date/Time of Exam: 01/29/2025 12:43 PM Reason For Exam: chest pain No priors. Lungs are fully inflated and clear. Normal cardiomediastinal silhouette. Fusion hardware in the lower C-spine. Rods and pedicle screws also identified in the lower T-spine. XR/XR chest 1V portable [id number] IMPRESSION: 1. Negative chest.
--- NOTE | 2025-01-29 12:40 | CT_ITS ---
WS: [id number] CT HEAD TECHNIQUE: Noncontrast CT of the head obtained from the skullbase to the vertex. CLINICAL INFORMATION: Vertigo headache COMPARISON: None. DLP: 1090.[address] scans at [facility] use at least one of these dose optimization techniques: automated exposure control; mA and/or kV adjustment per patient size (includes targeted exams where dose is matched to clinical indication); or iterative reconstruction. FINDINGS: No evidence of intracranial hemorrhage or mass effect. Ventricular system and basal cisterns are patent. No extra-axial fluid collections. No evidence of mass or mass effect. Normal nascimento-white differentiation. Incidental slightly low-lying cerebellar tonsils Paranasal sinuses and mastoid air cells are well aerated. .Normal visualized soft tissues. CT/CT head wo con* [id number] IMPRESSION: 1. No evidence of intracranial hemorrhage or mass effect. 2. No acute intracranial findings.
--- NOTE | 2025-01-29 12:48 | W.ED.CHESTPA ---
Documented by User: Mian Espinosa DO 01/31/25 09:54 HPI - Chest Pain General: Chief Complaint: Chest Pain Stated Complaint: Chest Pain Time Seen by Provider: 01/29/25 12:35 History of Present Illness: 54-year-old female presents to the emergency room with a complaint of dizziness that began 3 days ago she had a headache associated with it significant vertigo now she has developed chest pain with pain radiating to her back and into her jaw. No known coronary artery disease. No history of any cardiac arrhythmias. She has no focal other focal neurologic deficits at this time. She has trouble ambulating at this point because of the degree of dizziness that this began several days ago. She is not on any anticoagulants. Associated symptoms: Deny abdominal pain, dyspnea or fever(s) Related Data Home Medications ?Medication ?Instructions ?Recorded ?Confirmed cholecalciferol (vitamin D3) 125 125 mcg PO DAILY 10/19/23 01/29/25 mcg (5,000 unit) tablet (Vitamin D3) calcium carbonate 500 mg PO DAILY 01/29/25 01/29/25 Previous Rx's ?Medication ?Instructions ?Recorded custom molded orthotic inserts #1 ea 07/26/22 cetirizine 10 mg tablet (Allergy 10 mg PO DAILY PRN Allergic 03/28/24 Relief (cetirizine)) Symptoms 90 days #90 tabs duloxetine 30 mg capsule,delayed 30 mg PO BID 90 days #180 caps 03/28/24 release famotidine 20 mg tablet 40 mg (2 x 20 mg) PO BID 90 days 03/28/24 #360 tabs ibuprofen 800 mg tablet See Rx Instructions .Route 03/28/24 .COMPLEX #90 tabs tizanidine 4 mg tablet 4 mg PO BID PRN muscle spasticity 03/28/24 #60 tabs Tirosint 100 mcg capsule 100 mcg PO DAILY #90 caps 07/12/24 (levothyroxine) alendronate 70 mg tablet See Rx Instructions .Route 10/29/24 .COMPLEX #12 tabs promethazine 25 mg tablet 25 mg PO Q6H PRN N/V #30 tabs 12/05/24 leflunomide 20 mg tablet 20 mg PO DAILY #30 tabs 01/24/25 lorazepam 1 mg tablet (Ativan) 1 mg PO Q6H PRN dizziness or 01/29/25 vertigo #10 tabs Allergies Allergy/AdvReac Type Severity Reaction Status Date / Time codeine Allergy Severe Hives Verified 01/29/25 12:45 latex Allergy Severe blistering Verified 01/29/25 12:45 oxycodone (From OxyContin) Allergy Severe Blackout Verified 01/29/25 12:45 Penicillins Allergy Severe Throat Verified 01/29/25 12:45 closed adhesive Allergy Unknown Verified 01/29/25 12:45 celecoxib (From Celebrex) Allergy Unknown Verified 01/29/25 12:45 clindamycin Allergy ADR-Vomitin Verified 01/29/25 12:45 g egg Allergy inflammatio Verified 01/29/25 12:45 n gluten Allergy inflammatio Verified 01/29/25 12:45 n red dye Allergy ADR-Vomitin Verified 01/29/25 12:45 g methotrexate AdvReac Intermediate ADR-Gastrointestinal Verified 01/29/25 12:45 Upset gabapentin AdvReac RADIOLOGY PHYSICIAN ASSISTANT Verified 01/29/25 12:45 EFFECTS- BURNING NERVE PAIN pregabalin AdvReac RADIOLOGY PHYSICIAN ASSISTANT EFFECTS Verified 01/29/25 12:45 sulfamethoxazole (From AdvReac ADR-Headach Verified 01/29/25 12:45 Bactrim) e tramadol AdvReac N/V Verified 01/29/25 12:45 trimethoprim (From Bactrim) AdvReac ADR-Headach Verified 01/29/25 12:45 e Steroids AdvReac Intermediate ADR-Rash Uncoded 01/29/25 11:08 Review of Systems Const: Denies: fever(s) or chills Card: Denies: chest pain Resp: Denies: dyspnea GI: Denies: abdominal pain : Denies: dysuria, urinary frequency or urinary urgency Musc: Denies: neck pain or back pain Skin/Breast: Denies: rash PFSH ED PFSH: Medical History Degenerative joint disease (DJD) of lumbar spine Immunization counseling High risk medication use Inflammatory arthritis Pseudoarthrosis Long-term current use of opiate analgesic Pain management contract signed Allergies Flank pain Cauda equina compression 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, lumbar region Tobacco abuse Postlaminectomy syndrome of lumbosacral region Surgical History S/P cervical spinal fusion (~06/15/06) History of appendectomy (~1989) History of cholecystectomy (~1994) H/O: hysterectomy (~1993) History of lumbar fusion (~05/10/11) Family History Mother Diabetes Hypertension Sister Hypertension Father Hypertension Denies family history of Colon cancer Ovarian cancer Heart disease Hypercholesteremia Breast cancer Uterine cancer Thyroid disease Stroke Social History Smoking and tobacco/nicotine status: unknown if used tobacco/nicotine Substance/Drug Use: never Female Reproductive History: Spontaneous abortions: No Physical Exam Const: COMMON NORMALS: no acute distress GENERAL APPEARANCE: cooperative and comfortable ORIENTATION/CONSCIOUSNESS: Yes awake, Yes oriented to person, Yes oriented to place and Yes oriented to time HENMT: COMMON NORMALS: normocephalic, atraumatic and hearing grossly normal bilaterally HEAD & SCALP: normocephalic and atraumatic Resp: COMMON NORMALS: normal respiratory effort, No retractions, No use of accessory muscles and clear to auscultation bilaterally AUSCULTATION: clear to auscultation bilaterally Cardio: COMMON NORMALS: regular rate, regular rhythm and No murmurs present (Cardio) RATE: regular rate RHYTHM: regular rhythm GI: COMMON NORMALS: Soft to palpation and No hepatosplenomegaly present AUSCULTATION: Yes normoactive bowel sounds PALPATION: Yes Soft to palpation, No Tenderness to palpation present (GI), No Guarding due to palpation present (GI) and Yes No hepatosplenomegaly present Extremity: COMMON NORMALS: normal to inspection, capillary refill normal, no clubbing, cyanosis or edema, no calf tenderness and no pedal edema Neuro: SENSORIUM/ORIENTATION: Yes oriented to person, Yes oriented to place and Yes oriented to time Skin: COMMON NORMALS: no rashes or lesions noted GENERAL SKIN EXAM: no rashes or lesions noted Course Vital Signs: Vital signs: Vital Signs Temperature 97.6 F 01/31/25 07:36 Pulse Rate 68 01/31/25 07:36 Respiratory Rate 16 01/31/25 07:36 Blood Pressure 132/82 01/31/25 07:36 Pulse Oximetry 95 01/31/25 07:36 Oxygen Delivery Me thod Room Air 01/31/25 07:36 MDM - Chest Pain Medical Decision Making CT CTA negative troponin trending negative EKG is unremarkable. Anticipate discharge patient home with Ativan to use as needed she did have improvement with her symptoms has fatigability of her vertigo. Is reproducible with head movement. Reviewed findings with her we will have her ambulate prior to discharge. Dr. Purvis: Patient signed out to me at time of shift change with plan for patient to be discharged. Nursing staff asked me to come and evaluate the patient as she does not feel comfortable with discharge. She cites ongoing dizziness with any motion of the head. She has already received Ativan. She remarks that prior to onset of dizziness she had sinus congestion and what she thought was allergies. She already underwent CTA of the head and neck which did not show evidence of cerebellar stroke. Symptoms do fatigue when she closes her eyes and holds her head still after roughly 5 to 10 seconds. I strongly suspect BPPV to be the cause of her dizziness. EKG and remainder of workup are reassuring without evidence of ACS or other emergent process. She is tearful describing her symptoms. We discussed that she most likely suffering from BPPV and I will give her an oral dose of meclizine and reassess her dizziness. After meclizine, she continues to have symptomsconsistent with BPPV. Diazepam was given orally. Given her ongoing instability with gait, she will be admitted to the hospital service observation status. I spoke with Dr. Washington who graciously agrees to admission Lab Data 01/31/25 04:44 01/31/25 04:44 Radiology Impressions Chest X-Ray 01/29/25 12:40 IMPRESSION: 1. Negative chest. Head CT 01/29/25 12:40 IMPRESSION: 1. No evidence of intracranial hemorrhage or mass effect. 2. No acute intracranial findings. Head/Neck CTA 01/29/25 15:50 IMPRESSION: No large vessel stenosis or occlusion. IMPRESSION: No stenosis or occlusion. REFERENCES: NASCET CRITERIA. The degree of stenosis in the cervical segment of the internal carotid artery is based on NASCET criteria. Normal is no stenosis. Mild is less than 50% stenosis. Moderate is 50-69% stenosis. Severe is 70% to 99% stenosis. Total occlusion is no detectable patent lumen. Head MRI 01/30/25 14:16 IMPRESSION: No acute intracranial abnormality. Laboratory Results WBC 6.04 10^3/uL (3.29-11.43) 01/30/25 04:52 RBC 4.57 10^6/uL (3.85-5.65) 01/30/25 04:52 Hgb 13.10 g/dL (11.27-16.99) 01/30/25 04:52 Hct 41.5 % (36-47) 01/30/25 04:52 MCV 90.8 fl (85-98) 01/30/25 04:52 MCH 28.7 pg (27-33) 01/30/25 04:52 MCHC 31.6 g/dL (30-55) 01/30/25 04:52 RDW 12.8 % (12.1-15.1) 01/30/25 04:52 Plt Count 367 10^3/cmm (157-399) 01/30/25 04:52 MPV 11.3 fL (7.4-10.4) H 01/30/25 04:52 Neut % (Auto) 43.0 % 01/30/25 04:52 Lymph % (Auto) 46.0 % 01/30/25 04:52 [place] % (Auto) 7.3 % 01/30/25 04:52 Eos % (Auto) 2.5 % 01/30/25 04:52 Baso % (Auto) 1.0 % 01/30/25 04:52 Neut # (Auto) 2.60 10^3/uL (1.8-7.7) 01/30/25 04:52 Lymph # (Auto) 2.8 10^3/uL (0.8-4.8) 01/30/25 04:52 [place] # (Auto) 0.4 10^3/uL (0.2-0.9) 01/30/25 04:52 Eos # (Auto) 0.2 10^3/uL (0.0-0.8) 01/30/25 04:52 Baso # (Auto) 0.1 10^3/uL (0.0-0.1) 01/30/25 04:52 Nucleated RBC % (auto) 0 % 01/30/25 04:52 Nucleated RBCs # 0.0 /100WBC 01/30/25 04:52 Sodium 140 mmol/L (136-145) 01/30/25 04:52 Potassium 3.7 mmol/L (3.5-5.1) 01/30/25 04:52 Chloride 106 mmol/L (98-107) 01/30/25 04:52 Carbon Dioxide 24 mmol/L (22-29) 01/30/25 04:52 Anion Gap 13.7 (5-19) 01/30/25 04:52 BUN 16 mg/dL (6-20) 01/30/25 04:52 Creatinine 0.8 mg/dL (0.5-0.9) 01/30/25 04:52 GFR Calculation 74.5 mL/min (90-130) L 01/30/25 04:52 Glucose 91 mg/dL (65-115) 01/30/25 04:52 Calculated Osmolality 291 mOsm/kg (285-295) 01/30/25 04:52 Calcium 8.0 mg/dL (8.5-10.5) L 01/30/25 04:52 Phosphorus 3.7 mg/dL (2.5-4.5) 01/30/25 04:52 Magnesium 2.0 mg/dL (1.7-2.3) 01/30/25 04:52 Total Bilirubin 0.2 mg/dL (0.15-1.2) 01/30/25 04:52 AST 9 U/L (0-32) 01/30/25 04:52 ALT 8 U/L (0-33) 01/30/25 04:52 Alkaline Phosphatase 87 U/L (35-105) 01/30/25 04:52 Troponin T Baseline < 6 ng/L (0-10) 01/29/25 13:23 Troponin T 120 Minute < 6.0 ng/L (0-10) 01/29/25 15:08 Delta Troponin T 0 ABS# (0-10) 01/29/25 15:08 Total Protein 5.5 g/dL (6.6-8.7) L 01/30/25 04:52 Albumin 3.2 g/dL (3.5-5.2) L 01/30/25 04:52 Globulin 2.3 g/dL (1.3-4.6) 01/30/25 04:52 Vitamin B12 500 pg/mL (232-1245) 01/30/25 04:52 TSH 1.09 uIU/mL (0.27-4.20) 01/30/25 04:52 Urine Color Yellow (Yellow) 01/29/25 13:45 Urine Appearance Cloudy (CLEAR) A 01/29/25 13:45 Urine pH 6.0 (5-7) 01/29/25 13:45 Ur Specific [place] 1.018 (1.005-1.030) 01/29/25 13:45 Urine Protein Trace (Negative) A 01/29/25 13:45 Urine Glucose (UA) Negative (Normal) 01/29/25 13:45 Urine Ketones 2+ (Negative) H 01/29/25 13:45 Urine Blood Negative (Negative) 01/29/25 13:45 Urine Nitrate Negative (Negative) 01/29/25 13:45 Urine Bilirubin Negative (Negative) 01/29/25 13:45 Urine Urobilinogen 1.0 mg/dL (Negative) 01/29/25 13:45 Ur Leukocyte Esterase Negative (Negative) 01/29/25 13:45 Urine RBC 0-2 /hpf (0-2) 01/29/25 13:45 Urine WBC 0-5 /hpf (0-5) 01/29/25 13:45 Ur Squamous Epith Cells 11-20 /hpf (0-5) H 01/29/25 13:45 Amorphous Sediment Not Reportable 01/29/25 13:45 Urine Bacteria 1+ /hpf (NONE) H 01/29/25 13:45 Hyaline Casts 0.81 /lpf 01/29/25 13:45 Discharge Plan Discharge Patient Disposition: Placed in Observation Admit Provider: Emily Washington Clinical Impression: Vertigo, Atypical chest pain Discharge Diet: Usual diet Discharge Activity: Increase activity as tolerated Coding Level of Care Code ED Assessment Coordinator for Jacekg Gloria Documented by User: Heri Purvis MD 01/29/25 21:00 HPI - Chest Pain General: Chief Complaint: Chest Pain Stated Complaint: Chest Pain Time Seen by Provider: 01/29/25 12:35 Related Data Home Medications ?Medication ?Instructions ?Recorded ?Confirmed cholecalciferol (vitamin D3) 125 125 mcg PO DAILY 10/19/23 01/29/25 mcg (5,000 unit) tablet (Vitamin D3) calcium carbonate 500 mg PO DAILY 01/29/25 01/29/25 Previous Rx's ?Medication ?Instructions ?Recorded custom molded orthotic inserts #1 ea 07/26/22 cetirizine 10 mg tablet (Allergy 10 mg PO DAILY PRN Allergic 03/28/24 Relief (cetirizine)) Symptoms 90 days #90 tabs duloxetine 30 mg capsule,delayed 30 mg PO BID 90 days #180 caps 03/28/24 release famotidine 20 mg tablet 40 mg (2 x 20 mg) PO BID 90 days 03/28/24 #360 tabs ibuprofen 800 mg tablet See Rx Instructions .Route 03/28/24 .COMPLEX #90 tabs tizanidine 4 mg tablet 4 mg PO BID PRN muscle spasticity 03/28/24 #60 tabs Tirosint 100 mcg capsule 100 mcg PO DAILY #90 caps 07/12/24 (levothyroxine) alendronate 70 mg tablet See Rx Instructions .Route 10/29/24 .COMPLEX #12 tabs promethazine 25 mg tablet 25 mg PO Q6H PRN N/V #30 tabs 12/05/24 leflunomide 20 mg tablet 20 mg PO DAILY #30 tabs 01/24/25 lorazepam 1 mg tablet (Ativan) 1 mg PO Q6H PRN dizziness or 01/29/25 vertigo #10 tabs Allergies Allergy/AdvReac Type Severity Reaction Status Date / Time codeine Allergy Severe Hives Verified 01/29/25 12:45 latex Allergy Severe blistering Verified 01/29/25 12:45 oxycodone (From OxyContin) Allergy Severe Blackout Verified 01/29/25 12:45 Penicillins Allergy Severe Throat Verified 01/29/25 12:45 closed adhesive Allergy Unknown Verified 01/29/25 12:45 celecoxib (From Celebrex) Allergy Unknown Verified 01/29/25 12:45 clindamycin Allergy ADR-Vomitin Verified 01/29/25 12:45 g egg Allergy inflammatio Verified 01/29/25 12:45 n gluten Allergy inflammatio Verified 01/29/25 12:45 n red dye Allergy ADR-Vomitin Verified 01/29/25 12:45 g methotrexate AdvReac Intermediate ADR-Gastrointestinal Verified 01/29/25 12:45 Upset gabapentin AdvReac RADIOLOGY PHYSICIAN ASSISTANT Verified 01/29/25 12:45 EFFECTS- BURNING NERVE PAIN pregabalin AdvReac RADIOLOGY PHYSICIAN ASSISTANT EFFECTS Verified 01/29/25 12:45 sulfamethoxazole (From AdvReac ADR-Headach Verified 01/29/25 12:45 Bactrim) e tramadol AdvReac N/V Verified 01/29/25 12:45 trimethoprim (From Bactrim) AdvReac ADR-Headach Verified 01/29/25 12:45 e Steroids AdvReac Intermediate ADR-Rash Uncoded 01/29/25 11:08 PFSH ED PFSH: Medical History Degenerative joint disease (DJD) of lumbar spine Immunization counseling High risk medication use Inflammatory arthritis Pseudoarthrosis Long-term current use of opiate analgesic Pain management contract signed Allergies Flank pain Cauda equina compression 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, lumbar region Tobacco abuse Postlaminectomy syndrome of lumbosacral region Surgical History S/P cervical spinal fusion (~06/15/06) History of appendectomy (~1989) History of cholecystectomy (~1994) H/O: hysterectomy (~1993) History of lumbar fusion (~05/10/11) Family History Mother Diabetes Hypertension Sister Hypertension Father Hypertension Denies family history of Colon cancer Ovarian cancer Heart disease Hypercholesteremia Breast cancer Uterine cancer Thyroid disease Stroke Social History Smoking and tobacco/nicotine status: unknown if used tobacco/nicotine Substance/Drug Use: never Course Vital Signs: Vital signs: Vital Signs Temperature 97.6 F 01/31/25 07:36 Pulse Rate 68 01/31/25 07:36 Respiratory Rate 16 01/31/25 07:36 Blood Pressure 132/82 01/31/25 07:36 Pulse Oximetry 95 01/31/25 07:36 Oxygen Delivery Me thod Room Air 01/31/25 07:36 MDM - Chest Pain Medical Decision Making Dr. Pruvis: Patient signed out to me at time of shift change with plan for patient to be discharged. Nursing staff asked me to come and evaluate the patient as she does not feel comfortable with discharge. She cites ongoing dizziness with any motion of the head. She has already received Ativan. She remarks that prior to onset of dizziness she had sinus congestion and what she thought was allergies. She already underwent CTA of the head and neck which did not show evidence of cerebellar stroke. Symptoms do fatigue when she closes her eyes and holds her head still after roughly 5 to 10 seconds. I strongly suspect BPPV to be the cause of her dizziness. EKG and remainder of workup are reassuring without evidence of ACS or other emergent process. She is tearful describing her symptoms. We discussed that she most likely suffering from BPPV and I will give her an oral dose of meclizine and reassess her dizziness. After meclizine, she continues to have symptomsconsistent with BPPV. Diazepam was given orally. Given her ongoing instability with gait, she will be admitted to the hospital service observation status. I spoke with Dr. Washington who graciously agrees to admission Lab Data 01/31/25 04:44 01/31/25 04:44 Radiology Impressions Chest X-Ray 01/29/25 12:40 IMPRESSION: 1. Negative chest. Head CT 01/29/25 12:40 IMPRESSION: 1. No evidence of intracranial hemorrhage or mass effect. 2. No acute intracranial findings. Head/Neck CTA 01/29/25 15:50 IMPRESSION: No large vessel stenosis or occlusion. IMPRESSION: No stenosis or occlusion. REFERENCES: NASCET CRITERIA. The degree of stenosis in the cervical segment of the internal carotid artery is based on NASCET criteria. Normal is no stenosis. Mild is less than 50% stenosis. Moderate is 50-69% stenosis. Severe is 70% to 99% stenosis. Total occlusion is no detectable patent lumen. Head MRI 01/30/25 14:16 IMPRESSION: No acute intracranial abnormality. Laboratory Results WBC 6.04 10^3/uL (3.29-11.43) 01/30/25 04:52 RBC 4.57 10^6/uL (3.85-5.65) 01/30/25 04:52 Hgb 13.10 g/dL (11.27-16.99) 01/30/25 04:52 Hct 41.5 % (36-47) 01/30/25 04:52 MCV 90.8 fl (85-98) 01/30/25 04:52 MCH 28.7 pg (27-33) 01/30/25 04:52 MCHC 31.6 g/dL (30-55) 01/30/25 04:52 RDW 12.8 % (12.1-15.1) 01/30/25 04:52 Plt Count 367 10^3/cmm (157-399) 01/30/25 04:52 MPV 11.3 fL (7.4-10.4) H 01/30/25 04:52 Neut % (Auto) 43.0 % 01/30/25 04:52 Lymph % (Auto) 46.0 % 01/30/25 04:52 [place] % (Auto) 7.3 % 01/30/25 04:52 Eos % (Auto) 2.5 % 01/30/25 04:52 Baso % (Auto) 1.0 % 01/30/25 04:52 Neut # (Auto) 2.60 10^3/uL (1.8-7.7) 01/30/25 04:52 Lymph # (Auto) 2.8 10^3/uL (0.8-4.8) 01/30/25 04:52 [place] # (Auto) 0.4 10^3/uL (0.2-0.9) 01/30/25 04:52 Eos # (Auto) 0.2 10^3/uL (0.0-0.8) 01/30/25 04:52 Baso # (Auto) 0.1 10^3/uL (0.0-0.1) 01/30/25 04:52 Nucleated RBC % (auto) 0 % 01/30/25 04:52 Nucleated RBCs # 0.0 /100WBC 01/30/25 04:52 Sodium 140 mmol/L (136-145) 01/30/25 04:52 Potassium 3.7 mmol/L (3.5-5.1) 01/30/25 04:52 Chloride 106 mmol/L (98-107) 01/30/25 04:52 Carbon Dioxide 24 mmol/L (22-29) 01/30/25 04:52 Anion Gap 13.7 (5-19) 01/30/25 04:52 BUN 16 mg/dL (6-20) 01/30/25 04:52 Creatinine 0.8 mg/dL (0.5-0.9) 01/30/25 04:52 GFR Calculation 74.5 mL/min (90-130) L 01/30/25 04:52 Glucose 91 mg/dL (65-115) 01/30/25 04:52 Calculated Osmolality 291 mOsm/kg (285-295) 01/30/25 04:52 Calcium 8.0 mg/dL (8.5-10.5) L 01/30/25 04:52 Phosphorus 3.7 mg/dL (2.5-4.5) 01/30/25 04:52 Magnesium 2.0 mg/dL (1.7-2.3) 01/30/25 04:52 Total Bilirubin 0.2 mg/dL (0.15-1.2) 01/30/25 04:52 AST 9 U/L (0-32) 01/30/25 04:52 ALT 8 U/L (0-33) 01/30/25 04:52 Alkaline Phosphatase 87 U/L (35-105) 01/30/25 04:52 Troponin T Baseline < 6 ng/L (0-10) 01/29/25 13:23 Troponin T 120 Minute < 6.0 ng/L (0-10) 01/29/25 15:08 Delta Troponin T 0 ABS# (0-10) 01/29/25 15:08 Total Protein 5.5 g/dL (6.6-8.7) L 01/30/25 04:52 Albumin 3.2 g/dL (3.5-5.2) L 01/30/25 04:52 Globulin 2.3 g/dL (1.3-4.6) 01/30/25 04:52 Vitamin B12 500 pg/mL (232-1245) 01/30/25 04:52 TSH 1.09 uIU/mL (0.27-4.20) 01/30/25 04:52 Urine Color Yellow (Yellow) 01/29/25 13:45 Urine Appearance Cloudy (CLEAR) A 01/29/25 13:45 Urine pH 6.0 (5-7) 01/29/25 13:45 Ur Specific [place] 1.018 (1.005-1.030) 01/29/25 13:45 Urine Protein Trace (Negative) A 01/29/25 13:45 Urine Glucose (UA) Negative (Normal) 01/29/25 13:45 Urine Ketones 2+ (Negative) H 01/29/25 13:45 Urine Blood Negative (Negative) 01/29/25 13:45 Urine Nitrate Negative (Negative) 01/29/25 13:45 Urine Bilirubin Negative (Negative) 01/29/25 13:45 Urine Urobilinogen 1.0 mg/dL (Negative) 01/29/25 13:45 Ur Leukocyte Esterase Negative (Negative) 01/29/25 13:45 Urine RBC 0-2 /hpf (0-2) 01/29/25 13:45 Urine WBC 0-5 /hpf (0-5) 01/29/25 13:45 Ur Squamous Epith Cells 11-20 /hpf (0-5) H 01/29/25 13:45 Amorphous Sediment Not Reportable 01/29/25 13:45 Urine Bacteria 1+ /hpf (NONE) H 01/29/25 13:45 Hyaline Casts 0.81 /lpf 01/29/25 13:45 All radiology interpretation(s) finalized by discharge EKG Data EKG 1: Interpretation: Time?1926?sinus rhythm with sinus arrhythmia, rate of 70, no ST segment elevation or depression, no T wave versions, QTc = 418. Discharge Plan Discharge Patient Disposition: Placed in Observation Admit Provider: Emily Washington Clinical Impression: Vertigo, Atypical chest pain Discharge Diet: Usual diet Discharge Activity: Increase activity as tolerated Coding Level of Care Code ED Assessment Coordinator for Chg Gloria
[2025-01-29] MEDS: LORazepam 1 MG/0.5 ML injection 2 MG IVP (13:29)
[2025-01-29 13:34] LABS: Hematocrit 49.3 % (36-47); Hemoglobin 16.10 g/dL (11.27-16.99); Mean Corpuscular HGB Conc 32.7 g/dL (30-55); Mean Corpuscular Hemoglobin 29.4 pg (27-33); Mean Corpuscular Volume 90.1 fl (85-98); Nucleated Red Blood Cells % 0 %; Platelet Count 417 10^3/cmm (157-399); Red Blood Count 5.47 10^6/uL (3.85-5.65); White Blood Count 7.54 10^3/uL (3.29-11.43)
[2025-01-29 13:49] LABS: Troponin(5th) Baseline < 6 ng/L (0-10)
[2025-01-29 13:59] LABS: Glucose Urine UA Negative (Normal); Nitrate Urine Negative (Negative); Specific Gravity, Urine 1.018 (1.005-1.030)
[2025-01-29 14:04] LABS: Add Urine Microscopic? YES
[2025-01-29 14:08] LABS: Alanine Aminotransferase 10 U/L (0-33); Albumin Level 4.2 g/dL (3.5-5.2); Alkaline Phosphatase 104 U/L (35-105); Anion Gap 16.7 (5-19); Aspartate Amino Transferase 13 U/L (0-32); Blood Urea Nitrogen 12 mg/dL (6-20); Calcium 9.3 mg/dL (8.5-10.5); Carbon Dioxide 22 mmol/L (22-29); Chloride 103 mmol/L (98-107); Creatinine Clr Calc Pharmacy 86.1396; Globulin 2.6 g/dL (1.3-4.6); Glucose 95 mg/dL (65-115); Osmolality Calculated 284 mOsm/kg (285-295); Potassium 4.7 mmol/L (3.5-5.1); Sodium 137 mmol/L (136-145); Total Protein 6.8 g/dL (6.6-8.7)
--- NOTE | 2025-01-29 15:29 | ECG_ITS ---
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 Measurements Intervals [place] Rate: 77 P: 58 MO: 160 QRS: 93 QRSD: 84 T: 62 QT: 379 QTc: 431 Interpretive Statements SINUS RHYTHM POSSIBLE LEFT ATRIAL ENLARGEMENT [-0.1mV P-WAVE IN V1/V2] BORDERLINE RIGHT AXIS DEVIATION [QRS AXIS > 90] POSSIBLE RIGHT VENTRICULAR CONDUCTION DELAY [RSR (QR) IN V1/V2] Compared to ECG 01/29/2025 12:34:47 No significant changes Electronically Signed On 01-29-2025 22:44:12 CDT by Sylvester Mazariegos M.D. [email or web address]
[2025-01-29 15:48] LABS: Troponin 5 2HR < 6.0 ng/L (0-10); Troponin 5 2HR Delta 0 ABS# (0-10)
--- NOTE | 2025-01-29 15:50 | CTR_ITS ---
PROCEDURE INFORMATION: Exam: CTA Head With Contrast, Arteriography Exam date and time: 01/29/2025 4:00 PM Age: 54 years old Clinical indication: Pain; Headache; Additional info: Dizziness persistent headache TECHNIQUE: Imaging protocol: Computed tomographic angiography of the head with contrast. Exam focused on the arteries. 3D rendering (Not supervised by radiologist): MIP and/or 3D reconstructed images were created by the technologist. Radiation optimization: All CT scans at this facility use at least one of these dose optimization techniques: automated exposure control; mA and/or kV adjustment per patient size (includes targeted exams where dose is matched to clinical indication); or iterative reconstruction. Contrast material: OMNIPAQUE 350; Contrast volume: 100 ml; Contrast route: INTRAVENOUS (IV); COMPARISON: CT head wo con* [id number] 01/29/2025 12:53 PM RADIATION DOSE METRICS: Total DLP (mGy-cm): 424.12 FINDINGS: ANTERIOR CIRCULATION: Right internal carotid artery: Intracranial segment is patent with no significant stenosis. No aneurysm. Right middle cerebral artery: No occlusion or significant stenosis. No aneurysm. Right anterior cerebral artery: No occlusion or significant stenosis. No aneurysm. Left internal carotid artery: Intracranial segment is patent with no significant stenosis. No aneurysm. Left middle cerebral artery: No occlusion or significant stenosis. No aneurysm. Left anterior cerebral artery: No occlusion or significant stenosis. No aneurysm. POSTERIOR CIRCULATION: Right vertebral artery: No occlusion or significant stenosis. No aneurysm. Left vertebral artery: No occlusion or significant stenosis. No aneurysm. Basilar artery: No occlusion or significant stenosis. No aneurysm. Right posterior cerebral artery: No occlusion or significant stenosis. No aneurysm. Left posterior cerebral artery: No occlusion or significant stenosis. No aneurysm. Brain: No definite mass, mass effect, or midline shift. Cerebral ventricles: No ventriculomegaly. Bones/joints: Unremarkable. No acute fracture. Soft tissues: Unremarkable. PROCEDURE INFORMATION: Exam: CTA Neck With Contrast Exam date and time: 01/29/2025 4:00 PM Age: 54 years old Clinical indication: Pain; Headache; Additional info: Dizziness persistent headache TECHNIQUE: Imaging protocol: Computed tomographic angiography of the neck with contrast. Exam focused on the cervical segments of the vasculature. 3D rendering (Not supervised by radiologist): MIP and/or 3D reconstructed images were created by the technologist. Radiation optimization: All CT scans at this facility use at least one of these dose optimization techniques: automated exposure control; mA and/or kV adjustment per patient size (includes targeted exams where dose is matched to clinical indication); or iterative reconstruction. Contrast material: OMNIPAQUE 350; Contrast volume: 100 ml; Contrast route: INTRAVENOUS (IV); COMPARISON: MR cervical spin wo con* [id number] 04/26/2023 10:29 AM RADIATION DOSE METRICS: Total DLP (mGy-cm): 424.12 FINDINGS: Right common carotid artery: No stenosis. No dissection or occlusion. Right internal carotid artery: No stenosis of the extracranial segment. No dissection or occlusion. Right external carotid artery: No occlusion or stenosis of the origin. Left common carotid artery: No stenosis. No dissection or occlusion. Left internal carotid artery: No stenosis of the extracranial segment. No dissection or occlusion. Left external carotid artery: No occlusion or stenosis of the origin. Right vertebral artery: No stenosis. No dissection or occlusion. Left vertebral artery: No stenosis. No dissection or occlusion. Soft tissues: Normal. No significant soft tissue swelling. Bones/joints: No acute fracture. CT/CT angio headneck* [id number] IMPRESSION: No large vessel stenosis or occlusion. IMPRESSION: No stenosis or occlusion. REFERENCES: NASCET CRITERIA. The degree of stenosis in the cervical segment of the internal carotid artery is based on NASCET criteria. Normal is no stenosis. Mild is less than 50% stenosis. Moderate is 50-69% stenosis. Severe is 70% to 99% stenosis. Total occlusion is no detectable patent lumen.
[2025-01-29] MEDS: iohexol 350 mg/mL 500 mL Btl (per mL) IV (16:03)
--- NOTE | 2025-01-29 18:40 | ECG_ITS ---
[email or web address] Date: 2025-01-29 Pat Name: Kath Tang Department: Room: Gender: Female Viner Operator: : 1970 Requested By: Mian Santana Order Number: [id number] Tianna MD: Sylvester Mazariegos M.D. Measurements Intervals [place] Rate: 70 P: 59 OR: 173 QRS: 93 QRSD: 86 T: 66 QT: 396 QTc: 430 Interpretive Statements SINUS RHYTHM WITH SINUS ARRHYTHMIA BORDERLINE RIGHT AXIS DEVIATION [QRS AXIS > 90] POSSIBLE RIGHT VENTRICULAR CONDUCTION DELAY [RSR (QR) IN V1/V2] Compared to ECG 01/29/2025 15:29:00 No significant changes Electronically Signed On 01-29-2025 22:36:38 CDT by Sylvester Mazariegos M.D. [id number] [id number]
--- NOTE | 2025-01-29 22:02 | P.HP_ITS ---
Providers/Chief Complaint 2 Admitting Physician: Emily Washington MD--seen and evaluated before midnight Primary Care Provider: Tesha Chance MD Chief Complaint: Chest Pain/dizziness upon turning head/falls History of Present Illness September Kitty is a 54 year old female with medical history significant for labyrinthitis due to inner ear infection with associated benign positional vertigo some 10 years ago. Other than that patient had not had any vertigo till now. Patient now is presenting with ongoing severe dizziness upon turning the head left to right causing her to fall twice at home prior to coming to the emergency room because the dizziness was very profound even inducing her to have nausea and vomiting at home. When patient experienced dizziness patient will have parasympathetic symptoms with nausea and vomiting and at the time of vomiting patient will feel chest pain and shortness of breath likely due to microaspiration of the vomitus into the bronchioles inducing bronchial spasm. Patient was seen earlier by Dr. Espinosa who did an extensive workup with CTA of the head and neck to make sure patient is not having posterior circulation problem. Those studies were normal. Patient had received some medication for what looks like a benign positional vertigo and that was discharged to go home. Patient never left the emergency room because she was having still high-grade dizziness to where she feels like she is going to fall. Dr. Purvis took over the care and called me to evaluate patient for admission. I have seen and evaluated patient patient is profoundly dizzy room spinning unable to open eyes because of profound dizziness patient will feel dizzy upon turning head. Patient indeed has benign positional vertigo. I will admit patient under observation optimize for possible discharge home when medically stable tomorrow. I have initiated IV fluid with normal saline at 100 mL/h gentle hydration. I have initiated meclizine and muscle relaxer with Valium. Patient is combination of therapy should get patient better within 24 hours to go home. Patient is not having posterior circulation issues. Patient had been admitted to general medical floor with telemetry Review of Systems 2 Narrative: System review upon 10 organ reviewed were entirely unremarkable except for peripheral vertigo with balance problem. Medications/Allergies Home Medications ?Medication ?Instructions ?Recorded ?Confirmed ?Last Taken ?Type custom molded orthotic inserts #1 ea 07/26/22 01/29/25 Unknown Rx cholecalciferol (vitamin D3) 125 125 mcg PO DAILY 10/0301/29/25 01/28/25 09:00 History mcg (5,000 unit) tablet (Vitamin D3) cetirizine 10 mg tablet (Allergy 10 mg PO DAILY PRN Al lergic 03/28/24 01/29/25 Unknown Rx Relief (cetirizine)) Symptoms 90 days #90 tabs duloxetine 30 mg capsule,delayed 30 mg PO BID 90 days #180 caps 03/28/24 01/29/25 01/28/25 09:00 Rx release famotidine 20 mg tablet 40 mg (2 x 20 mg) PO BID 90 days 03/28/24 01/29/25 Unknown Rx #360 tabs ibuprofen 800 mg tablet See Rx Instructions .Route 1 01/29/25 01/28/25 20:00 Rx .COMPLEX #90 tabs tizanidine 4 mg tablet 4 mg PO BID PRN muscle spast icity 03/28/24 01/29/25 Unknown Rx #60 tabs Tirosint 100 mcg capsule 100 mcg PO DAILY #90 caps 01/29/25 01/28/25 08:00 Rx (levothyroxine) alendronate 70 mg tablet See Rx Instructions .Route 0 10/29/24 01/29/25 01/26/25 Rx .COMPLEX #12 tabs promethazine 25 mg tablet 25 mg PO Q6H PRN N/V #30 tab s 12/05/24 01/29/25 Unknown Rx leflunomide 20 mg tablet 20 mg PO DAILY #30 tabs 01/0401/29/25 Unknown Rx calcium carbonate 500 mg PO DAILY 01/29/2501/28/25 09:00 History lorazepam 1 mg tablet (Ativan) 1 mg PO Q6H PRN dizzine ss or 01/29/25 Unknown Rx vertigo #10 tabs Allergies Allergy/AdvReac Type Severity Reaction Status Date / Time codeine Allergy Severe Hives Verified 01/29/25 12:45 latex Allergy Severe blistering Verified 01/29/25 12:45 oxycodone (From OxyContin) Allergy Severe Blackout Verified 01/29/25 12:45 Penicillins Allergy Severe Throat Verified 01/29/25 12:45 closed adhesive Allergy Unknown Verified 01/29/25 12:45 celecoxib (From Celebrex) Allergy Unknown Verified 01/29/25 12:45 clindamycin Allergy ADR-Vomitin Verified 01/29/25 12:45 g egg Allergy inflammatio Verified 01/29/25 12:45 n gluten Allergy inflammatio Verified 01/29/25 12:45 n red dye Allergy ADR-Vomitin Verified 01/29/25 12:45 g methotrexate AdvReac Intermediate ADR-Gastrointestinal Verified 01/29/25 12:45 Upset gabapentin AdvReac QUALITY ASSURANCE MONITOR BODY Verified 01/29/25 12:45 EFFECTS- BURNING NERVE PAIN pregabalin AdvReac QUALITY ASSURANCE MONITOR BODY EFFECTS Verified 01/29/25 12:45 sulfamethoxazole (From AdvReac ADR-Headach Verified 01/29/25 12:45 Bactrim) e tramadol AdvReac N/V Verified 01/29/25 12:45 trimethoprim (From Bactrim) AdvReac ADR-Headach Verified 01/29/25 12:45 e Steroids AdvReac Intermediate ADR-Rash Uncoded 01/29/25 11:08 PFSH Acute 2 PFSH: Medical History Degenerative joint disease (DJD) of lumbar spine Immunization counseling High risk medication use Inflammatory arthritis Pseudoarthrosis Long-term current use of opiate analgesic Pain management contract signed Allergies Flank pain Cauda equina compression 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, lumbar region Tobacco abuse Postlaminectomy syndrome of lumbosacral region Surgical History S/P cervical spinal fusion (~06/15/06) History of appendectomy (~1989) History of cholecystectomy (~1994) H/O: hysterectomy (~1993) History of lumbar fusion (~05/10/11) Family History Mother Diabetes Hypertension Sister Hypertension Father Hypertension Denies family history of Colon cancer Ovarian cancer Heart disease Hypercholesteremia Breast cancer Uterine cancer Thyroid disease Stroke Social History Smoking and tobacco/nicotine status: unknown if used tobacco/nicotine Substance/Drug Use: never Female Reproductive History: Spontaneous abortions: No Vitals/I&O/Wt Last Vital Signs Temp 98.5 F 01/29/25 12:35 Pulse 60 01/29/25 21:46 Resp 16 01/29/25 21:46 BP 135/88 01/29/25 21:46 Pulse Ox 91 01/29/25 21:46 O2 Del Method Room Air 01/29/25 21:36 01/29/25 01/29/25 01/29/25 06:59 14:59 22:59 Intake Total 150 / 150 1000 / 1150 Balance 150 / 150 1000 / 1150 Weight last 48 hrs Weight 83.489 kg Weight 83.506 kg Weight 86.183 kg Physical Exam 2 Narrative: General The patient is laying flat in bed scared to turn head expressing concern about falls upon getting up. HEENT normocephalic atraumatic neck neck is supple cardiovascular heart rate is regular lungs are pretty much clear abdomen soft nontender nondistended unremarkable extremities are intact no edema has good pulses neurology has no focality lab studies lab studies reviewed and noted. Data 01/29/25 13:23 01/29/25 13:23 A&P Assessment and plan 1. Atypical chest pain: 2. Vertigo: 3. Degenerative joint disease (DJD) of lumbar spine: 4. Nausea and vomitin. Multiple falls: Plan: #1 Atypical chest pain - Chest pain happens at the time of patient's nausea and vomiting with associated shortness of breath - Patient experienced this atypical chest pain due to microaspiration of vomitus into the bronchial inducing Bronchial spasm leading to some chest pain and shortness of breath and that is done soon after vomiting Resolves. Troponin is less than 6 Patient had received full aspirin earlier in the emergency room #2 Benign positional vertigo - Initiated IV normal saline at a gentle rate of 100 mL/h - Meclizine initiated at every 8 hours - Muscle relaxer with Valium initiated as well per order #3 Nausea and vomiting induced by benign positional vertigo - Antiemetic in place - Continue IV normal saline as ordered #4 Multiple falls at home prior to presenting to the emergency room - Patient is a fall risk will initiate plan to avoid or decrease any chances of falls - Patient must ask for help upon getting out of bed. Must be guided. #5 GI and DVT prophylaxis in place PDMP PDMP Reviewed: Last Reviewed 01/29/25 22:18 by Emily Washington MD Attestations 2 Medical Necessity Statement*: Patient meets observation criteria now for 23 hours stay in the hospital to optimize benign positional vertigo or else patient will run the risk of falling and most likely breaking the hip. Coding Level of Care Code 27763 Diagnoses Atypical chest pain R07.89 Vertigo R42 Degenerative joint disease (DJD) of lumbar spine M47.816 Nausea and vomiting R11.2 Multiple falls R29.6 Time Spent (min) 60
[2025-01-29] MEDS: heparin 5,000 unit/mL INJ 1 mL 5000 UNIT SUBCUT (22:22)
[2025-01-30 04:00] VITALS: BP 124/72; PULSE 70; RESP 17; TEMP 36.8
[2025-01-30 05:43] LABS: Hematocrit 41.5 % (36-47); Hemoglobin 13.10 g/dL (11.27-16.99); Mean Corpuscular HGB Conc 31.6 g/dL (30-55); Mean Corpuscular Hemoglobin 28.7 pg (27-33); Mean Corpuscular Volume 90.8 fl (85-98); Nucleated Red Blood Cells % 0 %; Platelet Count 367 10^3/cmm (157-399); Red Blood Count 4.57 10^6/uL (3.85-5.65); White Blood Count 6.04 10^3/uL (3.29-11.43)
[2025-01-30 06:03] LABS: Alanine Aminotransferase 8 U/L (0-33); Albumin Level 3.2 g/dL (3.5-5.2); Alkaline Phosphatase 87 U/L (35-105); Anion Gap 13.7 (5-19); Aspartate Amino Transferase 9 U/L (0-32); Blood Urea Nitrogen 16 mg/dL (6-20); Calcium 8.0 mg/dL (8.5-10.5); Carbon Dioxide 24 mmol/L (22-29); Chloride 106 mmol/L (98-107); Creatinine Clr Calc Pharmacy 84.7879; Globulin 2.3 g/dL (1.3-4.6); Glucose 91 mg/dL (65-115); Magnesium 2.0 mg/dL (1.7-2.3); Osmolality Calculated 291 mOsm/kg (285-295); Potassium 3.7 mmol/L (3.5-5.1); Sodium 140 mmol/L (136-145); Total Protein 5.5 g/dL (6.6-8.7)
[2025-01-30 07:23] VITALS: BP 114/75; PULSE 74; RESP 16; TEMP 36.8; O2SAT 92
[2025-01-30] MEDS: heparin 5,000 unit/mL INJ 1 mL 5000 UNIT SUBCUT ×2 (11:32→20:55)
[2025-01-30 11:51] VITALS: BP 112/67; PULSE 64; RESP 16; TEMP 36.4; O2SAT 92
--- NOTE | 2025-01-30 14:16 | MRR_ITS ---
PROCEDURE INFORMATION: Exam: MR Head Without Contrast Exam date and time: 01/30/2025 4:50 PM Age: 54 years old Clinical indication: Dizziness; Additional info: Patient having dizziness to rule out posterior stroke, diffusion-weighted for posterior circulation stroke TECHNIQUE: Imaging protocol: Magnetic resonance imaging of the head without contrast. COMPARISON: CT angio headneck* [id number] 01/29/2025 4:00 PM FINDINGS: Brain: Normal. No acute infarct. No hemorrhage. No significant white matter disease. No edema. Cerebral ventricles: Normal. No ventriculomegaly. Bones: Unremarkable. Paranasal sinuses: Normal as visualized. No acute sinusitis. Mastoid air cells: Normal as visualized. No mastoid effusion. Orbital cavities: Unremarkable. Soft tissues: Unremarkable. MR/MR head wo con* [id number] IMPRESSION: No acute intracranial abnormality.
--- NOTE | 2025-01-30 14:53 | P.PN_ITS ---
Subjective 2 Subjective: the patient was seen in the morning and was having nausea and neck pain that limited her activity with OT/PT she is still dizzy and unable to move much around. however no focal deficit. Vitals/I&O/Wt Last Vital Signs Temp 97.6 F 01/30/25 11:51 Pulse 64 01/30/25 11:51 Resp 16 01/30/25 11:51 BP 112/67 01/30/25 11:51 Pulse Ox 92 01/30/25 11:51 O2 Del Method Room Air 01/30/25 11:51 01/29/25 01/30/25 01/30/25 22:59 06:59 14:59 Intake Total 1000 / 1150 1711.667 / 1711.667 Balance 1000 / 1150 1711.667 / 1711.667 Weight last 48 hrs Weight 83.489 kg Weight 83.489 kg Weight 83.506 kg Weight 86.183 kg Physical Exam 2 Narrative: General: Alert oriented x3, patient seen and in mild distress due to neck pain and dizziness HEENT: Normocephalic, atraumatic, EOMI, breathing on room air Cardio: Regular rate rhythm, normal S1-S2, no murmurs rubs gallops, JVD normal Respiratory: Good bilateral air entry, no wheezes no rhonchi appreciated GI: Abdomen soft, nontender, nondistended, normoactive bowel sounds present all 4 quadrants, Neuro: Cranial nerves II to XII intact, strength 5/5, sensation 5/5, no gross neurological deficit, having mild physiological nystagmus horizontally, but no photophobia or any aura Behavior: Appropriate and cooperative Extremities: Pulses 2+, no edema, no cyanosis Skin: Visible skin intact, no rashes Data 01/30/25 04:52 01/30/25 04:52 A&P Assessment and plan 1. Atypical chest pain: 2. Vertigo: 3. Spondylosis of lumbar region without myelopathy or radiculopathy: 4. Nausea and vomitin. Multiple falls: 6. High risk medication use: 7. Inflammatory arthritis: 8. Carmen's disease: Plan: Atypical chest pain - Troponin rise not significant - Patient having atypical chest pain secondary to continuous nausea and vomiting with headache -Continue to monitor vertigo and dizziness: having neck pain - MRI brain to rule out posterior stroke - OT/PT evaluation and ENT at the time of discharge - Initiated IV normal saline at a gentle rate of 100 mL/h - Meclizine initiated at every 8 hours -Neurochecks Q4 hourly - Muscle relaxer with Valium initiated as well per order Multiple falls: - Patient is a fall risk will initiate plan to avoid or decrease any chances of falls - OT/PT evaluation -Vitamin B12 and B1 Hypothyroidism: Continue home dose of [id number] mcg daily TSH Inflammatory arthritis: Continue on home medication leflunomide 20 mg daily GI and DVT prophylaxis in place PDMP PDMP Reviewed: Not Reviewed Attestations 2 Medical Necessity Statement*: the patient will stay in the hospital for management of dizziness with further MRI brain and OT/PT evaluation Time Spent in Patient Care: 16 - 35 minutes (>than 50% of time sp ent in counselling and/or direct pt care on unit) . Other Attestations: Patient condition has been discussed at length with the patient/family, I have independently reviewed the chart labs imaging and diagnostics and EKG. the goals of care and code status with the patient/family/NOK/legal field service representative, and documented accordingly. The patient/family has been informed about the current condition and further plan of care. Agreed with the plan of care and understood without any language barrier. This documentation was created by [employer] satellite television installer software. Every effort was made to ensure accuracy of satellite television installer. Any obvious errors or omissions should be clarified with the author of the document. Coding Level of Care Code 74324 Diagnoses Atypical chest pain R07.89 Vertigo R42 Spondylosis of lumbar region without myelopathy or radiculopathy M47.816 Spinal osteoarthritis complication: without myelopathy or radiculopathy Nausea and vomiting R11.2 Multiple falls R29.6 High risk medication use Z79.899 Inflammatory arthritis M19.90 Carmen's disease E06.3
[2025-01-30 16:28] VITALS: BP 103/68; PULSE 71; RESP 16; TEMP 36.7; O2SAT 95
[2025-01-30 16:48] LABS: Thyroid Stimulating Hormone 1.09 uIU/mL (0.27-4.20); Vitamin B12 500 pg/mL (232-1245)
[2025-01-30 19:59] VITALS: BP 121/83; PULSE 80; RESP 16; TEMP 36.3; O2SAT 93
[2025-01-31] VITALS: BP 114/79; PULSE 67; RESP 16; TEMP 36.8; O2SAT 97
[2025-01-31 00:41] LABS: Glucose Urine UA Negative (Normal); Nitrate Urine Negative (Negative); Specific Gravity, Urine 1.010 (1.005-1.030)
[2025-01-31 00:44] LABS: Add Urine Microscopic? YES
[2025-01-31 04:00] VITALS: BP 105/63; PULSE 74; RESP 17; TEMP 36.4; O2SAT 97
[2025-01-31 05:07] LABS: Hematocrit 39.8 % (36-47); Hemoglobin 12.70 g/dL (11.27-16.99); Mean Corpuscular HGB Conc 31.9 g/dL (30-55); Mean Corpuscular Hemoglobin 28.9 pg (27-33); Mean Corpuscular Volume 90.5 fl (85-98); Nucleated Red Blood Cells % 0 %; Platelet Count 342 10^3/cmm (157-399); Red Blood Count 4.40 10^6/uL (3.85-5.65); White Blood Count 6.69 10^3/uL (3.29-11.43)
[2025-01-31 05:17] LABS: Alanine Aminotransferase 8 U/L (0-33); Albumin Level 3.3 g/dL (3.5-5.2); Alkaline Phosphatase 87 U/L (35-105); Anion Gap 11.8 (5-19); Aspartate Amino Transferase 12 U/L (0-32); Blood Urea Nitrogen 7 mg/dL (6-20); Calcium 8.1 mg/dL (8.5-10.5); Carbon Dioxide 26 mmol/L (22-29); Chloride 111 mmol/L (98-107); Creatinine Clr Calc Pharmacy 84.7879; Globulin 2.4 g/dL (1.3-4.6); Glucose 97 mg/dL (65-115); Osmolality Calculated 298 mOsm/kg (285-295); Potassium 3.8 mmol/L (3.5-5.1); Sodium 145 mmol/L (136-145); Total Protein 5.7 g/dL (6.6-8.7)
[2025-01-31 05:41] LABS: Slide Review Slide Review Perform
[2025-01-31 07:36] VITALS: BP 132/82; PULSE 68; RESP 16; TEMP 36.4; O2SAT 95
--- NOTE | 2025-01-31 09:59 | PC.CHAP ---
Pastoral Care Encounter/Spiritual Assessment Type of Contact [] Declined daily release and dupe printer visit [] Patient/Family/Request visit [] Outpatient visit [] Follow-up visit [] Physician referral [] Code/Alert [x] Routine visit [] Staff referral [] Actively dying [] Patient sleeping [] Family support [] [] Out of room [] Palliative care [] [] Receiving care in room [] Pre-surgical visit [] Trauma [] Long length of stay [] ICU visit [] Other: Relational/Emotional Strength [x] Patient feels connected with others/family/visitors/staff [] Distress [] Loneliness/isolation [] Abandonment Spirituality of Patient [x] Person of Alejandra [] Attends Sabianist of their Alejandra [x] Believes in Prayer [] Reads Bible or Cheondoism materials [] There are Spiritual issues to be addressed [employer] Interventions [x] Prayer [x] Active listening [x] Non-anxious presence [x] Spiritual/emotional support [] Crisis/trauma care [] Spiritual counseling [] Bereavement support [] Provided bereavement packet [] Provided Bible/devotional materials [] Provided toy/stuffed animal, coloring book to patient or family member [] Provided Communion [] Anointing/[place] [] Salvation [x] Completed spiritual assessment [] Other: Impact on Illness or Injury [] Angry [] Fearful [] Anxious [] Often cries [] Exhaustion [] Unable to work [] Unable to attend yarsanism [] Unable to walk/stand [] Unable to read [] Unable to drive [] Unable to eat/drink [] Unable to sleep [] Unable to be with family [] Patient intubated [] Other: Summary Time spent with patient 5 min
--- NOTE | 2025-01-31 10:29 | PC.SOCIAL ---
IMM Update pg 2 of IMM Updated and reviewed w/ patient. Copy provided and copy dated, initialed and placed in chart.
[2025-01-31 12:00] VITALS: BP 149/89; PULSE 71; RESP 16; TEMP 36.7
[2025-01-31 12:21] VITALS: BP 149/89; PULSE 71; RESP 16; TEMP 36.7; O2SAT 97
--- NOTE | 2025-01-31 13:16 | P.DS_ITS ---
Discharge Providers Date of Admission: 01/30/25 10:30 Date of Discharge: January 31, 2025 Attending Provider at Admission: Emily Washington MD Attending Provider at Discharge: Haroldo Jordan MD Primary Care Provider: Tesha Chance MD Diagnoses at Discharge Discharge Diagnosis 1. Atypical chest pain: 2. Vertigo: 3. Spondylosis of lumbar region without myelopathy or radiculopathy: 4. Nausea and vomitin. Multiple falls: 6. High risk medication use: 7. Inflammatory arthritis: 8. Carmen's disease: Reason for Visit Reason for Visit: Chest Pain/dizziness upon turning head/falls Brief History: September Kitty is a 54 year old female with medical history significant for labyrinthitis due to inner ear infection with associated benign positional vertigo some 10 years ago. Other than that patient had not had any vertigo till now. Patient now is presenting with ongoing severe dizziness upon turning the head left to right causing her to fall twice at home prior to coming to the emergency room because the dizziness was very profound even inducing her to have nausea and vomiting at home. When patient experienced dizziness patient will have parasympathetic symptoms with nausea and vomiting and at the time of vomiting patient will feel chest pain and shortness of breath likely due to microaspiration of the vomitus into the bronchioles inducing bronchial spasm. Patient was seen earlier by Dr. Espinosa who did an extensive workup with CTA of the head and neck to make sure patient is not having posterior circulation problem. Those studies were normal. Patient had received some medication for what looks like a benign positional vertigo and that was discharged to go home. Patient never left the emergency room because she was having still high-grade dizziness to where she feels like she is going to fall. Hospital Course Hospital Course The patient was admitted and further workup was done. Head CT scan involving the neck vascular vessels and MR head was done which did not show any acute pathology for her dizziness. There was no focal neurological deficit found on examination. Therefore after ruling out central causes the likely cause of her dizziness is peripheral. OT PT evaluation was provided and she was able to stand. She was managed with symptomatic management of her dizziness with meclizine. And her rest of the comorbidities were managed. Her hospital course was uncomplicated and to be discharged with rehab as outpatient and to follow-up with the ENT for her peripheral cause of vertigo/dizziness. Patient condition has been discussed at length with the patient/family, I have independently reviewed the chart labs imaging and diagnostics and EKG. 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 The patient/family has been informed about the current condition and further plan of care. Agreed with the plan of care and understood without any language barrier. This documentation was created by [employer] transcription typist software. Every effort was made to ensure accuracy of transcription typist. Any obvious errors or omissions should be clarified with the author of the document. Physical Exam Narrative: General: Alert oriented x3, patient seen, stable not in acute distress lying comfortably HEENT: Normocephalic, atraumatic, EOMI, breathing on room air Cardio: Regular rate rhythm, normal S1-S2, no murmurs rubs gallops, JVD normal Respiratory: Good bilateral air entry, no wheezes no rhonchi appreciated GI: Abdomen soft, nontender, nondistended, normoactive bowel sounds present all 4 quadrants, Neuro: Cranial nerves II to XII intact, strength 5/5, sensation 5/5, no gross neurological deficit, but no photophobia or any aura Behavior: Appropriate and cooperative Extremities: Pulses 2+, no edema, no cyanosis Skin: Visible skin intact, no rashes Discharge Data Studies Completed and Pending Completed Studies During Hospitalization Category Date Time Status CT head wo con* [id number] Stat Cat Scan 01/29/25 12:40 Completed CTA head neck [CT angio headneck* [id number]] Stat Cat Scan 01/29/25 15:50 Completed XR chest 1V portable [id number] Stat Exams 01/29/25 12:40 Completed MR head wo con* [id number] Routine MRI 01/30/25 14:16 Completed Pending at discharge Category Date Time Status Vitamin B1(Thiamin) Plas/Ser Routine Lab 01/30/25 15:52 Received Radiology Impressions Chest X-Ray 01/29/25 12:40 IMPRESSION: 1. Negative chest. Head CT 01/29/25 12:40 IMPRESSION: 1. No evidence of intracranial hemorrhage or mass effect. 2. No acute intracranial findings. Head/Neck CTA 01/29/25 15:50 IMPRESSION: No large vessel stenosis or occlusion. IMPRESSION: No stenosis or occlusion. REFERENCES: NASCET CRITERIA. The degree of stenosis in the cervical segment of the internal carotid artery is based on NASCET criteria. Normal is no stenosis. Mild is less than 50% stenosis. Moderate is 50-69% stenosis. Severe is 70% to 99% stenosis. Total occlusion is no detectable patent lumen. Head MRI 01/30/25 14:16 IMPRESSION: No acute intracranial abnormality. Laboratory Results WBC 6.69 10^3/uL (3.29-11.43) 01/31/25 04:44 RBC 4.40 10^6/uL (3.85-5.65) 01/31/25 04:44 Hgb 12.70 g/dL (11.27-16.99) 01/31/25 04:44 Hct 39.8 % (36-47) 01/31/25 04:44 MCV 90.5 fl (85-98) 01/31/25 04:44 MCH 28.9 pg (27-33) 01/31/25 04:44 MCHC 31.9 g/dL (30-55) 01/31/25 04:44 RDW 12.7 % (12.1-15.1) 01/31/25 04:44 Plt Count 342 10^3/cmm (157-399) 01/31/25 04:44 MPV 10.9 fL (7.4-10.4) H 01/31/25 04:44 Neut % (Auto) 40.8 % 01/31/25 04:44 Lymph % (Auto) 47.8 % 01/31/25 04:44 [place] % (Auto) 8.2 % 01/31/25 04:44 Eos % (Auto) 2.2 % 01/31/25 04:44 Baso % (Auto) 0.7 % 01/31/25 04:44 Neut # (Auto) 2.72 10^3/uL (1.8-7.7) 01/31/25 04:44 Lymph # (Auto) 3.2 10^3/uL (0.8-4.8) 01/31/25 04:44 [place] # (Auto) 0.6 10^3/uL (0.2-0.9) 01/31/25 04:44 Eos # (Auto) 0.2 10^3/uL (0.0-0.8) 01/31/25 04:44 Baso # (Auto) 0.1 10^3/uL (0.0-0.1) 01/31/25 04:44 Nucleated RBC % (auto) 0 % 01/31/25 04:44 Nucleated RBCs # 0.0 /100WBC 01/31/25 04:44 Sodium 145 mmol/L (136-145) 01/31/25 04:44 Potassium 3.8 mmol/L (3.5-5.1) 01/31/25 04:44 Chloride 111 mmol/L (98-107) H 01/31/25 04:44 Carbon Dioxide 26 mmol/L (22-29) 01/31/25 04:44 Anion Gap 11.8 (5-19) 01/31/25 04:44 BUN 7 mg/dL (6-20) 01/31/25 04:44 Creatinine 0.8 mg/dL (0.5-0.9) 01/31/25 04:44 GFR Calculation 74.5 mL/min (90-130) L 01/31/25 04:44 Glucose 97 mg/dL (65-115) 01/31/25 04:44 Calculated Osmolality 298 mOsm/kg (285-295) H 01/31/25 04:44 Calcium 8.1 mg/dL (8.5-10.5) L 01/31/25 04:44 Phosphorus 3.7 mg/dL (2.5-4.5) 01/30/25 04:52 Magnesium 2.0 mg/dL (1.7-2.3) 01/30/25 04:52 Total Bilirubin 0.2 mg/dL (0.15-1.2) 01/31/25 04:44 AST 12 U/L (0-32) 01/31/25 04:44 ALT 8 U/L (0-33) 01/31/25 04:44 Alkaline Phosphatase 87 U/L (35-105) 01/31/25 04:44 Troponin T Baseline < 6 ng/L (0-10) 01/29/25 13:23 Troponin T 120 Minute < 6.0 ng/L (0-10) 01/29/25 15:08 Delta Troponin T 0 ABS# (0-10) 01/29/25 15:08 Total Protein 5.7 g/dL (6.6-8.7) L 01/31/25 04:44 Albumin 3.3 g/dL (3.5-5.2) L 01/31/25 04:44 Globulin 2.4 g/dL (1.3-4.6) 01/31/25 04:44 Vitamin B12 500 pg/mL (232-1245) 01/30/25 04:52 TSH 1.09 uIU/mL (0.27-4.20) 01/30/25 04:52 Urine Color Yellow (Yellow) 01/31/25 00:30 Urine Appearance Clear (CLEAR) 01/31/25 00:30 Urine pH 6.0 (5-7) 01/31/25 00:30 Ur Specific [place] 1.010 (1.005-1.030) 01/31/25 00:30 Urine Protein Negative (Negative) 01/31/25 00:30 Urine Glucose (UA) Negative (Normal) 01/31/25 00:30 Urine Ketones Negative (Negative) 01/31/25 00:30 Urine Blood Negative (Negative) 01/31/25 00:30 Urine Nitrate Negative (Negative) 01/31/25 00:30 Urine Bilirubin Negative (Negative) 01/31/25 00:30 Urine Urobilinogen 0.2 mg/dL (Negative) 01/31/25 00:30 Ur Leukocyte Esterase Negative (Negative) 01/31/25 00:30 Urine RBC 0-2 /hpf (0-2) 01/31/25 00:30 Urine WBC 0-5 /hpf (0-5) 01/31/25 00:30 Ur Squamous Epith Cells 0-5 /hpf (0-5) 01/31/25 00:30 Amorphous Sediment Not Reportable 01/31/25 00:30 Urine Bacteria None seen /hpf (NONE) 01/31/25 00:30 Hyaline Casts 0.40 /lpf 01/31/25 00:30 Vitals Last Vital Signs Temp 98.0 F 01/31/25 12:21 Pulse 71 01/31/25 12:21 Resp 16 01/31/25 12:21 BP 149/89 01/31/25 12:21 Pulse Ox 97 01/31/25 12:21 O2 Del Method Nasal Cannula 01/31/25 12:21 Discharge Plan Discharge Patient Disposition: Home Condition: Stable Prescriptions: New lorazepam [Ativan] 1 mg tablet 1 mg PO Q6H PRN (Reason: dizziness or vertigo) Qty: 10 0RF meclizine 25 mg Tablet 25 mg PO TID 60 Days Qty: 180 0RF Continued cholecalciferol (vitamin D3) [Vitamin D3] 125 mcg (5,000 unit) tablet 125 mcg PO DAILY cetirizine [Allergy Relief (cetirizine)] 10 mg tablet 10 mg PO DAILY PRN (Reason: Allergic Symptoms) 90 Days Qty: 90 3RF ibuprofen 800 mg tablet See Rx Instructions .ROUTE .COMPLEX Qty: 90 5RF Dose Instruction: TAKE ONE TABLET BY MOUTH EVERY 8 HOURS NEEDED FOR PAIN Rx Instructions: TAKE ONE TABLET BY MOUTH EVERY 8 HOURS NEEDED FOR PAIN tizanidine 4 mg tablet 4 mg PO BID MDD 2 PRN (Reason: muscle spasticity) Qty: 60 6RF famotidine 20 mg tablet 40 mg PO BID 90 Days Qty: 360 3RF duloxetine 30 mg capsule,delayed release(DR/EC) 30 mg PO BID 90 Days Qty: 180 3RF Rx Instructions: no red dye (DME) custom molded orthotic inserts See Rx Instructions .Route .MEDSUPPLY Qty: 1 0RF Rx Instructions: As directed levothyroxine [Tirosint] 100 mcg capsule 100 mcg PO DAILY Qty: 90 1RF alendronate 70 mg tablet See Rx Instructions .ROUTE .COMPLEX Qty: 12 1RF Dose Instruction: TAKE ONE TABLET BY MOUTH ONCE WEEKLY Rx Instructions: TAKE ONE TABLET BY MOUTH ONCE WEEKLY promethazine 25 mg tablet 25 mg PO Q6H PRN (Reason: N/V) Qty: 30 0RF leflunomide 20 mg tablet 20 mg PO DAILY Qty: 30 3RF calcium carbonate 500 mg calcium (1,250 mg) Tablet 500 mg PO DAILY Discharge Order = DC NOW: Discharge Order (Routine); Ordered 01/31/25 Ordered By: Haroldo Jordan Other Ambulatory Orders: Physical Therapy Eval and Treat Outpatient (Order) Timeframe: 3 Days Facility: [facility] - Location: Physical Therapy [facility] Ordered By: Haroldo Jordan Referrals: [facility] Outpatient Therapy [Outside] Referral Note: A [facility] has been sent for [facility] if you have not heard from them in 2 business days please call to schedule your appointment. If appointment is scheduled and you cannot attend please call to reschedule or cancel. Reese Mendez MD [Referring, Otolaryngology (ENT)] Referral Note: We have faxed your information to [facility] to get an appointment. They will be calling you in 2 business days with appointment information if you do not hear from them give them a call. Tesha Chance MD [Primary Care Provider, Family Practice] - 02/06/25 11:00 am Referral Note: Discharge Diet: Usual diet Discharge Activity: Increase activity as tolerated Patient Instructions: Lorazepam (By mouth), Meclizine (By mouth), Opioid Safety, Pain Management, Patient Portal & [place] Instructions Activity Restrictions/Additional Instructions: Thank you for choosing [facility] for your healthcare needs today. It is very important that you follow up as instructed or that you return to the Emergency Department should you have concerns or if your condition changes or worsens in any way. Emergency department visits are focused on emergent conditions, in some cases you may require further evaluation on an outpatient basis. You are seen emergency room with complaints of chest pain and vertiginous symptoms. Cardiac enzymes and chest x-ray and EKG did not show any acute abnormalities no sign of acute coronary syndrome. CT of your head CTA of your head and neck also did not show any signs of acute stroke on exam there is no sign of acute stroke. Will discharge you home with Ativan to use as needed for the vertiginous symptoms. Case management we set you up for an outpatient Lexiscan sestamibi stress test. Follow-up with your primary care doctor as needed. (Please note that included in your discharge packet is information concerning opioid safety and pain management. This information is given to all patients were discharged from the ER regardless of their discharge diagnosis or the medicines they usually take or are prescribed.) Discharge Attestations Time Spent in Discharge Care*: greater than 30 min Specific Discharge Activities: educating patient, educating and/or supporting family/caregiver, discussing with pcp/other providers, discussing with case worker/social workers/dc planners, documenting/other paperwork and evaluating patient/reviewing data Status at Discharge: Cognitive status at discharge: cognitively intact , Behavioral status at discharge: cooperative , Functional status at discharge: other assisted ambulation , Overall status at discharge: patient is back to baseline Quality Metrics Clinical Quality Measures [ No reported AMI, CVA or VTE this stay] Coding Level of Care Code Acute Code for Chg Fwd Diagnoses Atypical chest pain R07.89 Vertigo R42 Spondylosis of lumbar region without myelopathy or radiculopathy M47.816 Spinal osteoarthritis complication: without myelopathy or radiculopathy Nausea and vomiting R11.2 Multiple falls R29.6 High risk medication use Z79.899 Inflammatory arthritis M19.90 Carmen's disease E06.3
[2025-01-31 15:01] VITALS: BP 149/89; PULSE 71; RESP 16; TEMP 36.7; O2SAT 97
[2025-02-04 10:32] LABS: Vitamin B1(Thiamin) Plas/Ser 7 nmol/L (8-30)
== END 2025-01-31 15:09 | disposition home or self-care (01) | DRG 149 ==
LOC: ER 20:57 → MEDSURG 21:23
PROVIDERS: Family Medicine; Admitting Provider Internal Medicine; Emergency Provider Student in an Organized Health Care Education/Training Program; PCP Family Medicine; Visit Provider Student in an Organized Health Care Education/Training Program
DX: H81.10 Benign paroxysmal vertigo, unspecified ear (principal); M96.0 Pseudarthrosis after fusion or arthrodesis; R07.89 Other chest pain; M43.16 Spondylolisthesis, lumbar region; M47.816 Spondylosis without myelopathy or radiculopathy, lumbar region; R11.2 Nausea with vomiting, unspecified; R29.6 Repeated falls; E06.3 Autoimmune thyroiditis; M19.90 Unspecified osteoarthritis, unspecified site; Z98.1 Arthrodesis status; Z79.899 Other long term (current) drug therapy
CPT/HCPCS: 36415; 70450; 70496; 70498; 70551; 71045; 80053; 81001; 82607; 83735; 84100; 84425; 84443; 84484; 85025; 93005; 96372; 97162; 97530; G0378; J1644; J1885; J2060; J7030; J8597; J9999; Q0169